=== PATIENT | female | born 1940 | race Caucasian/White ===

== ENCOUNTER 2021-05-23 09:23 | Emergency (ER) | payer MEDICARE, OTHER, SELFPAY ==
[2021-05-23 09:39] VITALS: BP 147/56; PULSE 90; RESP 14; TEMP 37.1; O2SAT 97
--- NOTE | 2021-05-23 10:14 | ED.SKABFB ---
HPI - Skin/Abscess/Foreign Bdy General Chief complaint: Skin/Abscess/Foreign Body Stated complaint: Rash and Swollen Face, Rash on Arms Time Seen by Provider: 05/23/21 10:07 Source: patient and RN notes reviewed Mode of arrival: ambulatory Limitations: no limitations History of Present Illness HPI narrative: Patient presents today complaining of a rash to her bilateral hands, right elbow, and face x2 days after pulling weeds in her yard. States the swelling in her face is worse this morning. She has been using calamine lotion, Benadryl, and Claritin with mild relief. complaint: rash Related Data Home Medications Medication Instructions Recorded Confirmed aspirin [Aspirin Childrens] 81 mg PO DAILY 05/23/21 05/23/21 atorvastatin 80 mg PO DAILY 05/23/21 05/23/21 carvedilol 6.25 mg PO DAILY 05/23/21 05/23/21 losartan 50 mg PO DAILY 05/23/21 05/23/21 pantoprazole 40 mg PO DAILY 05/23/21 05/23/21 Allergies Allergy/AdvReac Type Severity Reaction Status Date / Time No Known Allergies Allergy Verified 05/23/21 09:59 Review of Systems Review of Systems: Narrative: CONSTITUTIONAL: Denies body aches, fever, chills, or sweats. EYES: Denies visual changes, redness, or discharge. ENT: Denies rhinorrhea, congestion, sore throat, or otalgia. CARDIOVASCULAR: Denies chest pain, palpitations, or edema. RESPIRATORY: Denies cough or dyspnea. GASTROINTESTINAL: Denies abdominal pain, nausea, vomiting, or diarrhea. GENITOURINARY: Denies dysuria or hematuria. SKIN:+ Rash. MUSCULOSKELETAL: Denies back pain, joint pain, or myalgia. NEUROLOGIC: Denies headache, numbness, tingling, or weakness. PSYCH: Denies depression or anxiety. [facility] Past Medical History Medical History (Updated 05/23/21 @ 10:20 by Annie Dasilva, [facility], ) GERD (gastroesophageal reflux disease) High cholesterol Hypertension Comments At time of signature, I have reviewed and agree with nursing past medical, surgical, social and family history unless otherwise noted. Please see nursing chart for further information. There is no relevant family history pertinent to the presenting complaint Exam Narrative: Exam Narrative: GENERAL: Well-appearing, well-nourished, and in no acute distress. HEAD: Normocephalic, atraumatic. EYES: EOMI. No redness or drainage. Conjunctivae normal. ENT: Mucous membranes pink and moist. NECK: Normal AROM. CHEST: No respiratory distress. EXTREMITIES: Normal range of motion. No edema. SKIN: Warm, dry. Capillary refill normal. Normal skin turgor. Erythematous maculopapular rash to the dorsums of the bilateral hands, extending to the right elbow. Similar rash to the forehead, bilateral cheeks and temples with mild edema to the right cheek and right lower eyelid. NEURO: No focal deficits. Alert and oriented x3. Gait steady. PSYCH: Normal affect. No signs of depression or anxiety. Course Vital Signs Vital signs: Vital Signs Temperature 98.7 F 05/23/21 09:39 Pulse Rate 90 05/23/21 09:39 Respiratory Rate 14 05/23/21 09:39 Blood Pressure 147/56 H 05/23/21 09:39 Pulse Oximetry 97 05/23/21 09:39 Temperature 98.7 F 05/23/21 09:39 Pulse Rate 90 05/23/21 09:39 Respiratory Rate 14 05/23/21 09:39 Blood Pressure 147/56 H 05/23/21 09:39 Pulse Oximetry 97 05/23/21 09:39 Reviewed. Pt has been instructed to follow up with her PCP regarding her elevated blood pressure today. MDM - Skin/Abscess/Foreign Bdy Differential Diagnosis Differential diagnosis: Likely urticaria, cellulitis, eczema, insect bites, impetigo and contact dermatitis Critical Care Time Critical Care Time Critical Care Time: No Discharge Plan Discharge Clinical Impression: Contact dermatitis Qualifiers: Contact dermatitis type: unspecified Contact dermatitis trigger: unspecified trigger Qualified Code(s): L25.9 - Unspecified contact dermatitis, unspecified cause Patient Disposition: Home, Self-Care Condition: Stable
== END 2021-05-23 10:21 | disposition home or self-care (01) ==
PROVIDERS: Emergency Provider Nurse Practitioner; PCP Internal Medicine
DX: L25.9 Unspecified contact dermatitis, unspecified cause (principal); K21.9 Gastro-esophageal reflux disease without esophagitis; E78.00 Pure hypercholesterolemia, unspecified; I10 Essential (primary) hypertension
CPT/HCPCS: 99203; G0463

== ENCOUNTER 2022-12-23 13:47 | Outpatient (CLI) | payer MEDICARE, SELFPAY ==
--- NOTE | 2022-12-23 14:45 | ECG_ITS ---
Measurements Intervals [place] Rate: 69 P: 31 CO: 170 QRS: -4 QRSD: 89 T: 21 QT: 388 QTc: 417 Interpretive Statements SINUS RHYTHM MODERATE VOLTAGE CRITERIA FOR LVH, CONSIDER NORMAL VARIANT [MEETS CRITERIA IN ONE OF: R(aVL), S(V1), R(V5), R(V5/V6)+S(V1)] NO PREVIOUS ECG AVAILABLE FOR COMPARISON Electronically Signed On 12-24-2022 8:17:51 REVENUE ANALYST by Rhonda Cuevas M.D.
[2022-12-23 15:11] LABS: Basophils Absolute Auto 0.1 K/mm3 (0.0-0.1); Basophils Percent Auto 0.9 % (0.2-1.2); Eosinophils Absolute Auto 0.3 K/mm3 (0-0.3); Eosinophils Percent Auto 3.7 % (0-4.4); Hematocrit 39.8 % (37.0-47.0); Immature Granulocyte Absolute 0.02 K/mm3 (0.00-0.031); Immature Granulocyte Percent A 0.2 % (0-0.5); Lymphocytes Absolute Auto 3.12 K/mm3 (0.9-3.2); Mean Corpuscular HGB Conc 32.7 g/dl (32-36); Mean Corpuscular Hemoglobin 33.4 pg (26-34); Mean Corpuscular Volume 102.3 fl (80-100); Mean Platelet Volume 9.5 fl (7.4-10.4); Monocytes Absolute Auto 0.8 K/mm3 (0.1-0.6); Monocytes Percent Auto 8.8 % (2.6-8.5); Neutrophils Absolute Auto 4.8 K/mm3 (1.3-6.7); Neutrophils Percent Auto 52.4 % (45.5-73.1); Platelet Count Result 236 k/mm3 (150-375); Red Blood Count 3.89 M/mm3 (4.2-5.4); Red Cell Distribution Width 13.1 % (11.5-14.5); White Blood Count 9.2 K/mm3 (4.5-10.0)
[2022-12-23 15:23] LABS: Prothrombin Time 13.1 Seconds (11.1-14.7)
[2022-12-23 15:24] LABS: Partial Thromboplastin Time 23.9 SECONDS (22.3-36.8)
[2022-12-23 15:36] LABS: Alanine Aminotransferase 22 U/L (6-35); Albumin Level 4.2 g/dL (3.5-5.1); Alkaline Phosphatase 109 U/L (38-126); Anion Gap 4 mmol/L (8-16); Aspartate Amino Transferase 28 U/L (14-36); Bilirubin,Total 0.6 mg/dL (0.2-1.3); Blood Urea Nitrogen 18 mg/dL (7-17); Calcium 8.8 mg/dL (8.4-10.2); Carbon Dioxide 29 mmol/L (22-30); Chloride 105 mmol/L (98-107); Estimated Glomerular Filt Rate > 60; Glucose 120 mg/dL (65-110); Sodium 138 mmol/L (137-145)
== END 2022-12-23 13:48 | disposition home or self-care (01) ==
PROVIDERS: PCP Internal Medicine; Visit Provider Urology
DX: N81.4 Uterovaginal prolapse, unspecified (principal); I10 Essential (primary) hypertension; Z01.818 Encounter for other preprocedural examination
CPT/HCPCS: 36415; 80053; 85025; 85610; 85730; 87086; 93005

== ENCOUNTER 2023-01-06 02:49 | Day surgery (SDC) | payer MEDICARE, SELFPAY ==
--- NOTE | 2022-12-23 13:21 | PC.NURSE ---
PRE-OP INSTRUCTIONS, PLEASE READ CAREFULLY Report to the Outpatient Waiting Room, entrance under the green pavilion located off [facility], at time _0700_ on date _01/06/23_. Planned Procedure Time: _0900_. PACK A SMALL OVERNIGHT BAG AND LEAVE IN THE CAR Time changes happen often and if your time is changed the preop area will call you the afternoon before. - You and your visitor will be asked to self-screen and do not enter if you have any COVID symptoms. - Only one visitor is requested with a max of two and NO children visitors are allowed at this time. - The patient visitor may be requested to leave or wait in car when not with patient due to distancing restrictions. - A mask is optional within the hospital at this time. -VISITING HOURS 8AM-8PM Patients may have clear liquids (water, carbonated beverages, clear teas, apple juice) until 3 hours prior to surgery (0600 AM) with a maximum of 20 ounces. - No food from midnight until time of surgery Take the following medications with a SIP of water the morning of surgery: _CARVEDILOL__ DO NOT STOP ANY OF YOUR OTHER PRESCRIPTION MEDICATIONS PRIOR TO SURGERY ?EXCEPT THE FOLLOWING Medications to discontinue _ASPIRIN PER DR. WILSON INSTRUCTIONS. ALL VITAMINS & SUPPLEMENTS 7 DAYS PRIOR TO SURGERY, Date to take last dose 12/29/22_ Please no make-up, nail kyrgyz, hairspray, perfume, deodorant, or body powder the day of surgery. No jewelry (including any body piercings) or valuables the day of surgery, leave them at home. Please take a shower or bath the night before, or the morning of, surgery with an antibacterial soap. Wear comfortable, loose fitting clothing. - Jewelry must be removed prior to entering the operating room. Rings and piercings that are not removed may be cut off. - The hospital will not accept responsibility for valuables. - Please leave all valuables, including medications, at home the day of surgery. If you are going home after surgery, a licensed team otr truck driver must drive you home. - NO public transportation without another adult if you receive anesthesia. - We recommend that an adult stay with you for 24 hours following discharge. - We also recommend that you do not drive, make important decision, drink alcoholic beverages, or take any drugs that were not prescribed by your health care provider for at least 24 hours after your discharge time. Follow any additional instructions given to you from your surgeon. If you or anyone in your household have experienced Covid symptoms in the past week, please notify your surgeon or the nurse liaison at the phone number below for possible testing. Instructions given to _PATIENT_and asked if any additional questions and then verbalized understanding. Patient advised to call surgeon office or pre surgery nurse liaison [phone] if any additional questions.
[2022-12-23 14:23] VITALS: BP 186/70; PULSE 68; RESP 20; TEMP 36.9; O2SAT 97; BMI 25.3
--- NOTE | 2023-01-05 08:19 | PM.IMHP ---
H&P: HPI History of Present Illness Date/Time: 01/05/23 08:19 Chief Complaint: pelvic organ prolapse Narrative: she has history of prolapse. She has history of stress incontinence as well. This resolved as her prolapse worsened. She presents for a surgical procedure for her prolapse Review of Systems Review of Systems: All systems reviewed & are unremarkable except as noted in HPI and below PMFSH Past Medical History Medical History GERD (gastroesophageal reflux disease) High cholesterol Hypertension Social History Social History Smoking status: Never smoker Second hand tobacco smoke exposure: No Alcohol intake: never Substance use: never Substance use type: does not use Living arrangements: alone Spiritual care concerns: No Meds Home Medications and Allergies Home Medications Medication Instructions Recorded Confirmed Type aspirin 81 mg chewable tablet 81 mg PO DAILY 05/23/21 12/23/22 History (Aspirin Childrens) carvedilol 6.25 mg tablet 6.25 mg PO BID 05/23/21 12/23/22 History pantoprazole 40 mg tablet,delayed 40 mg PO DAILY 05/23/21 12/23/22 History release Ca 600 mg-D3 20 mcg-mag oxide 50 tablet PO DAILY 12/23/22 History vc-Rp-xmirkj-manganese-boron tablet (Calcium 600-D3 Plus (mag-zinc)) [place] 3 500 mg 2XW 12/23/22 12/23/22 History atorvastatin 40 mg tablet 40 mg HS 12/23/22 12/23/22 History coenzyme Q10 100 mg capsule 100 mg PO DAILY 12/23/22 12/23/22 History (CoQ-10) garlic 1,000 mg capsule 1,000 mg PO DAILY 12/23/22 12/23/22 History ginkgo biloba extract-Panax 1 cap PO DAILY 12/23/22 12/23/22 History ginseng root extract 60 mg-100 mg capsule losartan 100 mg tablet 100 mg QAM 12/23/22 12/23/22 History turmeric root extract 500 mg 500 mg PO DAILY 12/23/22 12/23/22 History capsule vit C 250 mg-vit E 90 mg-zinc 40 1 tablet PO BID 12/23/22 12/23/22 History mg-copper 1 vi-lhqlik-afociq capsule (PreserVision AREDS-2) vitamin E 670 mg (1,000 unit) 670 mg PO DAILY 12/23/22 12/23/22 History capsule Allergies Allergy/AdvReac Type Severity Reaction Status Date / Time No Known Allergies Allergy Verified 12/23/22 14:08 Exam Narrative: cystocele +4. [place] at +1 minimal urethral mobility alert orient x3 normal breathing Assessment and Plan Assessment and plan (1) Uterine prolapse: Code(s): N81.4 - Uterovaginal prolapse, unspecified Status: Acute (2) BALTA (stress urinary incontinence, female): Code(s): N39.3 - Stress incontinence (female) (male) Status: Acute (3) Intrinsic sphincter deficiency (ISD): Code(s): N36.42 - Intrinsic sphincter deficiency (ISD) Status: Acute Plan plan for prolapse repair as well as stress incontinence procedure. Colpocleisis, possible sling, possible bulking agent, possible cystocele repair with perineorrhaphy. She understands risks of bleeding, infection, damage surrounding organs, damage to the urinary tract, damage to the bowel, recurrence of prolapse, inability to have penetrative intercourse, some leg pain, postoperative voiding dysfunction including incontinence and retention, mesh related complications. She agrees to proceed
[2023-01-06] VITALS (10 sets, daily range): BP systolic 127–157; BP diastolic 58–99; PULSE 84–100; RESP 10–18; TEMP 36.4–36.5; O2SAT 95–100
--- NOTE | 2023-01-06 07:07 | WPDHPUPDATE1 ---
History and Physical Update Update Date/Time: 01/06/23 07:07 History and Physical has been reviewed, including an updated exam of the patient. There are NO changes in the patient's condition. Risks, benefits, and alternatives have been discussed and questions answered. Patient agrees to proceed with procedure.
--- NOTE | 2023-01-06 07:49 | WPDANESEPPF ---
Anes - Initial Pre Proc Eval Procedure: Operation Date: 01/06/23 09:30 Proposed Procedures p Colpocleisis - Oc Roldan MD Date/Time: 01/06/23 07:49 Surgeon: Oc Roldan MD Pre Op Diagnosis: Cystocele with Prolapse, Stress Incont Patient Data Age: 82 Gender: F Height: 1.63 m Weight: 66.9 kg Last Vital Signs Temp 36.9 C 12/23/22 14:23 Pulse 68 12/23/22 14:23 Resp 20 12/23/22 14:23 BP 186/70 H 12/23/22 14:23 Pulse Ox 97 12/23/22 14:23 O2 Del Method Room Air 12/23/22 14:23 Allergies Allergy/AdvReac Type Severity Reaction Status Date / Time No Known Allergies Allergy Verified 01/06/23 08:37 Home Medications Medication Instructions Recorded Confirmed Type aspirin 81 mg chewable tablet 81 mg PO DAILY 05/23/21 12/23/22 History (Aspirin Childrens) carvedilol 6.25 mg tablet 6.25 mg PO BID 05/23/21 12/23/22 History pantoprazole 40 mg tablet,delayed 40 mg PO DAILY 05/23/21 12/23/22 History release Ca 600 mg-D3 20 mcg-mag oxide 50 tablet PO DAILY 12/23/22 History vz-Sh-zvvtpa-manganese-boron tablet (Calcium 600-D3 Plus (mag-zinc)) [place] 3 500 mg 2XW 12/23/22 12/23/22 History atorvastatin 40 mg tablet 40 mg HS 12/23/22 12/23/22 History coenzyme Q10 100 mg capsule 100 mg PO DAILY 12/23/22 12/23/22 History (CoQ-10) garlic 1,000 mg capsule 1,000 mg PO DAILY 12/23/22 12/23/22 History ginkgo biloba extract-Panax 1 cap PO DAILY 12/23/22 12/23/22 History ginseng root extract 60 mg-100 mg capsule losartan 100 mg tablet 100 mg QAM 12/23/22 12/23/22 History turmeric root extract 500 mg 500 mg PO DAILY 12/23/22 12/23/22 History capsule vit C 250 mg-vit E 90 mg-zinc 40 1 tablet PO BID 12/23/22 12/23/22 History mg-copper 1 mh-quyuca-zktlvz capsule (PreserVision AREDS-2) vitamin E 670 mg (1,000 unit) 670 mg PO DAILY 12/23/22 12/23/22 History capsule Patient hx anesthesia problems: none Family hx anesthesia problems: none Results Review: All pre-operative results and documents have been reviewed as part of the pre-operative evaluation. [facility] Past Medical History Medical History (Updated 01/06/23 @ 07:50 by Alan Jauregui MD) CAD (coronary artery disease) GERD (gastroesophageal reflux disease) High cholesterol Hypertension Surgical History Surgical History (Updated 01/06/23 @ 07:50 by Alan Jauregui MD) History of coronary artery stent placement Social History Social History Smoking status: Never smoker Second hand tobacco smoke exposure: No Alcohol intake: never Substance use: never Substance use type: does not use Living arrangements: alone Spiritual care concerns: No Anes - Eval Final PreProcedure Day of Procedure 01/06/23 07:49 Patient weight: normal Heart: regular rate and rhythm Lungs: clear to auscultation Airway: Mallampati scale class II Neurological: alert and oriented Last oral intake: >/= 8 hours ASA classification: III Emergent: no Anesthetic plan: proceed Anesthesia type and monitoring: general LMA and standard monitoring Results Review: All pre-operative results and documents have been reviewed as part of the pre-operative evaluation. Informed Consent: The patient's anesthetic plan and its attendant risks and benefits were discussed with the patient/family/POA. Questions were solicited and answers provided to the satisfaction of the patient/family/POA.
[2023-01-06] MEDS: LACTATED RINGERS 1,000 ML 30 ML IV CONT (08:36)
[2023-01-06] MEDS: ceFAZolin 2 GM/D5W 50 ML 2 GM/50 ML BAG IVPB (09:08)
[2023-01-06] MEDS: BUPIVACAINE/EPINEPHRINE 0.5% 10 ML VIAL 40 ML INFILTRATE (09:42)
[2023-01-06] MEDS: KETOROLAC 15 MG/ML VIAL (*BKC) IV PUSH (10:17)
--- NOTE | 2023-01-06 10:28 | P.OP_ITS ---
Procedure Note - Detailed Date of Procedure 01/06/23 Pre-op Diagnosis Cystocele, uterine Prolapse, female perineal laxity, Stress Incontinence Post-op Diagnosis Same Procedure Performed cystocele repair perineorrhaphy mid urethral sling Surgeon Oc Roldan MD Supervisor [employer] [place] Anesthesia General Indications this is a woman pelvic organ prolapse as well as stress incontinence. She is not sexually active. She presents for the above operation. She understands risks of bleeding, infection, damage to the urinary tract, damage to the bowel, bowel injury, recurrence of prolapse, inability to have penetrative intercourse, mesh related complications including exposure and extrusion, postoperative voiding dysfunction including incontinence and retention, hip and leg pain. She agrees to proceed Findings large cystocele. Moderate loss of apical support. Hyper mobile urethra. Female perineal laxity. Description of Procedure She has correctly identified. Informed consent obtained. She from the operating room. She was given general anesthesia. She was placed in dorsal thigh position. She was prepped and draped sterile fashion. Time-out performed. I placed a [place] retractor. I placed a Chou catheter. I grasped the cystocele. It came beyond the vaginal introitus. She had moderate loss of apical support to the level of the hymenal ring. I decided to perform a cystocele repair with significant perineorrhaphy thus simulating a colpocleisis. I grasped the cystocele with Allis clamps. I anesthetized the anterior vaginal wall with local mixed with saline and epinephrine. I made a midline vaginal incision. I dissected the vaginal mucosa off the underlying fascial structures laterally and the well past the apex. I then performed a significant cystocele repair using interrupted 0 Vicryl sutures. This completely reduced the bladder prolapse. I then trimmed significant excess vaginal mucosa. I closed the vaginal mucosa with a running 2-0 Vicryl suture. I then turned my attention towards the mid urethral sling. I marked out the thigh incisions. I anesthetized the skin and made those incisions. I then anesthetized the anterior vaginal wall the mid urethra. I made 1 cm incision. I dissected out laterally taking great care not to injure the refill vaginal wall. Passed the helical trocars. I did this 1st on the left and then on the right. From the thigh incision towards the vaginal incision. Sling was connected to the trocars above the thigh incision. I tensioned appropriately. I cut and removed the plastic sheaths. I then closed incision with 2-0 Vicryl. On cystoscopy she had moderate trabeculations there is no bladder abnormalities. Both ureters were seen to excrete clear yellow urine and guidewires were placed up both ureters documenting patency. There was no surgical artifact the bladder or urethra I then anesthetized a jorge-shaped area of skin on the perineum. I removed this area of skin. I then performed a high perineorrhaphy. I did this with -0 Vicryl sutures. I used a 2-0 Vicryl to close the mucosa. There was excellent perineal support. Rectal exam was normal. Her bladder was left empty. She was awakened transferred to PACU in stable condition Estimated Blood Loss 50 Packing No Pathology None sent Complications No immediate complications Condition Stable Disposition PACU
== END 2023-01-06 13:00 | disposition home or self-care (01) ==
PROVIDERS: PCP Internal Medicine; Visit Provider Urology
PROC: (CPT 57120; principal; 2023-01-06 09:30)
DX: N81.4 Uterovaginal prolapse, unspecified (principal); N39.3 Stress incontinence (female) (male); I25.10 Atherosclerotic heart disease of native coronary artery without angina pectoris; I10 Essential (primary) hypertension; E78.00 Pure hypercholesterolemia, unspecified; K21.9 Gastro-esophageal reflux disease without esophagitis; Z79.82 Long term (current) use of aspirin; Z95.5 Presence of coronary angioplasty implant and graft
CPT/HCPCS: 57288; 57240; 36415; 86850; 86900; 86901; C1758; C1769; C1771; J0690; J1885; J2405; J2704; J3010; J7030; J7120

== ENCOUNTER 2023-07-20 09:32 | Emergency (ER) | payer MEDICARE, SELFPAY ==
[2023-07-20 09:45] VITALS: BP 133/74; PULSE 94; RESP 16; TEMP 36.8; O2SAT 97
--- NOTE | 2023-07-20 10:10 | ED.GENADULT ---
HPI - General Adult General Chief complaint: Upper Respiratory Infection Stated complaint: Cough/Congestion Source: patient and RN notes reviewed History of Present Illness HPI narrative: 82 yo F presents to urgent care with complaints of congestion, cough, and for approximately 1 week. Pt states she feels like the congestion is moving down into her chest. Pt has reported some diarrhea at home. Pt is taking mucinex at home with minimal relief. Denies any vomiting, chest pain, SOB, fevers, or chills. Related Data Home Medications Medication Instructions Recorded Confirmed aspirin 81 mg chewable tablet 81 mg PO DAILY 05/23/21 12/23/22 (Aspirin Childrens) carvedilol 6.25 mg tablet 6.25 mg PO BID 05/23/21 12/23/22 pantoprazole 40 mg tablet,delayed 40 mg PO DAILY 05/23/21 12/23/22 release Ca 600 mg-D3 20 mcg-mag oxide 50 tablet PO DAILY 12/23/22 tg-St-ikfmsu-manganese-boron tablet (Calcium 600-D3 Plus (mag-zinc)) [place] 3 500 mg 2XW 12/23/22 12/23/22 atorvastatin 40 mg tablet 40 mg HS 12/23/22 12/23/22 coenzyme Q10 100 mg capsule 100 mg PO DAILY 12/23/22 12/23/22 (CoQ-10) garlic 1,000 mg capsule 1,000 mg PO DAILY 12/23/22 12/23/22 ginkgo biloba extract-Panax 1 cap PO DAILY 12/23/22 12/23/22 ginseng root extract 60 mg-100 mg capsule losartan 100 mg tablet 100 mg QAM 12/23/22 12/23/22 turmeric root extract 500 mg 500 mg PO DAILY 12/23/22 12/23/22 capsule vit C 250 mg-vit E 90 mg-zinc 40 1 tablet PO BID 12/23/22 12/23/22 mg-copper 1 qn-uypyaf-comasm capsule (PreserVision AREDS-2) vitamin E 670 mg (1,000 unit) 670 mg PO DAILY 12/23/22 12/23/22 capsule Allergies Allergy/AdvReac Type Severity Reaction Status Date / Time No Known Allergies Allergy Verified 01/06/23 08:37 Review of Systems Review of Systems: Pertinent positives and pertinent negatives per HPI. [facility] Past Medical History Medical History (Updated 07/20/23 @ 10:19 by Shruthi Blank APRN) CAD (coronary artery disease) GERD (gastroesophageal reflux disease) High cholesterol Hypertension Surgical History Surgical History (Updated 01/06/23 @ 07:50 by Alan Jauregui MD) History of coronary artery stent placement Social History Social History Smoking status: Never smoker Second hand tobacco smoke exposure: No Alcohol intake: never Substance use: never Substance use type: does not use Living arrangements: alone Gender identity (if verbalized by the patient): Female Spiritual care concerns: No Comments At the time of my signature, I reviewed and agree with the nursing past medical, surgical, social, and family history. There is no relevant family history pertinent to the patient complaint. Exam Narrative: GENERAL: This is a well-nourished, well-developed patient, in no apparent distress. HEAD: normocephalic, atraumatic. EYES: Sclera clear/white. Vision is grossly intact. EARS: External ears normal, auditory canals clear and without drainage, TMs normal without perforation. Hearing grossly intact. NOSE: congested THROAT: Mucous membranes moist, posterior pharynx erythremic NECK: Neck supple, non-tender without lymphadenopathy, masses or thyromegaly. CARDIOVASCULAR: Regular rate and rhythm without murmurs, gallops, or rubs. RESPIRATORY: Clear to auscultation. Breath sounds equal bilaterally. No wheezes, rales, or rhonchi. SKIN: warm, intact with no suspicious lesions or rash, good texture and turgor. NEURO: awake, alert, and oriented to person, place and time. There were no obvious focal neurologic abnormalities. Course Course Level of Care: Express Care Visit Vital Signs Vital signs: Vital Signs Temperature 98.3 F 07/20/23 09:45 Pulse Rate 94 07/20/23 09:45 Respiratory Rate 16 07/20/23 09:45 Blood Pressure 133/74 07/20/23 09:45 Pulse Oximetry 97 07/20/23 09:45 Oxygen Delivery Room Air 07/20/23 09:45
== END 2023-07-20 10:44 | disposition home or self-care (01) ==
PROVIDERS: Emergency Provider Nurse Practitioner Family; PCP Internal Medicine
DX: J02.0 Streptococcal pharyngitis (principal); Z20.822 Contact with and (suspected) exposure to COVID-19; I25.10 Atherosclerotic heart disease of native coronary artery without angina pectoris; K21.9 Gastro-esophageal reflux disease without esophagitis; E78.00 Pure hypercholesterolemia, unspecified; I10 Essential (primary) hypertension; Z79.82 Long term (current) use of aspirin
CPT/HCPCS: 87426; 87880; 99213; C9803; G0463

== ENCOUNTER 2025-07-03 11:18 | Emergency (ER) | payer MEDICARE, SELFPAY ==
[2025-07-03 11:25] VITALS: BP 178/93; PULSE 99; RESP 20; TEMP 36.4; O2SAT 97
[2025-07-03 11:49] LABS: EDUAAPPEAR Cloudy; EDUABILI Negative (Negative); EDUABLOOD 1+ (Negative); EDUACOLOR1 Yellow; EDUAGLUCOSE Negative (Negative); EDUAKETONE Negative (Negative); EDUALEUKO 3+ (Negative); EDUANITRATE Positive (Negative); EDUAPH 6.5; EDUAPROTEIN 1+ (Negative); EDUASPGRAVITY 1.020; EDUAUROBILI 1.0
--- NOTE | 2025-07-03 11:54 | ED.FEMALEGU ---
HPI - Female Genitourinary General Chief complaint: Urogenital-Female Stated complaint: Urinary Problem Time Seen by Provider: 07/03/25 11:40 Source: patient Mode of arrival: ambulatory Limitations: no limitations History of Present Illness HPI Narrative: 84-year-old female presents with complaint of urinary frequency, urgency, mild nausea, chills and fatigue. Symptoms for approximately 2 weeks. Afebrile. Denies vomiting. no abdominal or back pain. All systems reviewed and negative except as noted above. Related Data Home Medications ?Medication ?Instructions ?Recorded ?Confirmed ?Last Taken ?Type aspirin 81 mg chewable tablet 81 mg PO DAILY 05/23/21 12/23/22 Unknown History (Aspirin Childrens) Held on 01/06/23. Instructions: Resume on 01/08/23. carvedilol 6.25 mg tablet 6.25 mg PO BID 05/23/21 12/23/22 Unknown History pantoprazole 40 mg tablet,delayed 40 mg PO DAILY 05/23/21 12/23/22 Unknown History release Attica 3 500 mg 2XW 12/23/22 12/23/22 Unknown History calcium 600 mg-D3 20 mcg-magnesium tablet PO DAILY 12/23/22 Unknown History 50 qa-Xj-modazy-melanie-boron tablet (Calcium 600-D3 Plus (mag-zinc)) coenzyme Q10 100 mg capsule 100 mg PO DAILY 12/23/22 12/23/22 Unknown History (CoQ-10) garlic 1,000 mg capsule 1,000 mg PO DAILY 12/23/22 12/23/22 Unknown History ginkgo biloba extract-Panax 1 cap PO DAILY 12/23/22 12/23/22 Unknown History ginseng root extract 60 mg-100 mg capsule losartan 100 mg tablet 100 mg QAM 12/23/22 12/23/22 Unknown History turmeric root extract 500 mg 500 mg PO DAILY 12/23/22 12/23/22 Unknown History capsule vit C 250 mg-vit E 90 mg-zinc 40 1 tablet PO BID 12/23/22 12/23/22 Unknown History mg-copper 1 tn-gwxyfk-ylhzpy capsule (PreserVision AREDS-2) vitamin E 670 mg (1,000 unit) 670 mg PO DAILY 12/23/22 12/23/22 Unknown History capsule rzprqejy-clqlcgudf-milibuob 3.5 drp 07/03/25 Unknown History mg/mL-10,000 unit/mL-0.1% eye drops Allergies Allergy/AdvReac Type Severity Reaction Status Date / Time No Known Allergies Allergy Verified 07/03/25 11:21 [facility] Past Medical History Medical History (Updated 07/03/25 @ 11:51 by Melanie Meeks NP) CAD (coronary artery disease) GERD (gastroesophageal reflux disease) Hypertension High cholesterol Surgical History Surgical History (Updated 01/06/23 @ 07:50 by Alan Jauregui MD) History of coronary artery stent placement Social History Social History Smoking status: Never smoker Second hand tobacco smoke exposure: No Alcohol intake: never Substance use: never Substance use type: does not use Living arrangements: alone Gender identity (if verbalized by the patient): Female Spiritual care concerns: No Comments At time of signature, agree with nursing past medical, surgical, social and family history. There is no relevant family history pertinent to the presenting complaint. Exam Narrative: GENERAL: This is a well-nourished, well-developed patient, in no apparent distress. HEAD: normocephalic, atraumatic. EYES: PERRL. Sclera clear/white. Vision is grossly intact. EARS: External ears normal NOSE: External nose normal NECK: Neck supple, non-tender without lymphadenopathy, masses or thyromegaly. CARDIOVASCULAR: Regular rate and rhythm without murmurs, gallops, or rubs. RESPIRATORY: Clear to auscultation. Breath sounds equal bilaterally. No wheezes, rales, or rhonchi. SKIN: warm, Dry, intact with no suspicious lesions or rash, good texture and turgor. NEURO: awake, alert, and oriented to person, place and time. There were no obvious focal neurologic abnormalities. EXTREMITIES: No joint tenderness, effusion, or edema noted. Course Course Level of Care: Express Care Visit Vital Signs Vital signs: Vital Signs Temperature 36.4 C L 07/03/25 11:25 Pulse Rate 99 07/03/25 11:25 Respiratory Rate 20 07/03/25 11:25 Blood Pressure 178/93 H 07/03/25 11:25 Pulse Oximetry 97 07/03/25 11:25 Oxygen Delivery Room Air 07/03/25 11:25 Temperature 36.4 C L 07/03/25 11:25 Pulse Rate 99 07/03/25 11:25 Respiratory Rate 20 07/03/25 11:25 Blood Pressure 178/93 H 07/03/25 11:25 Pulse Oximetry 97 07/03/25 11:25 Oxygen Delivery Room Air 07/03/25 11:25 Reviewed MDM - Female Genitourinary MDM Narrative Medical decision making narrative: urinalysis 3+ leukocytes, positive nitrates, 1+ blood. Will treat with Augmentin. Patient is well-appearing, nontoxic. Afebrile. Differential Diagnosis Differential diagnosis: Likely urinary tract infection Lab Data Labs: Lab Results 07/03/25 Range/Units 11:35 POC Urine Color Yellow POC Urine Clarity Cloudy POC Urine pH 6.5 POC Ur Specif Viola 1.020 POC Urine Protein 1+ (Negative) POC Ur Glucose (UA) Negative (Negative) POC Urine Ketones Negative (Negative) POC Urine Blood 1+ (Negative) POC Urine Nitrite Positive (Negative) POC Urine Bilirubin Negative (Negative) POC Urine Urobilinogen 1.0 POC U Leukocyte Esteras 3+ (Negative) Discharge Plan Discharge Clinical Impression: Urinary tract infection Patient Disposition: Home Condition: Stable Instructions: Antibiotic Form, Urinary Tract Infection in Women (ED) Additional Instructions: Take antibiotic as prescribed until gone. Drink at least 64 oz of water a day. See your doctor if symptoms are not improving. Patient Language: Austrian Prescriptions: New amoxicillin-pot clavulanate [Augmentin] 500-125 mg tablet 1 tablet PO BID 7 Days Qty: 14 0RF No Action carvedilol 6.25 mg tablet 6.25 mg PO BID pantoprazole 40 mg tablet,delayed release (DR/EC) 40 mg PO DAILY aspirin [Aspirin Childrens] 81 mg Tablet,Chewable 81 mg PO DAILY neomycin-polymyxin B-dexameth 3.5mg/mL-10,000 unit/mL-0.1 % drops,suspension vitamin E 670 mg (1,000 unit) Capsule 670 mg PO DAILY garlic 1,000 mg Capsule 1,000 mg PO DAILY losartan 100 mg tablet 100 mg QAM coenzyme Q10 [CoQ-10] 100 mg Capsule 100 mg PO DAILY ginkgo biloba-Panax ginseng rt 60-100 mg Capsule 1 cap PO DAILY turmeric root extract 500 mg Capsule 500 mg PO DAILY PreserVision AREDS-2 250-90-40-1 mg Capsule 1 tablet PO BID Ca-D3-mag rx-ojem-udl-nell-bor [Calcium 600-D3 Plus (mag-zinc)] 600 mg calcium- 20 mcg-50 mg Tablet PO DAILY Attica 3 500 mg 2XW docusate sodium [Colace] 100 mg capsule 100 mg PO BID Qty: 60 0RF tramadol 50 mg tablet 50 mg PO Q6H PRN (Reason: pain) Qty: 20 0RF Follow-up/Referrals: Wolf,Mehran Adames MD [Primary Care Provider, Unknown] Time of Disposition: 11:52
--- OUTSIDE RECORDS SUMMARY | 2025-07-03 12:01 | XMS_ITS | Encounter Summary ---
Author Organization [facility] Address [address] [place] [address] Phone Care Team Providers Care Bookkeeping Machine Operator Name Role Phone Mehran Bloom MD Primary Care Provider [phone] Salvador Harmon MD Unavailable Reji Donald MD Unavailable [phone] Reason for Visit * Reason Comments Medication Refill Encounter Details Date Type Department Care Team (Late st Contact Info) Description 04/16/2024 Refill [facility] - Internal Medicine - [place] [address] [place] [id number] Mehran Bloom MD [address] [place] [address] Medication Refill Social History Tobacco Use Types Packs/Day Years Used Date Smoking Tobacco: Never Passive Smoke Exposure: Never Smokeless Tobacco: Never Alcohol Use Standard Drinks/Week Comments Not Currently 0 (1 standard drink = 0.6 oz pur e alcohol) glass of wine rarely [facility] Utilities Answer Date Recorded In the past 12 months has [employer] electric, gas, oil, or water company threatened to shut off services in your home? No 02/08/2024 Social Connection and Isolation Panel Answer Date Recorded In a typical week, how many times do you talk on the phone with family, friends, or neighbors? More than three times a week 02/08/2024 How often do you get togethe r with friends or relatives? More than three times a week 02/08/2024 How often do you attend chur ch or jainism services? More than 4 times per year 02/08/2024 Do you belong to any clubs o r organizations such as catholic groups, unions, fraternal or athletic groups, or school groups? Yes 02/08/2024 How often do you attend meet ings of the clubs or organizations you belong to? More than 4 times per year 02/08/2024 Are you , , di vorced, , never , or living with a partner? 02/08/2024 AUDIT-C Answer Date Recorded Q1: How often do you have a drink containing alc ohol? Never 02/08/2024 Average Number of Drinks Not on file 024 Q3: How often do you have si x or more drinks on one occasion? Never 02/08/2024 Overall Financial Resource Strain (CARDIA) Answe r Date Recorded How hard is it for you to pa y for the very basics like food, housing, medical care, and heating? Not hard at all 02/08/2024 PHQ-2 Answer Date Recorded Total Score - Questions 1-9 1 01/12 [facility] - Occupational Stress Questionnaire Answer Date Recorded Do you feel stress - tense, restless, nervous, or anxious, or unable to sleep at night because your mind is troubled all the time - these days? Not at all 02/08/2024 Exercise Vital Sign Answer Date Recorde d On average, how many days pe r week do you engage in moderate to strenuous exercise (like a brisk walk)? 0 days 02/08/2024 On average, how many minutes do you engage in exercise at this level? 0 min 02/08/2024 Hunger Vital Sign Answer Date Recorded Within the past 12 months, y ou worried that your food would run out before you got the money to buy more. Never true 02/08/20 24 Within the past 12 months, t he food you bought just didn't last and you didn't have money to get more. Never true 02/08/2024 PRAPARE - Transportation Answer Date Re corded In the past 12 months, has l ack of transportation kept you from medical appointments or from getting medications? No 01/12 In the past 12 months, has l ack of transportation kept you from meetings, work, or from getting things needed for daily living? No 02/08/2024 Housing Stability Vital Sign Answer Gerry e Recorded In the last 12 months, was t here a time when you were not able to pay the mortgage or rent on time? No 02/08/2024 In the last 12 months, how many places have you lived? 1 02/08/2024 In the last 12 months, was t here a time when you did not have a steady place to sleep or slept in a group home (including now)? 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 Requested Prescriptions Pending Prescriptions Disp Refills pantoprazole (PROTONIX) 40 MG Tablet Delayed Response [Pharmacy Med Name: PANTOPRAZOLE SODIUM 40MG TABLET DR] 90 Tablet 0 Sig: TAKE ONE TABLET BY MOUTH EVERY DAY Proton Pump Inhibitors Protocol Passed - 04/16/2024 3:37 PM Passed - Visit with relevant provider in past 12 months or upcoming 90 days Recent Visits Date Type Provider Dept 03/12/24 Office Visit Mehran Bloom MD [facility] [place] 02/27/24 Office Visit Mehran Bloom MD [facility] [place] 02/08/24 Office Visit Mehran Bloom MD [facility] [place] 08/14/23 Telemedicine Mehran Bloom MD [facility] [place] 08/07/23 Office Visit Mehran Bloom MD [facility] [place] 05/04/23 Office Visit Mehran Bloom MD [facility] [place] Showing recent visits within past 365 days and meeting all other requirements Future Appointments Date Type Provider Dept 05/14/24 Appointment Mehran Bloom MD [facility] Showing future appointments within next 90 days and meeting all other requirements documented in this encounter Plan of Treatment Upcoming Encounters Date Type Department Care Team (Late st Contact Info) Description 08/25/2025 10:00 AM CDT Office Visit [facility] - Primary Care - [place] [address] [place] [address] Mehran Bloom MD [address] [place] [address] 10/30/2025 10:00 AM VACCINE MANAGER Office Visit [facility] - Pulmonology & Sleep Medicine [facility] [address] [place] [address] Salvador Harmon MD [address] [place] [address] documented as of this encounter Visit Diagnoses Not on filedocumented in this encounter Additional Health Concerns Assessment Noted Time PHQ-9 Depression Total Score: 1 02/08/20 24 8:58 AM CDT documented as of this encounter Care Teams Bookkeeping Machine Operator Relationship Specialty Start Date End Date Mehran Bloom MD PCP - General Internal Medicine 09/24/15 Salvador Harmon MD [address] [place] [address] Consulting Physician Pulmonary Disease 01/14/25 Reji Donald MD [address] [place] [address] Consulting Physician Neurology 04/24/25 documented as of this encounter
--- OUTSIDE RECORDS SUMMARY | 2025-07-03 12:01 | XMS_ITS | Clinical Summary ---
Author Organization [facility] Address [address] [place] [address] Phone Care Team Providers Care Athletic Monitor Name Role Phone Mehran Bloom MD Primary Care Provider [phone] Salvador Harmon MD Unavailable Reji Donald MD Unavailable [phone] Medications Acetaminophen (EQ ARTHRITIS PAIN PO) Take 2 Tabs by mouth daily. Active Ascorbic Acid (VITAMIN C PO) Take 1 Tab by mouth daily. Active atorvastatin (LIPITOR) 40 MG Tablet Take 1 Tablet by mouth nightly. 90 Tablet 1 5 Active losartan (COZAAR) 100 MG Tablet TAKE 1 TABLET BY MOUTH DAILY. 90 Tablet 1 5 Active pantoprazole (PROTONIX) 40 MG Tablet Delayed Response TAKE ONE TABLET BY MOUTH EVERY DAY 90 Tablet 5 Active carvedilol (COREG) 6.25 MG Tablet Take 1 Tablet by mouth 2 times daily. 180 Tablet 1 5 Active Additional Information Patient not taking.Reported on 07/03/2025 Active Problems Problem Noted Date Diagnosed Date ILD (interstitial lung disease) 01/14/2025 Primary pulmonary hypertension 01/14/2025 Cerebrovascular accident (CVA) of left basal elisha glia 05/14/2024 Stress incontinence of urine 12/29/2022 Coronary artery disease invo lving [place] coronary artery of [place] heart with angina pectoris 11/24/2020 Essential hypertension, benign 05/31/2016 Other hyperlipidemia 05/31/2016 Gastroesophageal reflux disease without esophagi tis 05/31/2016 Resolved Problems Problem Noted Date Diagnosed Date Resolved Date Other chest pain 11/24/2020 08/07/2023 Community acquired bacterial pneumonia 05/31/2016 11/24/2020 Acute cystitis 05/31/2016 11/24/2020 Hypokalemia 05/31/2016 11/24/2020 Encounters Date Type Department Care Team Description 07/03/2025 Nurse Triage [facility] [address] [place] [address] Mehran Bloom MD Appointment 05/26/2025 Results Follow-Up [facility] Internal Medicine [facility] [address] [place] [address] Mehran Bloom MD MRI L-SPINE W/O CONTRAST 05/24/2025 10:30 AM CDT - 05/24/2025 11:59 PM CDT Hospital Encounter [facility] MRI [address] [place] [phone] Mehran Bloom MD Discharge Disposition: Discharged to home or Selfcare 05/22/2025 10:40 AM CDT Office Visit [facility] Internal Medicine [facility] [address] [place] [address] Mehran Bloom MD Essential hypertension, benign (Primary Dx); Chronic bilateral low back pain with bilateral sciatica; Other hyperlipidemia; Coronary artery disease involving [place] coronary artery of [place] heart with angina pectoris (HCC); Gastroesophageal reflux disease without esophagitis Discharge Disposition: Discharged to home or Selfcare 05/22/2025 Travel 04/25/2025 Travel 04/22/2025 Refill [facility] Internal Medicine [facility] [address] [place] [phone] Mehran Bloom MD Medication Refill 04/17/2025 10:30 AM CDT Office Visit [facility] Pulmonology & Sleep Medicine [facility] [address] [place] [phone] Salvador Harmon MD ILD (interstitial lung disease) (HCC) (Primary Dx); Essential hypertension, benign; Gastroesophageal reflux disease without esophagitis Discharge Disposition: Discharged to home or Selfcare 04/17/2025 Travel from Last 3 Months Immunizations Immunization Administration Dates Next Due Covid-19, Mrna, Lnp-s, PF, 1 00 mcg/0.5 mL Dose (Moderna) 07/07/2021,06/09/2021 Influenza Vaccine greater than 3 yrs 10/03/2018 Influenza Vaccine, Quadrivalent, PF 08/03/2022,1 11/24/2020,08/12/2020 Influenza, Quadrivalent, Adjuvanted 08/07/2023 Influenza, Trivalent, Adjuvanted, PF 08/15/2024 Pneumococcal Vaccine - 13 Valent 06/01/2016,11/2013 Pneumococcal Vaccine Adult - 23 Valent 6 Family History Medical History Relation Name Comments Congestive Heart Failure Father Heart Attack Father Parkinsonism Mother Relation Name Status Comments Brother Father Mother Social History Tobacco Use Types Packs/Day Years Used Date Smoking Tobacco: Never Passive Smoke Exposure: Never Smokeless Tobacco: Never Tobacco Cessation:Counseling Given: Not Answered Alcohol Use Standard Drinks/Week Comments Not Currently 0 (1 standard drink = 0.6 oz pur e alcohol) glass of wine rarely [facility] Utilities Answer Date Recorded In the past 12 months has flexReceipts, gas, oil, or water [employer] threatened to shut off services in your [...] often do you attend chur ch or judaism services? More than 4 times per year 02/08/2024 Do you belong to any clubs o r organizations such as moravian groups, unions, fraternal or athletic groups, or [...] Date Recorded Total Score - Questions 1-9 0 07/2025 [facility] - Occupational Stress Questionnaire Answer Date Recorded [...] place to sleep or slept in a long-term (including now)? 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 Not on file Not on file Not on file Last Filed Vital Signs Vital Sign Reading Time Taken Comments Blood Pressure 124/66 05/22/2025 10:48 AM CDT Pulse 76 05/22/2025 10:48 AM CDT Temperature 36.3 C (97.3 F) 05/22/2025 10:48 AM CDT Respiratory Rate 14 04/17/2025 10:40 AM CDT Oxygen Saturation 92% 05/22/2025 10:48 AM CDT Inhaled Oxygen Concentration - - Weight 72.1 kg (159 lb) 05/22/2025 10:48 AM CDT Height 162.6 cm (5' 4) 05/22/2025 10:48 AM CDT Body Mass Index 27.29 05/22/2025 10:48 AM CDT Plan of Treatment Upcoming Encounters Date Type Department Care Team (Late st Contact Info) Description 08/25/2025 10:00 AM CDT Office Visit [facility] - [facility] - [place] [address] [place] [phone] Mehran Bloom MD [address] [place] [address] 10/30/2025 10:00 AM 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[facility] - Pulmonology & Sleep Medicine - [place] [address] [place] [address] Salvador Harmon MD [address] [place] [address] Health Maintenance Due Date Last Done Comments Hepatitis C Virus (HCV) Screening 1940 TdaP Immunization 1940 Respiratory Syncytial Virus (RSV) Immunization (Adult) (1 - 1-dose 75+ series) 2016 SARS-COV-2 Immunization ( season) 2024 07/07/2021, 06/09/2021 Influenza Immunization (#1) 2025 10/0 01/2024, 08/07/2023, 08/03/2022, Additional history exists DEXA Bone Density 05/01/2026 05/01/2024, , 08/10/2017 Pneumococcal Immunization (50+ years) Discontinued 06/01/2016, 06/01/2016, 06/13/2014 Pneumococcal Immunization Combined Discontinued 06/01/2016, 06/01/2016, 06/13/2014 Zoster Immunization Completed 07/23/2021, Hepatitis B Immunization Aged Out No longer eligible based on patient's age to complete this topic Human Papillomavirus (HPV) Immunization Aged Out No longer eligible based on patient's age to complete this topic Meningococcal Immunization (ACWY) Aged Out No longer eligible based on patient's age to complete this topic Rotavirus Immunization Aged Out No lo nger eligible based on patient's age to complete this topic Procedures Procedure Name Priority Date/Time Associated Diagnosis Comments MRI L-SPINE W/O CONTRAST Routine 05/24/2025 11:31 AM CDT Chronic bilateral low back pain with bilateral sciatica NEUROLOGY CONSULT 04/25/2025 12: 00 AM CDT OPHTHALMOLOGY CONSULT 04/09/2025 12:00 AM CDT ELISSA BONE DENSITOMETRY AXIAL SKELETON Routine 05/01/2024 1:49 PM CDT Asymptomatic menopausal state from Last 3 Months or Most Recently Relevant to Health Maintenance Results * MRI L-SPINE W/O CONTRAST (05/24/2025 11:31 AM CDT) Anatomical Region Laterality Modality Spine, L-spine N/A Magnetic Resonan ce 05/26/2025 11:1 0 AM CDT Impressions 05/26/2025 11:13 AM CDT IMPRESSION: Constellation of spondylolisthesis, spondylosis, and degenerative disc disease of the lumbar spine as detailed level by level above. Narrative 05/26/2025 11:13 AM CDT EXAM DESCRIPTION: MRI LUMBAR SPINE WITHOUT CONTRAST REASON FOR STUDY: Chronic low back pain. No provided history of radiculopathy. No provided history of trauma or inciting and/or aggravating events. No cancer history. No intracranial, vascular, or spinal surgeries. TECHNIQUE: Sagittal and axial imaging of the lumbar spine includes T1, T2, STIR sequences. Images saved to PACS. COMPARISON: Relevant portions of CT chest 12/12/2024; DEXA scan 05/01/2024: Reported as osteoporosis; relevant portions of abdominal with chest radiographic series 01/28/2022. FINDINGS: SEGMENTATION: The lowest fully formed intervertebral disc level is labeled L5-S1. ALIGNMENT: Variable minimal to mild stair step retrolisthesis spanning T12 on L1 through L3 on L4 in advance of variable grade 1 stair step anterolisthesis L4 on L5 and L5 on S1 (greater L4 on L5). VERTEBRAE: No MR evidence of acute-subacute fracture. Multilevel variable minimal to mild anterior degenerative wedging of the lower thoracic through upper lumbar spine. Spondylosis. Scattered tiny hemangiomas and/or patchy fatty marrow replacement about the osseous architecture. DISC HEIGHT: Multilevel variable vacuum disc phenomenon, intervertebral disc desiccation, and loss of intervertebral disc height of the lower thoracic through lumbar spine. HARDWARE: None in the lumbar spine. CORD/CAUDA: Normal in size and signal intensity with conus medullaris termination at L2. LOWER THORACIC: Incompletely imaged. No stenosis demonstrated. INDIVIDUAL DISC LEVELS: T11-12: Mild annular disc bulge with left subarticular-foraminal disc protrusion. Bilateral facet arthropathy. Ligamentum flavum thickening. No spinal canal stenosis. No neural foraminal stenosis. T12-L1: Slightly overhanging posterior cortical margin with annular disc bulge. Bilateral hypertrophic facet arthropathy. Mild ligamentum flavum thickening. No spinal canal stenosis. No neural foraminal stenosis L1-2: Slightly overhanging posterior cortical margin with right eccentric posterior osteophytosis and annular disc bulge. Bilateral hypertrophic facet arthropathy. No spinal canal stenosis. Mild bilateral neural foraminal stenosis. L2-3: Slightly overhanging posterior cortical margin with annular disc bulge. Bilateral hypertrophic facet arthropathy. Slight compromise of the left lateral recess. No spinal canal stenosis. Mild bilateral neural foraminal stenosis. L3-4: Slightly overhanging posterior cortical margin with annular disc bulge. Bilateral hypertrophic facet arthropathy. Ligamentum flavum thickening. Mild spinal canal stenosis. Mild bilateral neural foraminal stenosis. L4-5: Uncovering of the intervertebral disc with annular disc bulge and right subarticular-foraminal disc protrusion. Marked bilateral hypertrophic facet arthropathy. Ligamentum flavum thickening. Compromise of the bilateral lateral recesses, noting combination of disc and arthropathic facet variable contact with descending bilateral L5 nerve roots. Severe spinal canal stenosis. Moderate proximal right and mild left neural foraminal stenosis. L5-S1: Slight uncovering of the intervertebral disc with annular disc bulge. Bilateral hypertrophic facet arthropathy. Compromise of the left lateral recess. No spinal canal stenosis. Marked anterior bilateral neural foraminal stenosis, noting combination of inferior pedicular surface and posterior cortical margin/disc variable contact with exiting bilateral L5 nerve roots. SACRUM: Visualized upper sacrum intact. Right S2 sacral Tarlov cysts. Multilevel variable thoracic perineural sleeve cysts. VISUALIZED UPPER ABDOMEN: Within the limitations of motion artifact, no overt evidence of acute abnormality. OTHER: Sarcopenia manifested as variably robust fatty atrophy of the visualized musculature. THIS IS AN ELECTRONICALLY VERIFIED FINAL REPORT 05/26/2025 11:10 AM - Electronically signed by Jude Acosta M.D. JOHNATHAN: JOHNATHAN Report ID: [id number] Reading Location: [place] [id number] Procedure Note Jude Acosta MD - 05/26/2025 EXAM DESCRIPTION: MRI LUMBAR SPINE WITHOUT CONTRAST REASON FOR STUDY: Chronic low back pain. No provided history of radiculopathy. No provided history of trauma or inciting and/or aggravating events. No cancer history. No intracranial, vascular, or spinal surgeries. TECHNIQUE: Sagittal and axial imaging of the lumbar spine includes T1, T2, STIR sequences. Images saved to PACS. COMPARISON: Relevant portions of CT chest 12/12/2024; DEXA scan 05/01/2024: Reported as osteoporosis; relevant portions of abdominal with chest radiographic series 01/28/2022. FINDINGS: SEGMENTATION: The lowest fully formed intervertebral disc level is labeled L5-S1. ALIGNMENT: Variable minimal to mild stair step retrolisthesis spanning T12 on L1 through L3 on L4 in advance of variable grade 1 stair step anterolisthesis L4 on L5 and L5 on S1 (greater L4 on L5). VERTEBRAE: No MR evidence of acute-subacute fracture. Multilevel variable minimal to mild anterior degenerative wedging of the lower thoracic through upper lumbar spine. Spondylosis. Scattered tiny hemangiomas and/or patchy fatty marrow replacement about the osseous architecture. DISC HEIGHT: Multilevel variable vacuum disc phenomenon, intervertebral disc desiccation, and loss of intervertebral disc height of the lower thoracic through lumbar spine. HARDWARE: None in the lumbar spine. CORD/CAUDA: Normal in size and signal intensity with conus medullaris termination at L2. LOWER THORACIC: Incompletely imaged. No stenosis demonstrated. INDIVIDUAL DISC LEVELS: T11-12: Mild annular disc bulge with left subarticular-foraminal disc protrusion. Bilateral facet arthropathy. Ligamentum flavum thickening. No spinal canal stenosis. No neural foraminal stenosis. T12-L1: Slightly overhanging posterior cortical margin with annular disc bulge. Bilateral hypertrophic facet arthropathy. Mild ligamentum flavum thickening. No spinal canal stenosis. No neural foraminal stenosis L1-2: Slightly overhanging posterior cortical margin with right eccentric posterior osteophytosis and annular disc bulge. Bilateral hypertrophic facet arthropathy. No spinal canal stenosis. Mild bilateral neural foraminal stenosis. L2-3: Slightly overhanging posterior cortical margin with annular disc bulge. Bilateral hypertrophic facet arthropathy. Slight compromise of the left lateral recess. No spinal canal stenosis. Mild bilateral neural foraminal stenosis. L3-4: Slightly overhanging posterior cortical margin with annular disc bulge. Bilateral hypertrophic facet arthropathy. Ligamentum flavum thickening. Mild spinal canal stenosis. Mild bilateral neural foraminal stenosis. L4-5: Uncovering of the intervertebral disc with annular disc bulge and right subarticular-foraminal disc protrusion. Marked bilateral hypertrophic facet arthropathy. Ligamentum flavum thickening. Compromise of the bilateral lateral recesses, noting combination of disc and arthropathic facet variable contact with descending bilateral L5 nerve roots. Severe spinal canal stenosis. Moderate proximal right and mild left neural foraminal stenosis. L5-S1: Slight uncovering of the intervertebral disc with annular disc bulge. Bilateral hypertrophic facet arthropathy. Compromise of the left lateral recess. No spinal canal stenosis. Marked anterior bilateral neural foraminal stenosis, noting combination of inferior pedicular surface and posterior cortical margin/disc variable contact with exiting bilateral L5 nerve roots. SACRUM: Visualized upper sacrum intact. Right S2 sacral Tarlov cysts. Multilevel variable thoracic perineural sleeve cysts. VISUALIZED UPPER ABDOMEN: Within the limitations of motion artifact, no overt evidence of acute abnormality. OTHER: Sarcopenia manifested as variably robust fatty atrophy of the visualized musculature. THIS IS AN ELECTRONICALLY VERIFIED FINAL REPORT 05/26/2025 11:10 AM - Electronically signed by Jude Acosta M.D. JOHNATHAN: JOHNATHAN Report ID: [id number] Reading Location: [id number] IMPRESSION: Constellation of spondylolisthesis, spondylosis, and degenerative disc disease of the lumbar spine as detailed level by level above. us Mehran Bloom MD IMG MR ORDERABLES Final Res ult * NEUROLOGY CONSULT (04/25/2025 12:00 AM CDT) 04/25/2025 us Provider Scan GENERIC SCAN ORDERS CONSULT Celeste l Result Performing Organization Address [facility] de Phone Number SCAN * OPHTHALMOLOGY CONSULT (04/09/2025 12:00 AM CDT) 04/09/2025 us Provider Scan GENERIC SCAN ORDERS CONSULT Celeste l Result Performing Organization Address [facility] Co de Phone Number SCAN * ELISSA BONE DENSITOMETRY AXIAL SKELETON (05/01/2024 1:49 PM CDT) Anatomical Region Laterality Modality BODY N/A Computed Radiogr aphy 05/01/2024 8:30 PM CDT Impressions 05/01/2024 8:32 PM CDT IMPRESSION: Osteoporosis. REFERENCE: Bone mineral density: T-Score: Normal (T-score above or = -1.0) Low bone mass (T-score between -1.0 and -2.5) replaces the previously used term osteopenia Osteoporosis (T-score = or below -2.5) Z-Score: Within the expected range for age (Z-score above -2.0) Below the expected range for age (Z-score is -2.0 or below) Please see below follow up recommendations. Medical evaluation for secondary causes of low bone mineral density may be appropriate. FRAX is a World Health Organization validated fracture risk assessment tool that calculates a person's 10 year probability of a major osteoporosis related fracture and hip fracture. According to the National Osteoporosis Foundation guidelines, postmenopausal women and men age 50 or older with low bone mass and a 10 year probability of a major osteoporosis related fracture = or greater than 20% or a 10 year probability of a hip fracture = or greater than 3% should be considered for pharmacological treatment for the prevention of osteoporosis. For further information, including treatment recommendations, please refer to the 2019 ISCD Official Positions (http://www.iscd.org) and the NOF's Clinician's Guide to Prevention and Treatment of Osteoporosis (http://www.nof.org/professionals/clinical-guidelines) Narrative 05/01/2024 8:32 PM CDT EXAM DESCRIPTION: ELISSA BONE DENSITOMETRY AXIAL SKELETON REASON FOR STUDY: 83 y/o year old F with given history of: Asymptomatic menopausal state Geometrician/Model: [employer] (S/N [id number]) CLINICAL INFORMATION: Current height: 64 inches Maximum height: 64 inches Weight: 153 pounds Risk factors: Adult fracture COMPARISON: 07/29/2021 FINDINGS: AP LUMBAR SPINE L1-L4: Total BMD is 1.130 g/cm2 T-score is -0.5 This is increased in comparison to prior exam which is statistically significant. LEFT HIP: Total BMD is 0.701 g/cm2 T-score is -2.4 This is decrease in comparison to prior exam which is not statistically significant. Femoral neck BMD is 0.684 g/cm2 T-score is -2.5 FRAX: FRAX not reported due to T-scores of hip, femoral neck and/or spine being at or below -2.5 (Osteoporosis). THIS IS AN ELECTRONICALLY VERIFIED FINAL REPORT 05/01/2024 8:30 PM - Electronically signed by Samy Buitrago M.D. MF: [email or web address] Report ID: [id number] Reading Location: [id number] Procedure Note Samy Buitrago MD - 05/01/2024 EXAM DESCRIPTION: ELISSA BONE DENSITOMETRY AXIAL SKELETON REASON FOR STUDY: 83 y/o year old F with given history of: Asymptomatic menopausal state Geometrician/Model: [employer] (S/N [id number]) CLINICAL INFORMATION: Current height: 64 inches Maximum height: 64 inches Weight: 153 pounds Risk factors: Adult fracture COMPARISON: 07/29/2021 FINDINGS: AP LUMBAR SPINE L1-L4: Total BMD is 1.130 g/cm2 T-score is -0.5 This is increased in comparison to prior exam which is statistically significant. LEFT HIP: Total BMD is 0.701 g/cm2 T-score is -2.4 This is decrease in comparison to prior exam which is not statistically significant. Femoral neck BMD is 0.684 g/cm2 T-score is -2.5 FRAX: FRAX not reported due to T-scores of hip, femoral neck and/or spine being at or below -2.5 (Osteoporosis). THIS IS AN ELECTRONICALLY VERIFIED FINAL REPORT 05/01/2024 8:30 PM - Electronically signed by Samy Buitrago M.D. MF: [email or web address] Report ID: [id number] Reading Location: [place] [address] IMPRESSION: Osteoporosis. REFERENCE: Bone mineral density: T-Score: Normal (T-score above or = -1.0) Low bone mass (T-score between -1.0 and -2.5) replaces the previously used term osteopenia Osteoporosis (T-score = or below -2.5) Z-Score: Within the expected range for age (Z-score above -2.0) Below the expected range for age (Z-score is -2.0 or below) Please see below follow up recommendations. Medical evaluation for secondary causes of low bone mineral density may be appropriate. FRAX is a World Health Organization validated fracture risk assessment tool that calculates a person's 10 year probability of a major osteoporosis related fracture and hip fracture. According to the National Osteoporosis Foundation guidelines, postmenopausal women and men age 50 or older with low bone mass and a 10 year probability of a major osteoporosis related fracture = or greater than 20% or a 10 year probability of a hip fracture = or greater than 3% should be considered for pharmacological treatment for the prevention of osteoporosis. For further information, including treatment recommendations, please refer to the 2019 ISCD Official Positions (http://www.iscd.org) and the NOF's Clinician's Guide to Prevention and Treatment of Osteoporosis (http://www.nof.org/professionals/clinical-guidelines) Mehran Bloom MD IMG DEXA ORDERABLES Final R esult from Last 3 Months or Most Recently Relevant to Health Maintenance Insurance MEDICARE [facility] Advance Directives * Full Code (Latest Code Status on File) Date Activated Date Inactivated Comments 05/31/2016 8:59 AM 06/02/2016 3:06 PM CPR-Full Ariel atment: FULL ARREST: Attempt Resuscitation/CPR wit intubation and mechanical ventilation. PRE-ARREST: Use entire range of life support measures to stabilize the patient. Care Teams Athletic Monitor Relationship Specialty Start Date End Date Mehran Bloom MD PCP - General Internal Medicine 09/24/15 Salvador Harmon MD [address] [place] [address] Consulting Physician Pulmonary Disease 01/14/25 Reji Donald MD [address] [place] [address] Consulting Physician Neurology 04/24/25
--- OUTSIDE RECORDS SUMMARY | 2025-07-03 12:01 | XMS_ITS | Encounter Summary ---
Author Organization [facility] Address [address] [place] [address] Phone Care Team Providers Care Securities Underwriter Name Role Phone Mehran Bloom MD Primary Care Provider [phone] Salvador Harmon MD Unavailable Reji Donald MD Unavailable [phone] Reason for Visit * Reason Comments Medication Refill Encounter Details Date Type Department Care Team (Late st Contact Info) Description 02/24/[address] [facility] Medical Group - Internal Medicine - [place] [address] [place] [address] Jane Holliday, [facility] [address] [place] [address] Medication Refill Social History Tobacco Use Types Packs/Day Years Used Date Smoking Tobacco: Never Smokeless Tobacco: Never Alcohol Use Standard Drinks/Week Comments Yes 0 (1 standard drink = 0.6 oz pur e alcohol) glass of wine rarely PHQ-2 Answer Date Recorded Total Score - Questions 1-9 0 11/13 Comments No Sex and Gender Information Value Date Recorded Sex Assigned at Not on file Legal Sex Female 12:25 AM CDT Gender Identity Not on file Sexual Orientation Not on file Occupation Industry Job Start Date Job End Date cook Not on file Not on file Not on file documented as of this encounter Miscellaneous Notes * Telephone Encounter - Elisabeth Novak RN - 02/25/2021 12:45 PM CDT Please review and sign. documented in this encounter Plan of Treatment Upcoming Encounters Date Type Department Care Team (Late st Contact Info) Description 08/25/2025 10:00 AM CDT Office Visit [facility] - Primary Care - [place] [address] [place] [address] Mehran Bloom MD [address] [place] [address] 10/30/2025 10:00 AM CRM SPECIALIST Office Visit [facility] - Pulmonology & Sleep Medicine [facility] [address] [place] [address] Salvador Harmon MD [address] [place] [address] documented as of this encounter Visit Diagnoses Not on filedocumented in this encounter Additional Health Concerns Assessment Noted Time PHQ-9 Depression Total Score: 0 11/24/19 21 3:00 PM CRM SPECIALIST documented as of this encounter Care Teams Securities Underwriter Relationship Specialty Start Date End Date Mehran Bloom MD PCP - General Internal Medicine 09/24/15 Salvador Harmon MD [address] [place] [address] Consulting Physician Pulmonary Disease 01/14/25 Reji Donald MD [address] [place] [address] Consulting Physician Neurology 04/24/25 documented as of this encounter
--- OUTSIDE RECORDS SUMMARY | 2025-07-03 12:01 | XMS_ITS | Clinical Summary ---
Author Organization [facility] Building [facility] Address [address] [place] [address] Care Team Providers Care Branch Store Manager Name Role Phone Mehran Bloom MD Primary Care Provider [phone] Allergies No known active allergies Medications aspirin 81 mg tablet take 1 tablet by oral route every day 0 0 5 Active ascorbic acid,vitamin C,,bulk, 100 % powder Take 1 tablet by mouth daily Active docusate sodium (COLACE) 100 mg capsuleIndicat ions:constipat ion Take 1 capsule (100 mg total) by mouth every 12 (twelve) hours 60 capsule 1 Active Additional Information Patient not taking.Reported on 11/26/2021 losartan potassium (LOSARTAN ORAL) Take by mouth Active atorvastatin (LIPITOR) 80 mg tablet TAKE ONE-HALF TABLET BY MOUTH EVERY EVENING 1 Active HYDROcodone-ac etaminophen (NORCO) 5-325 mg per tablet Take 1 tablet by mouth every 4 (four) hours as needed 1 Active carvediloL (COREG) 25 mg tablet Take 25 mg by mouth 2 (two) times a day with meals Active predniSONE (DELTASONE) 10 mg tablet [address] (PROTONIX) 40 mg EC tablet Take 40 mg by mouth daily 1 Active metroNIDAZOLE (Nuvessa) 1.3 % (65 mg/5 gram) gelIndications :Bacterial Vaginosis Insert 1 applicatorful into vagina one time. 5 g 2 Active Active Problems Problem Noted Date Diagnosed Date Vaginal bleeding 12/17/2014 Overview (02/17/2017): Vaginal bleeding Gastroesophageal reflux disease 04/01/2014 Overview (02/17/2017): GERD Hypertension 03/29/2014 Overview (02/16/2017): Hypertension Hypercholesterolemia 03/29/2014 Overview (02/17/2017): Hypercholesteremia Surgical History Surgery Date Site/Laterality Comments OTHER SURGICAL HISTORY Cholecystitis: Cholecystectomy OTHER SURGICAL HISTORY heart attack: stent placement OTHER SURGICAL HISTORY 11/13/1969 - 11/12/1970 : vaginal forceps OTHER SURGICAL HISTORY 11/13/1970 - 11/12/1971 : vaginal forceps OTHER SURGICAL HISTORY Size 4 cube pessary CHOLECYSTECTOMY APPENDECTOMY CARDIAC STENT PLACEMENT Medical History Medical History Date Comments Hx Other Medical Cholecystitis Hx Other Medical heart attack Hx Other Medical 1969 ; Outc ome: 40 week 7 lb(s) 14 oz Male Hx Other Medical 1970 ; Outc ome: 40 week 6 lb(s) 12 oz Female Abnormal Pap smear of cervix STI (sexually transmitted infection) Hypertension Osteoporosis Myocardial infarction (HCC) Hypercholesteremia Depression Family History Medical History Relation Name Comments Heart attack Father Myocardial infa rction; Cause of : Myocardial infarction Arthritis Other Bleeding Disorder Other Heart disease Other Hypertension Other Relation Name Status Comments Father Other Social History Tobacco Use Types Packs/Day Years Used Date Smoking Tobacco: Never Smokeless Tobacco: Never Alcohol Use Standard Drinks/Week Comments No 0 (1 standard drink = 0.6 oz pur e alcohol) Comments No Sex and Gender Information Value Date Recorded Sex Assigned at Not on file Legal Sex Female 8:44 AM SENIOR CATERING SALES MANAGER Gender Identity Not on file Sexual Orientation Not on file Obstetrics History Para Term AB IAB SAB Ectopic Multiple Livin g Live Births 2 2 2 2 2 Date Outcome GA Total Labor Labor/2nd/3rd Weight Sex Type Anes PTL Omaira A1 A5 Name Clin 1970 Term Vag-S pont Living 1970 Term Vag-S pont Living Last Filed Vital Signs Vital Sign Reading Time Taken Comments Blood Pressure 138/86 07/25/2022 2:00 PM CDT Pulse 107 11/26/2021 9:38 AM SENIOR CATERING SALES MANAGER Temperature 36.8 C (98.3 F) 11/26/2021 9:38 AM SENIOR CATERING SALES MANAGER Respiratory Rate 20 11/26/2021 9:38 AM SENIOR CATERING SALES MANAGER Oxygen Saturation 98% 11/26/2021 9:38 AM SENIOR CATERING SALES MANAGER Inhaled Oxygen Concentration - - Weight 67.1 kg (148 lb) 07/25/2022 2:00 PM CDT Height 162.6 cm (5' 4) 07/25/2022 2:00 PM CDT Body Mass Index 25.4 07/25/2022 2:00 PM CDT Plan of Treatment Health Maintenance Due Date Last Done Comments Depression Screening 1941 Fall Risk Assessment 1941 DTaP/Tdap/Td Vaccine (1 - Tdap) 1952 Hepatitis B Screening 1959 Zoster Vaccine (1 of 2) 1991 Well Visit 65+ 2006 Osteoporosis Screening-Bone Density Scan 08/11/2019 08/11/2017, 08/10/2017 Covid-19 Vaccine (2023-2 5 season) 2024 07/07/2021, 06/09/2021 Influenza Vaccine (#1) 2025 2, 09/24/2021, 08/12/2020, Additional history exists Pneumococcal vaccine 65+ Completed 016, 06/01/2016, 06/13/2014 Procedures Procedure Name Priority Date/Time Associated Diagnosis Comments DEXA AXIAL SKELETON BONE DENSITY 1 OR MORE SITES Schedule Routine, Read Routine (OP Routine) 08/11/2017 from Last 3 Months or Most Recently Relevant to Health Maintenance Results * Dexa Axial Skeleton Bone Density 1 or 2 Site (08/11/2017) Anatomical Region Laterality Modality Body N/A Radiographic Miriam ging Jenn Kamara NP IMG DXA PROCEDURES Final Result from Last 3 Months or Most Recently Relevant to Health Maintenance Insurance MEDICARE [facility] SUPPLEMENT RADHA BERNAL [id number] MEDICARE [facility] SUPPLEMENT RADHA BERNAL [id number] Care Teams Branch Store Manager Relationship Specialty Start Date End Date Mehran Bloom MD [facility] [address] [facility] - General 08/17/11
--- OUTSIDE RECORDS SUMMARY | 2025-07-03 12:01 | XMS_ITS ---
Author Organization [facility] Address [address] [place] [address] Phone Care Team Providers Care Radiology Technologist Name Role Phone Mehran Bloom MD Primary Care Provider [phone] Salvador Harmon MD Unavailable Reji Donald MD Unavailable [phone] [facility] Chronic Care Management Status:Identified (Enrolling) Start date:06/25/2025 Enrollment reason:Identified using claims or encounter data Related social drivers of health:Intimate Partner Violence, Social Connections, Alcohol Use, Tobacco Use, Financial Resource Strain,Depression, Stress, Physical Activity, Food Insecurity, Transportation Needs, Housing Stability, Utilities Continued Care and Services Coordination
--- OUTSIDE RECORDS SUMMARY | 2025-07-03 12:01 | XMS_ITS | Encounter Summary ---
Author Organization [facility] Address [address] [place] [address] Phone Care Team Providers Care Home Health Nurse Licensed Practical Name Role Phone Mehran Bloom MD Primary Care Provider [phone]- [phone] Salvador Harmon MD Unavailable Reji Donald MD Unavailable [phone] Reason for Visit * Reason Comments Medication Refill Encounter Details Date Type Department Care Team (Late st Contact Info) Description 02/27/2021 Refill [facility] Medical Group - Internal Medicine [facility] [address] [place] [address] Mehran Bloom MD [address] [place] [address] Medication Refill Social History Tobacco Use Types [...] Telephone Encounter - Elisabeth Novak RN - 03/01/2021 7:56 AM CDT Please review and sign. documented in this encounter Plan of Treatment Upcoming Encounters Date Type Department Care Team (Late st Contact Info) Description 08/25/2025 10:00 AM CDT [facility] [place] [address] [place] [address] Mehran Bloom MD [address] [place] [address] 10/30/2025 10:00 AM DECK SPECIALIST [facility] - Pulmonology & Sleep Medicine [facility] [address] [place] [address] Salvador Harmon MD [address] [place] [address] documented as of this encounter Visit Diagnoses Not on filedocumented in this encounter Additional Health Concerns Assessment Noted Time PHQ-9 Depression Total Score: 0 11/24/19 21 3:00 PM DECK SPECIALIST documented as of this encounter Care Teams Home Health Nurse Licensed Practical Relationship Specialty Start Date End Date Mehran Bloom MD PCP - General Internal Medicine 09/24/15 Salvador Harmon MD [address] [place] [address] Consulting Physician Pulmonary Disease 01/14/25 Reji Donald MD [address] [place] [address] Consulting Physician Neurology 04/24/25 documented as of this encounter
--- OUTSIDE RECORDS SUMMARY | 2025-07-03 12:01 | XMS_ITS | Encounter Summary ---
Author Organization [facility] Address [address] [place] [address] Phone Care Team Providers Care Activity Director Name Role Phone Mehran Bloom MD Primary Care Provider [phone] Salvador Harmon MD Unavailable Reji Donald MD Unavailable [phone] Reason for Visit * Reason Onset Date Comments Appointment 07/03/2025 Encounter Details Date Type Department Care Team (Late st Contact Info) Description 07/03/2025 Nurse Triage [facility] [address] [place] [address] Mehran Bloom MD [address] [place] [address] Appointment Social History Tobacco Use Types Packs/Day Years Used Date Smoking Tobacco: Never Passive Smoke Exposure: Never Smokeless Tobacco: Never Alcohol Use Standard Drinks/Week Comments Not Currently 0 (1 standard drink = 0.6 oz pur e alcohol) glass of wine rarely [facility] Utilities Answer Date Recorded In the past 12 months has [employer] electric, gas, oil, or water company threatened [...] week 02/08/2024 How often do you attend [facility] or buddhism services? More than 4 times per year 02/08/2024 Do you belong to any clubs o r organizations such as oriental orthodox groups, unions, fraternal or athletic groups, or [...] Total Score - Questions 1-9 0 07/2025 [facility] - Occupational Stress [...] place to sleep or slept in a snf (including now)? No 02/08/2024 Sexually Active Control [...] encounter Miscellaneous Notes * Telephone Encounter - Irina Thakur RN - 07/03/2025 10:12 AM CDT SITUATION: 84 y.o. with urinary frequency BACKGROUND: Patient contacting PCP office. History of bladder tie up ASSESSMENT: Symptom Description / Location: Patient reporting urinary frequency and discomfort when sitting Patient states symptoms have been going on for a couple of weeks, but has recently gotten worse Patient reports feeling hot flashes every now and then Patient reports no flank pain and no odor Caller denies pain. Denies fever. RECOMMENDATION: Caller agreeable to highest disposition listed: See in Office or Video Visit Today. Care advice provided per triage guideline. Caller verbalized understanding. Due to office unavailability within disposition, advised for patient to be seen at prompt care or urgent care. Caller agreeable to prompt care/urgent care. - Reason for Disposition: Urinating more frequently than usual (i.e., frequency) OR new-onset of the feeling of an urgent need to urinate (i.e., urgency) . Protocols Used: Urinary Latkayrt-S-TD See care advice and disposition for Guideline. First positive answer recorded, all responses to prior questions were negative. If symptoms increase, change or if new symptoms develop, call your health care provider or call back. Recommendations were based on caller information and is not a diagnosis. Verified and reviewed all triage information with caller. * Telephone Encounter - Oumou Ornelas - 07/03/2025 10:10 AM CDT Symptoms: Urine Symptoms, Urination Pain Outcome: Transfer to professional engineer queue Reason: This is the only possible outcome for these symptoms The caller accepted this outcome. documented in this encounter Plan of Treatment Upcoming Encounters Date Type Department Care Team (Late st Contact Info) Description 08/25/2025 10:00 AM CDT Office Visit [facility] - Primary Care - [place] [address] [place] [address] Mehran Bloom MD [address] [place] [address] 10/30/2025 10:00 AM HEEL BRUSHER Office Visit [facility] - Pulmonology & Sleep Medicine - [place] [address] [place] [address] Salvador Harmon MD [address] [place] [address] documented as of this encounter Visit Diagnoses Not on filedocumented in this encounter Additional Health Concerns Assessment Noted Time PHQ-9 Depression Total Score: 0 11/21/19 25 10:00 AM HEEL BRUSHER documented as of this encounter Care Teams Activity Director Relationship Specialty Start Date End Date Mehran Bloom MD PCP - General Internal Medicine 09/24/15 Salvador Harmon MD [address] [place] [address] Consulting Physician Pulmonary Disease 01/14/25 Reji Donald MD [address] [place] [address] Consulting Physician Neurology 04/24/25 documented as of this encounter
--- OUTSIDE RECORDS SUMMARY | 2025-07-03 12:01 | XMS_ITS | Encounter Summary ---
Author Organization [facility] Address [address] [place] [address] Phone Care Team Providers Care Landmen Name Role Phone Mehran Bloom MD Primary Care Provider [phone]- [phone] Salvador Harmon MD Unavailable Reji Donald MD Unavailable [phone] Reason for Visit * Reason Comments Medication Refill Encounter Details Date Type Department Care Team (Late st Contact Info) Description 02/11/2021 Refill [facility] Medical Group - Internal Medicine [facility] [address] [place] [address] Mehran Bloom MD [address] [place] [address] Medication Refill Social History Tobacco Use Types [...] Telephone Encounter - Elisabeth Novak RN - 02/11/2021 10:43 AM CDT Please review and sign. documented in this encounter Plan of Treatment Upcoming Encounters Date Type Department Care Team (Late st Contact Info) Description 08/25/2025 10:00 AM CDT [facility] [place] [address] [place] [address] Mehran Bloom MD [address] [place] [address] 10/30/2025 10:00 AM CARE ADVOCATE [facility] - Pulmonology & Sleep Medicine [facility] [address] [place] [address] Salvador Harmon MD [address] [place] [address] documented as of this encounter Visit Diagnoses Not on filedocumented in this encounter Additional Health Concerns Assessment Noted Time PHQ-9 Depression Total Score: 0 11/24/19 21 3:00 PM CARE ADVOCATE documented as of this encounter Care Teams Landmen Relationship Specialty Start Date End Date Mehran Bloom MD PCP - General Internal Medicine 09/24/15 Salvador Harmon MD [address] [place] [address] Consulting Physician Pulmonary Disease 01/14/25 Reji Donald MD [address] [place] [address] Consulting Physician Neurology 04/24/25 documented as of this encounter
--- OUTSIDE RECORDS SUMMARY | 2025-07-03 12:01 | XMS_ITS | Encounter Summary ---
Author Organization [facility] Address [address] [place] [address] Phone Care Team Providers Care University Administrative Assistant Name Role Phone Mehran Bloom MD Primary Care Provider [phone]- [phone] Salvador Harmon MD Unavailable Reji Donald MD Unavailable [phone] Reason for Visit * Reason Comments Medication Refill Encounter Details Date Type Department Care Team (Late st Contact Info) Description 01/11/2024 Refill [facility] Medical Group - Internal Medicine - [place] [address] [place] [address] Mehran Bloom MD [address] [place] [address] Medication Refill Social History Tobacco Use Types Packs/Day Years Used Date Smoking Tobacco: Never Passive Smoke Exposure: Never Smokeless Tobacco: Never Alcohol Use Standard Drinks/Week Comments Not Currently 0 (1 standard drink = 0.6 oz pur e alcohol) glass of wine rarely PHQ-2 Answer Date Recorded Total Score - Questions 1-9 1 06/14 Sexually Active Control Partners Comments Not Currently [...] Telephone Encounter - Jammie Cedeño RN - 01/11/2024 11:30 AM CST Medication(s) refilled and signed per [facility] Medication Refill Standing Order for Pediatricand Adult Patients. Requested Prescriptions Pending Prescriptions Disp Refills pantoprazole (PROTONIX) 40 MG Tablet Delayed Response [Pharmacy Med Name: PANTOPRAZOLE SODIUM 40MG TABLET DR] 90 Tablet 0 Sig: TAKE ONE TABLET BY MOUTH EVERY DAY Proton Pump Inhibitors Protocol Passed - 01/11/2024 11:16 AM Passed - Visit with relevant provider in past 12 months or upcoming 90 days Recent Visits Date Type Provider Dept 08/14/23 Telemedicine Mehran Bloom MD [facility] [place] 08/07/23 Office Visit Mehran Bloom MD [facility] [place] 05/04/23 Office Visit Mehran Bloom MD [facility] [place] 03/30/23 Office Visit Mehran Bloom MD [facility] [place] 03/17/23 Office Visit Jane Holliday PAC [facility] [place] Showing recent visits within past 365 days and meeting all other requirements Future Appointments Date Type Provider Dept 02/08/24 Appointment Mehran Bloom MD [facility] [place] Showing future appointments within next 90 days and meeting all other requirements ECTIONAL CASE MANAGER documented in this encounter Plan of Treatment Upcoming Encounters Date Type Department Care Team (Late st Contact Info) Description 08/25/2025 10:00 AM CDT Office Visit [facility] - Primary Care - [place] [address] [place] [address] Mehran Bloom MD [address] [place] [address] 10/30/2025 10:00 AM CORRECTIONAL CASE MANAGER Office Visit [facility] - Pulmonology & Sleep Medicine [facility] [address] [place] [address] Salvador Harmon MD [address] [facility] [place] [address] documented as of this encounter Visit Diagnoses Not on filedocumented in this encounter Additional Health Concerns Assessment Noted Time PHQ-9 Depression Total Score: 1 07/02/20 21 9:00 AM CDT documented as of this encounter Care Teams University Administrative Assistant Relationship Specialty Start Date End Date Mehran Bloom MD PCP - General Internal Medicine 09/24/15 Salvador Harmon MD [address] [place] [address] Consulting Physician Pulmonary Disease 01/14/25 Reji Donald MD [address] [place] [address] Consulting Physician Neurology 04/24/25 documented as of this encounter
--- OUTSIDE RECORDS SUMMARY | 2025-07-03 12:01 | XMS_ITS | Encounter Summary ---
Author Organization [facility] Address [address] [place] [address] Phone Care Team Providers Care Scrubber Machine Tender Name Role Phone Mehran Bloom MD Primary Care Provider [phone] Salvador Harmon MD Unavailable Reji Donald MD Unavailable [phone] Reason for Visit * Reason Comments Medication Refill Encounter Details Date Type Department Care Team (Late st Contact Info) Description 09/21/2021 Refill [facility] Medical Group - Internal Medicine - [place] [address] [place] [address] Mehran Bloom MD [address] [place] [address] Medication Refill Social History Tobacco Use Types Packs/Day Years Used Date Smoking Tobacco: Never Smokeless Tobacco: Never Alcohol Use Standard Drinks/Week Comments Not Currently 0 (1 standard drink = 0.6 oz pur e alcohol) glass of wine rarely PHQ-2 Answer Date Recorded Total Score - Questions 1-9 1 06/14 Comments No Sex and Gender Information Value Date Recorded Sex Assigned at Not on file Legal Sex Female 12:25 AM CDT Gender Identity Not on file Sexual Orientation Not on file Occupation Industry Job Start Date Job End Date cook Not on file Not on file Not on file COVID-19 Exposure Response Date Recorded In the last month, have you been in contact with someone who was confirmed or suspected to have Coronavirus / COVID-19? No / Unsure 09/24/2021 3:21 PM DISTRIBUTING CLERK documented as of this encounter Plan of Treatment Upcoming Encounters Date Type Department Care Team (Late st Contact Info) Description 08/25/2025 10:00 AM CDT [facility] - Primary Care - [place] [address] [place] [address] Mehran Bloom MD [address] [place] [address] 10/30/2025 10:00 AM DISTRIBUTING CLERK [facility] - Pulmonology & Sleep Medicine [facility] [address] [place] [address] Salvador Harmon MD [address] [place] [address] documented as of this encounter Visit Diagnoses Not on filedocumented in this encounter Additional Health Concerns Assessment Noted Time PHQ-9 Depression Total Score: 1 07/02/20 21 9:00 AM CDT documented as of this encounter Care Teams Scrubber Machine Tender Relationship Specialty Start Date End Date Mehran Bloom MD PCP - General Internal Medicine 09/24/15 Salvador Harmon MD [address] [place] [address] Consulting Physician Pulmonary Disease 01/14/25 Reji Donald MD [address] [place] [address] Consulting Physician Neurology 04/24/25 documented as of this encounter
--- OUTSIDE RECORDS SUMMARY | 2025-07-03 12:01 | XMS_ITS | Encounter Summary ---
Author Organization [facility] Address [address] [place] [address] Phone Care Team Providers Care Upholstery Auto Trimmer Name Role Phone Mehran Bloom MD Primary Care Provider [phone]- [phone] Salvador Harmon MD Unavailable Reji Donald MD Unavailable [phone] Reason for Visit * Reason Comments Medication Refill Encounter Details Date Type Department Care Team (Late st Contact Info) Description 03/30/2021 Refill [facility] - Internal Medicine [facility] [address] [place] [address] Mehran Bloom MD [address] [place] [address] Medication Refill Social History Tobacco Use Types [...] Telephone Encounter - Elisabeth Novak RN - 03/30/2021 1:45 PM CDT Please review and sign. documented in this encounter Plan of Treatment Upcoming Encounters Date Type Department Care Team (Late st Contact Info) Description 08/25/2025 10:00 AM CDT Office Visit [facility] - Primary Care - [place] [address] [place] [address] Mehran Bloom MD [address] [place] [address] 10/30/2025 10:00 AM SPEECH LANGUAGE ASSISTANT Office Visit [facility] - Pulmonology & Sleep Medicine [facility] [address] [place] [address] Salvador Harmon MD [address] [place] [address] documented as of this encounter Visit Diagnoses Not on filedocumented in this encounter Additional Health Concerns Assessment Noted Time PHQ-9 Depression Total Score: 0 11/24/19 21 3:00 PM SPEECH LANGUAGE ASSISTANT documented as of this encounter Care Teams Upholstery Auto Trimmer Relationship Specialty Start Date End Date Mehran Bloom MD PCP - General Internal Medicine 09/24/15 Salvador Harmon MD [address] [place] [address] Consulting Physician Pulmonary Disease 01/14/25 Reji Donald MD [address] [place] [address] Consulting Physician Neurology 04/24/25 documented as of this encounter
--- OUTSIDE RECORDS SUMMARY | 2025-07-03 12:01 | XMS_ITS | Encounter Summary ---
Author Organization [facility] Address [address] [place] [address] Phone Care Team Providers Care Ammonia Solution Preparer Name Role Phone Mehran Bloom MD Primary Care Provider [phone]- [phone] Salvador Harmon MD Unavailable Reji Donald MD Unavailable [phone] Reason for Visit * Reason Comments Medication Refill Encounter Details Date Type Department Care Team (Late st Contact Info) Description 04/12/2022 [facility]ill [facility] - Internal Medicine - [place] [address] [place] [address] Mehran Bloom MD [address] [place] [address] Medication Refill Social History Tobacco Use Types Packs/Day Years Used Date Smoking Tobacco: Never Smokeless Tobacco: Never Alcohol Use Standard Drinks/Week Comments Not Currently 0 (1 standard drink = 0.6 oz pur e alcohol) glass of wine rarely PHQ-2 Answer Date Recorded Total Score - Questions 1-9 0 01/11 Sexually Active Control Partners Comments Not Currently Comments No Sex and Gender Information Value Date Recorded Sex Assigned at Not on file Legal Sex Female 12:25 AM CDT Gender Identity Not on file Sexual Orientation Not on file Occupation Industry Job Start Date Job End Date cook Not on file Not on file Not on file documented as of this encounter Plan of Treatment Upcoming Encounters Date Type Department Care Team (Late st Contact Info) Description 08/25/2025 10:00 AM CDT Office Visit [facility] - Primary Care - [place] [address] [place] [address] Mehran Bloom MD [address] [place] [address] 10/30/2025 10:00 AM REHABILITATION COUNSELLOR Office Visit [facility] - Pulmonology & Sleep Medicine [facility] [address] [place] [address] Salvador Harmon MD [address] [place] [address] documented as of this encounter Visit Diagnoses Not on filedocumented in this encounter Additional Health Concerns Assessment Noted Time PHQ-9 Depression Total Score: 1 07/02/20 21 9:00 AM CDT documented as of this encounter Care Teams Ammonia Solution Preparer Relationship Specialty Start Date End Date Mehran Bloom MD PCP - General Internal Medicine 09/24/15 Salvador Harmon MD [address] [place] [address] Consulting Physician Pulmonary Disease 01/14/25 Reji Donald MD [address] [place] [address] Consulting Physician Neurology 04/24/25 documented as of this encounter
== END 2025-07-03 11:55 | disposition home or self-care (01) ==
PROVIDERS: Emergency Provider Nurse Practitioner Family; PCP Internal Medicine
DX: N39.0 Urinary tract infection, site not specified (principal); I10 Essential (primary) hypertension; I25.10 Atherosclerotic heart disease of native coronary artery without angina pectoris
CPT/HCPCS: 81003; 87086; 99213; G0463

== ENCOUNTER 2025-07-15 12:18 | Emergency (ER) | payer MEDICARE, SELFPAY ==
--- OUTSIDE RECORDS SUMMARY | 2025-07-15 12:20 | XMS_ITS | Encounter Summary ---
Author Organization [facility] Address [address] [place] [address] Phone Care Team Providers Care Supervisor Claims Name Role Phone Mehran Bloom MD Primary Care Provider [phone]- [phone] Salvador Harmon MD Unavailable Reji Donald MD Unavailable [phone] Reason for Visit * Reason Comments Medication Refill Encounter Details Date Type Department Care Team (Late st Contact Info) Description 02/27/2021 Refill [facility] - Internal Medicine [facility] [address] [place] [address] Mehran Bloom MD [address] [place] [address] Medication Refill Social History Tobacco Use Types [...] 10:00 AM CDT Office Visit [facility] - Primary Care - [place] [address] [place] [address] Mehran Bloom MD [address] [place] [address] 10/30/2025 10:00 AM PHARMACY RETAIL SUPPORT SPECIALIST Office Visit [facility] - Pulmonology & Sleep Medicine [facility] [address] [place] [address] Salvador Harmon MD [address] [place] [address] documented as of this encounter Visit Diagnoses Not on filedocumented in this encounter Additional Health Concerns Assessment Noted Time PHQ-9 Depression Total Score: 0 11/24/19 21 3:00 PM PHARMACY RETAIL SUPPORT SPECIALIST documented as of this encounter Care Teams Supervisor Claims Relationship Specialty Start Date End Date Mehran Bloom MD PCP - General Internal Medicine 09/24/15 Salvador Harmon MD [address] [place] [address] Consulting Physician Pulmonary Disease 01/14/25 Reji Donald MD [address] [place] [address] Consulting Physician Neurology 04/24/25 documented as of this encounter
--- OUTSIDE RECORDS SUMMARY | 2025-07-15 12:20 | XMS_ITS | Encounter Summary ---
Author Organization [facility] Address [address] [place] [address] Phone Care Team Providers Care Director Of Physical Therapy Name Role Phone Mehran Bloom MD Primary Care Provider [phone]- [phone] Salvador Harmon MD Unavailable Reji Donald MD Unavailable [phone] Reason for Visit * Reason Comments Medication Refill Encounter Details Date Type Department Care Team (Late st Contact Info) Description 09/21/2021 Refill [facility] - Internal Medicine - [place] [address] [place] [address] Mehran Bloom MD [address] [place] [address] Medication Refill Social History Tobacco Use Types [...] COVID-19? No / Unsure 09/24/2021 3:21 PM MANAGER MULTICULTURAL documented as of this encounter Plan of Treatment Upcoming Encounters Date Type Department Care Team (Late st Contact Info) Description 08/25/2025 10:00 AM CDT Office Visit [facility] - Primary Care - [place] [address] [place] [address] Mehran Bloom MD [address] [place] [address] 10/30/2025 10:00 AM MANAGER MULTICULTURAL Office Visit [facility] - Pulmonology & Sleep Medicine [facility] [address] [place] [address] Salvador Harmon MD [address] [place] [address] documented as of this encounter Visit Diagnoses Not on filedocumented in this encounter Additional Health Concerns Assessment Noted Time PHQ-9 Depression Total Score: 1 07/02/20 21 9:00 AM CDT documented as of this encounter Care Teams Director Of Physical Therapy Relationship Specialty Start Date End Date Mehran Bloom MD PCP - General Internal Medicine 09/24/15 Salvador Harmon MD [address] [place] [address] Consulting Physician Pulmonary Disease 01/14/25 Reji Donald MD [address] [place] [address] Consulting Physician Neurology 04/24/25 documented as of this encounter
--- OUTSIDE RECORDS SUMMARY | 2025-07-15 12:20 | XMS_ITS | Clinical Summary ---
Author Organization [facility] Address [address] [place] [address] Phone Care Team Providers Care Meeting/Event Planner Name Role Phone Mehran Bloom MD Primary Care Provider [phone]- [phone] Salvador Harmon MD Unavailable Reji Donald MD Unavailable [phone] Medications Acetaminophen (EQ ARTHRITIS PAIN PO) Take 2 Tabs by mouth daily. Active Ascorbic Acid (VITAMIN C PO) Take 1 Tab by mouth daily. Active atorvastatin (LIPITOR) 40 MG Tablet Take 1 Tablet by mouth nightly. 90 Tablet 1 11/21/2024 Active losartan (COZAAR) 100 MG Tablet TAKE 1 TABLET BY MOUTH DAILY. 90 Tablet 1 03/20/2025 Active pantoprazole (PROTONIX) 40 MG Tablet Delayed Response TAKE ONE TABLET BY MOUTH EVERY DAY 90 Tablet 04/22/2025 Active carvedilol (COREG) 6.25 MG Tablet Take 1 Tablet by mouth 2 times daily. 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 05/14/2024 Stress incontinence of urine 12/29/2022 Coronary artery disease invo lving [place] coronary artery of [place] heart with angina pectoris 11/24/2020 Essential hypertension, benign 05/31/2016 Other hyperlipidemia 05/31/2016 Gastroesophageal reflux disease without esophagi tis 05/31/2016 Resolved Problems Problem Noted Date Diagnosed Date Resolved Date Other chest pain 11/24/2020 08/07/2023 Community acquired bacterial pneumonia 05/31/2016 11/24/2020 Acute cystitis 05/31/2016 11/24/2020 Hypokalemia 05/31/2016 11/24/2020 Encounters Date Type Department Care Team Description 07/15/2025 Nurse Triage [facility] [address] [place] [address] Mehran Bloom MD Urinary Pain 07/03/2025 Nurse Triage [facility] [address] [place] [address] Mehran Bloom MD Appointment 05/26/2025 Results Follow-Up [facility] Internal Medicine [facility] [address] [place] [address] Mehran Bloom MD MRI L-SPINE W/O CONTRAST 05/24/2025 10:30 AM CDT - 05/24/2025 11:59 PM CDT Hospital Encounter [facility] MRI [address] [place] [address] Mehran Bloom MD Discharge Disposition: Discharged to home or Selfcare 05/22/2025 10:40 AM CDT Office Visit [facility] Internal Medicine [facility] [address] [place] [address] Mehran Bloom MD Essential hypertension, benign (Primary Dx); Chronic bilateral low back pain with bilateral sciatica; Other hyperlipidemia; Coronary artery disease involving [place] coronary artery of [place] heart with angina pectoris (HCC); Gastroesophageal reflux disease without esophagitis Discharge Disposition: Discharged to home or Selfcare 05/22/2025 Travel 04/25/2025 Travel 04/22/2025 Refill [facility] Internal Medicine [facility] [address] [facility] [place] [address] Mehran Bloom MD Medication Refill 04/17/2025 10:30 AM CDT Office Visit [facility] - Pulmonology & Sleep Medicine - [place] [address] [place] [address] Salvador Harmon MD ILD (interstitial lung disease) [...] PF 08/15/2024 Pneumococcal Vaccine - 13 Valent 06/01/2016,0811/2013 Pneumococcal Vaccine Adult - 23 Valent 6 [...] pur e alcohol) glass of wine rarely [facility] LiveSafe[employer] Answer Date Recorded In the past 12 months has [employer], gas, oil, or water [employer] threatened to shut off services in your [...] often do you attend chur ch or buddhism services? More than 4 times per year 02/08/2024 Do you belong to any clubs o r organizations such as hindu groups, unions, fraternal or athletic groups, or [...] Total Score - Questions 1-9 0 07/2025 [facility] of Occupat ional Health - Occupational Stress [...] place to sleep or slept in a mcfp (including now)? No 02/08/2024 Sexually Active Control [...] Description 08/25/2025 10:00 AM CDT Office Visit [facility] - Primary Care - [place] [address] [place] [address] Mehran Bloom MD [address] [place] [address] 10/30/2025 10:00 AM DEVELOPMENT ENG Office Visit [facility] - Pulmonology & Sleep Medicine [facility] [address] [place] [address] Salvador Harmon MD [address] [place] [address] Health Maintenance Due Date Last Done Comments Hepatitis C Virus (HCV) Screening 1940 TdaP Immunization 1940 Respiratory Syncytial Virus (RSV) Immunization (Adult) (1 - 1-dose 75+ series) 2016 Influenza Immunization (#1) 2025 10/0 01/2024, 08/07/2023, 08/03/2022, Additional history exists SARS-COV-2 Immunization ( season) 2025 07/07/2021, 06/09/2021 DEXA Bone Density 05/01/2026 05/01/2024, , 08/10/2017 [...] NEUROLOGY CONSULT 04/25/2025 12: 00 AM CDT [facility] BONE DENSITOMETRY AXIAL SKELETON [...] Jude Acosta M.D. JOHNATHAN: JOHNATHAN Report ID: [id number] Reading Location: [place] [address] Procedure Note Jude Acosta MD - 05/26/2025 [...] Jude Acosta M.D. JOHNATHAN: JOHNATHAN Report ID: [id number] Reading Location: [id number] IMPRESSION: Constellation of spondylolisthesis, spondylosis, and degenerative disc disease of the lumbar spine as detailed level by level above. Mehran Bloom MD IMG MR ORDERABLES Final Res ult * NEUROLOGY CONSULT (04/25/2025 12:00 AM CDT) 04/25/2025 us Provider Scan GENERIC SCAN ORDERS CONSULT Celeste young Result SCAN * [facility] BONE DENSITOMETRY AXIAL SKELETON (05/01/2024 1:49 PM [...] Narrative 05/01/2024 8:32 PM CDT EXAM DESCRIPTION: [facility] BONE DENSITOMETRY AXIAL SKELETON REASON FOR STUDY: 83 y/o year old F with given history of: Asymptomatic menopausal state Enterprise Account Executive/Model: webtide (S/N [id number]) CLINICAL INFORMATION: Current height: 64 inches Maximum [...] Samy Buitrago M.D. MF: OSIEL Report ID: [id number] Reading Location: [address] Note Samy Buitrago MD - 05/01/2024 EXAM DESCRIPTION: [facility] BONE DENSITOMETRY AXIAL SKELETON REASON FOR STUDY: 83 y/o year old F with given history of: Asymptomatic menopausal state Enterprise Account Executive/Model: webtide (S/N [id number]) CLINICAL INFORMATION: Current height: 64 inches Maximum [...] Samy Buitrago M.D. MF: OSIEL Report ID: [id number] Reading Location: [place] [address] IMPRESSION: Osteoporosis. REFERENCE: Bone mineral density: T-Score: [...] Recently Relevant to Health Maintenance Insurance MEDICARE [facility] [address] Advance Directives * Full Code (Latest Code Status on File) Date Activated Date Inactivated Comments 05/31/2016 8:59 AM 06/02/2016 3:06 PM CPR-Full Ariel atment: FULL ARREST: Attempt Resuscitation/CPR wit intubation and mechanical ventilation. PRE-ARREST: Use entire range of life support measures to stabilize the patient. Care Teams Meeting/Event Planner Relationship Specialty Start Date End Date Mehran Bloom MD PCP - General Internal Medicine 09/24/15 Salvador Harmon MD [address] [place] [address] Consulting Physician Pulmonary Disease 01/14/25 Reji Donald MD [address] [place] [address] Consulting Physician Neurology 04/24/25
--- OUTSIDE RECORDS SUMMARY | 2025-07-15 12:20 | XMS_ITS | Encounter Summary ---
Author Organization [facility] Address [address] [place] [address] Phone Care Team Providers Care Slate Roofer Helper Name Role Phone Mehran Bloom MD Primary Care Provider [phone]- [phone] Salvador Harmon MD Unavailable Reji Donald MD Unavailable [phone] Reason for Visit * Reason Onset Date Comments Urinary Pain 07/15/2025 Encounter Details Date Type Department Care Team (Late st Contact Info) Description 07/15/2025 [facility] [address] [place] [address] Mehran Bloom MD [address] [place] [address] Urinary Pain Social History Tobacco Use Types Packs/Day Years Used Date Smoking Tobacco: Never Passive Smoke Exposure: Never Smokeless Tobacco: Never Alcohol Use Standard Drinks/Week Comments Not Currently 0 (1 standard drink = 0.6 oz pur e alcohol) glass of wine rarely [facility] Utilities Answer Date Recorded In the past 12 months has [place] electric, gas, oil, or water company threatened [...] often do you attend chur ch or faith services? More than 4 times per year 02/08/2024 Do you belong to any clubs o r organizations such as anabaptist groups, unions, fraternal or athletic groups, or [...] Total Score - Questions 1-9 0 07/2025 [facility] Occupat ional Health - Occupational [...] place to sleep or slept in a halfway (including now)? No 02/08/2024 Sexually Active Control [...] encounter Miscellaneous Notes * Telephone Encounter - Macey Hernandez RN - 07/15/2025 10:06 AM CDT SITUATION: 84 y.o. with uti symptoms BACKGROUND: Patient contacting PCP office. Was seen at urgent care on 07/03 and dx with uti and was given antibiotic ASSESSMENT: Symptom Description / Location: Finished antibiotic about 6 days ago and she felt better and then symptoms returned on 07/12 Frequency Urgency Mild discomfort with urination Having some constipation as well Has taken stool softener at times Small BM today No rectal garces No abdominal pain Treatment / Response: tylenol No reported treatment. Pain ratin/10 Denies fever. RECOMMENDATION: Advised she should be seen due to uti symptoms and constipaton. No openings in office will go to urgent care Caller agreeable to highest disposition listed: See in Office or Video Visit Today. - Reason for Disposition: Age > 50 years . Protocols Used: Urination Pain - Vlghuw-Q-ED--Standing order available See care advice and disposition for Guideline. First positive answer recorded, all responses to prior questions were negative. If symptoms increase, change or if new symptoms develop, call your health care provider or call back. Recommendations were based on caller information and is not a diagnosis. Verified and reviewed all triage information with caller. documented in this encounter Plan of Treatment Upcoming Encounters Date Type Department Care Team (Late st Contact Info) Description 08/25/2025 10:00 AM CDT Office Visit [facility] - Primary Care - [place] [address] [place] [address] Mehran Bloom MD [address] [place] [address] 10/30/2025 10:00 AM GROUP FITNESS INSTRUCTOR Office Visit [facility] - Pulmonology & Sleep Medicine [facility] [address] [place] [address] Salvador Harmon MD [address] [place] [address] documented as of this encounter Visit Diagnoses Not on filedocumented in this encounter Additional Health Concerns Assessment Noted Time PHQ-9 Depression Total Score: 0 11/21/19 10:00 AM GROUP FITNESS INSTRUCTOR documented as of this encounter Care Teams Slate Roofer Helper Relationship Specialty Start Date End Date Mehran Bloom MD PCP - General Internal Medicine 09/24/15 Salvador Harmon MD [address] [place] [address] Consulting Physician Pulmonary Disease 01/14/25 Reji Donald MD [address] [place] [address] Consulting Physician Neurology 04/24/25 documented as of this encounter
--- OUTSIDE RECORDS SUMMARY | 2025-07-15 12:20 | XMS_ITS | Encounter Summary ---
Author Organization [facility] Address [address] [place] [address] Phone Care Team Providers Care Curator Of Education Name Role Phone Mehran Bloom MD Primary Care Provider [phone]- [phone] Salvador Harmon MD Unavailable Reji Donald MD Unavailable [phone] Reason for Visit * Reason Comments Medication Refill Encounter Details Date Type Department Care Team (Late st Contact Info) Description 02/24/[address] [facility] Group - Internal Medicine - [place] [address] [place] [address] Jane Holliday, [facility] [address] [place] [address] Medication Refill Social History Tobacco Use Types [...] Description 08/25/2025 10:00 AM CDT [facility] [place] [address] [place] [address] Mehran Bloom MD [address] [place] [address] 10/30/2025 10:00 AM GARMENT WORKER [facility] [address] [place] [address] Salvador Harmon MD [address] [place] [address] documented as of this encounter Visit Diagnoses Not on filedocumented in this encounter Additional Health Concerns Assessment Noted Time PHQ-9 Depression Total Score: 0 11/24/19 21 3:00 PM GARMENT WORKER documented as of this encounter Care Teams Curator Of Education Relationship Specialty Start Date End Date Mehran Bloom MD PCP - General Internal Medicine 09/24/15 Salvador Harmon MD [address] [place] [address] Consulting Physician Pulmonary Disease 01/14/25 Reji Donald MD [address] [place] [address] Consulting Physician Neurology 04/24/25 documented as of this encounter
--- OUTSIDE RECORDS SUMMARY | 2025-07-15 12:20 | XMS_ITS ---
Author Organization [facility] Address [address] [place] [address] Phone Care Team Providers Care Flight Service Specialist Name Role Phone Mehran Bloom MD Primary Care Provider +[phone] Salvador Harmon MD Unavailable Reji Donald MD Unavailable [phone] OnCall Chronic Care Management Status:Identified (Enrolling) Start date:06/25/2025 Enrollment reason:Identified using claims or encounter data Related social drivers of health:Intimate Partner Violence, Social Connections, Alcohol Use, Tobacco Use, Financial Resource Strain,Depression, Stress, Physical Activity, Food Insecurity, Transportation Needs, Housing Stability, Utilities Continued Care and Services Coordination
--- OUTSIDE RECORDS SUMMARY | 2025-07-15 12:20 | XMS_ITS | Encounter Summary ---
Author Organization [facility] Address [address] [place] [address] Phone Care Team Providers Care Auto Body Repair Estimator Name Role Phone Mehran Bloom MD Primary Care Provider [phone]- [phone] Salvador Harmon MD Unavailable Reji Donald MD Unavailable [phone] Reason for Visit * Reason Comments Medication Refill Encounter Details Date Type Department Care Team (Late st Contact Info) Description 04/12/2022 [facility]ill [facility] - Internal Medicine - [place] [address] [place] [address] Mehran Bloom MD [address] [place] [address] Medication Refill Social History Tobacco Use Types [...] - Primary Care - [place] [address] [place] [address] Mehran Bloom MD [address] [place] [address] 10/30/2025 10:00 AM RED MUD THICKENER OPERATOR Office Visit [facility] - Pulmonology & Sleep Medicine [facility] [address] [place] [address] Salvador Harmon MD [address] [place] [address] documented as of this encounter Visit Diagnoses Not on filedocumented in this encounter Additional Health Concerns Assessment Noted Time PHQ-9 Depression Total Score: 1 07/02/20 21 9:00 AM CDT documented as of this encounter Care Teams Auto Body Repair Estimator Relationship Specialty Start Date End Date Mehran Bloom MD PCP - General Internal Medicine 09/24/15 Salvador Harmon MD [address] [place] [address] Consulting Physician Pulmonary Disease 01/14/25 Reji Donald MD [address] [place] [address] Consulting Physician Neurology 04/24/25 documented as of this encounter
--- OUTSIDE RECORDS SUMMARY | 2025-07-15 12:20 | XMS_ITS | Clinical Summary ---
Author Organization [facility] Medical Office Building [address] Address [address] [place] [address] Care Team Providers Care Paving Foreman Name Role Phone Mehran Bloom MD Primary Care Provider +1- [phone] Allergies No known active allergies Medications aspirin [...] on file Legal Sex Female 8:44 AM TRUCK TERMINAL MANAGER Gender Identity Not on file Sexual [...] PM CDT Pulse 107 11/26/2021 9:38 AM TRUCK TERMINAL MANAGER Temperature 36.8 C (98.3 F) 11/26/2021 9:38 AM TRUCK TERMINAL MANAGER Respiratory Rate 20 11/26/2021 9:38 AM TRUCK TERMINAL MANAGER Oxygen Saturation 98% 11/26/2021 9:38 AM TRUCK TERMINAL MANAGER Inhaled Oxygen Concentration - - Weight [...] Density Scan 08/11/2019 08/11/2017, 08/10/2017 Covid-19 Vaccine (3 - 2024-2 6 season) 2025 07/07/2021, 06/09/2021 Influenza Vaccine (#1) 2025 2, [...] Recently Relevant to Health Maintenance Insurance MEDICARE [facility] SUPPLEMENT RADHA BERNAL [id number] MEDICARE [facility] SUPPLEMENT RADHA BERNAL [id number] Care Teams Paving Foreman Relationship Specialty Start Date End Date Mehran Bloom MD [facility] [place] [address] [facility] - General 08/17/11
--- OUTSIDE RECORDS SUMMARY | 2025-07-15 12:20 | XMS_ITS | Encounter Summary ---
Author Organization [facility] Address [address] [place] [address] Phone Care Team Providers Care Diving Instructor Name Role Phone Mehran Bloom MD Primary Care Provider +1- [phone] Salvador Harmon MD Unavailable Reji Donald MD Unavailable [phone] Reason for Visit * Reason Comments Medication Refill Encounter Details Date Type Department Care Team (Late st Contact Info) Description 02/11/2021 Refill [facility] Medical Group - Internal Medicine [facility] [address] [place] [address] Mehran Bloom MD [address] [place] [address] Medication Refill Social History Tobacco Use Types [...] Description 08/25/2025 10:00 AM CDT [facility] [place] [address] [place] [address] Mehran Bloom MD [address] [place] [address] 10/30/2025 10:00 AM CTE TEACHER [facility] [address] [place] [address] Salvador Harmon MD [address] [place] [address] documented as of this encounter Visit Diagnoses Not on filedocumented in this encounter Additional Health Concerns Assessment Noted Time PHQ-9 Depression Total Score: 0 11/24/19 21 3:00 PM CTE TEACHER documented as of this encounter Care Teams Diving Instructor Relationship Specialty Start Date End Date Mehran Bloom MD PCP - General Internal Medicine 09/24/15 Salvador Harmon MD [address] [place] [address] Consulting Physician Pulmonary Disease 01/14/25 Reji Donald MD [address] [place] [address] Consulting Physician Neurology 04/24/25 documented as of this encounter
--- OUTSIDE RECORDS SUMMARY | 2025-07-15 12:20 | XMS_ITS | Encounter Summary ---
Author Organization [facility] Address [address] [place] [address] Phone Care Team Providers Care Windows Admin Name Role Phone Mehran Bloom MD Primary Care Provider [phone]- [phone] Salvador Harmon MD Unavailable Reji Donald MD Unavailable [phone] Reason for Visit * Reason Comments Medication Refill Encounter Details Date Type Department Care Team (Late st Contact Info) Description 01/11/2024 Refill [facility] Medical Group - Internal Medicine - [place] [address] [place] [address] Mehran Bloom MD [address] [place] [address] Medication Refill Social History Tobacco Use Types [...] 08/14/23 Telemedicine Mehran Bloom MD [facility] [place] 08/07/23 Office Visit Mehran Bloom MD [facility] [place] 05/04/23 Office Visit Mehran Bloom MD [facility] [place] 03/30/23 Office Visit Mehran Bloom MD [facility] [place] 03/17/23 Office Visit Jane Holliday PAC [facility] [place] Showing recent visits within past 365 days and meeting all other requirements Future Appointments Date Type Provider Dept 02/08/24 Appointment Mheran Bloom MD [facility] [place] Showing future appointments within next 90 days and meeting all other requirements TECH documented in this encounter Plan of Treatment Upcoming Encounters Date Type Department Care Team (Late st Contact Info) Description 08/25/2025 10:00 AM CDT Office Visit [facility] - Primary Care - [place] [address] [place] [address] Mehran Bloom MD [address] [place] [address] 10/30/2025 10:00 AM EVS TECH Office Visit [facility] - Pulmonology & Sleep Medicine [facility] [address] [place] [address] Salvador Harmon MD [address] [facility] [place] [address] documented as of this encounter Visit Diagnoses Not on filedocumented in this encounter Additional Health Concerns Assessment Noted Time PHQ-9 Depression Total Score: 1 07/02/20 21 9:00 AM CDT documented as of this encounter Care Teams Windows Admin Relationship Specialty Start Date End Date Mehran Bloom MD PCP - General Internal Medicine 09/24/15 Salvador Harmon MD [address] [place] [address] Consulting Physician Pulmonary Disease 01/14/25 Reji Donald MD [address] [place] [address] Consulting Physician Neurology 04/24/25 documented as of this encounter
--- OUTSIDE RECORDS SUMMARY | 2025-07-15 12:20 | XMS_ITS | Encounter Summary ---
Author Organization [facility] Address [address] [place] [address] Phone Care Team Providers Care Color Tester Name Role Phone Mehran Bloom MD Primary Care Provider [phone]- [phone] Salvador Harmon MD Unavailable Reji Donald MD Unavailable [phone] Reason for Visit * Reason Comments Medication Refill Encounter Details Date Type Department Care Team (Late st Contact Info) Description 03/30/2021 Refill [facility] Medical Group - Internal Medicine [facility] [address] [place] [address] Mehran Bloom MD [address] [place] [address] Medication Refill Social History Tobacco Use Types [...] Description 08/25/2025 10:00 AM CDT [facility] [place] [address] [place] [address] Mehran Bloom MD [address] [place] [address] 10/30/2025 10:00 AM CIVIL MANAGER [facility] [address] [place] [address] Salvador Harmon MD [address] [place] [address] documented as of this encounter Visit Diagnoses Not on filedocumented in this encounter Additional Health Concerns Assessment Noted Time PHQ-9 Depression Total Score: 0 11/24/19 21 3:00 PM CIVIL MANAGER documented as of this encounter Care Teams Color Tester Relationship Specialty Start Date End Date Mehran Bloom MD PCP - General Internal Medicine 09/24/15 Salvador Harmon MD [address] [place] [address] Consulting Physician Pulmonary Disease 01/14/25 Reji Donald MD [address] [place] [address] Consulting Physician Neurology 04/24/25 documented as of this encounter
--- OUTSIDE RECORDS SUMMARY | 2025-07-15 12:20 | XMS_ITS | Encounter Summary ---
Author Organization [facility] Address [address] [place] [address] Phone Care Team Providers Care Aluminum Siding Mechanic Name Role Phone Mehran Bloom MD Primary Care Provider [phone]- [phone] Salvador Harmon MD Unavailable Reji Donald MD Unavailable [phone] Reason for Visit * Reason Comments Medication Refill Encounter Details Date Type Department Care Team (Late st Contact Info) Description 04/16/2024 Refill [facility] Medical Group - Internal Medicine - [place] [address] [place] [address] Mehran Bloom MD [address] [place] [address] Medication Refill Social History Tobacco Use Types Packs/Day Years Used Date Smoking Tobacco: Never Passive Smoke Exposure: Never Smokeless Tobacco: Never Alcohol Use Standard Drinks/Week Comments Not Currently 0 (1 standard drink = 0.6 oz pur e alcohol) glass of wine rarely [facility] Utilities Answer Date Recorded In the past 12 months has [employer] electric, gas, oil, or water company threatened [...] often do you attend chur ch or alevism services? More than 4 times per year 02/08/2024 Do you belong to any clubs o r organizations such as mormon groups, unions, fraternal or athletic groups, or [...] Total Score - Questions 1-9 1 01/12 [facility] - [...] place to sleep or slept in a residential (including now)? No 02/08/2024 Sexually Active Control [...] PM CDT Medication(s) refilled and signed per [facility] Chronic Medication Refill Standing Order for [...] 03/12/24 Office Visit Mehran Bloom MD [facility] [place] 02/27/24 Office Visit Mehran Bloom MD [facility] [place] 02/08/24 Office Visit Mehran Bloom MD [facility] [place] 08/14/23 Telemedicine Mehran Bloom MD [facility] [place] 08/07/23 Office Visit Mehran Bloom MD [facility] [place] 05/04/23 Office Visit Mehran Bloom MD [facility] [place] Showing recent visits within past 365 days and meeting all other requirements Future Appointments Date Type Provider Dept 05/14/24 Appointment [facility] Show[facility] future appointments within next 90 days and meeting all other requirements documented in this encounter Plan of Treatment Upcoming Encounters Date Type Department Care Team (Late st Contact Info) Description 08/25/2025 10:00 AM CDT Office Visit [facility] - Primary Care - [place] [address] [place] [address] Mehran Bloom MD [address] [place] [address] 10/30/2025 10:00 AM JIG GRINDER Office Visit [facility] - Pulmonology & Sleep Medicine [facility] [address] [place] [address] Salvador Harmon MD [address] [place] [address] documented as of this encounter Visit Diagnoses Not on filedocumented in this encounter Additional Health Concerns Assessment Noted Time PHQ-9 Depression Total Score: 1 02/08/20 24 8:58 AM CDT documented as of this encounter Care Teams Aluminum Siding Mechanic Relationship Specialty Start Date End Date Mehran Bloom MD PCP - General Internal Medicine 09/24/15 Salvador Harmon MD [address] [place] [address] Consulting Physician Pulmonary Disease 01/14/25 Reji Donald MD [address] [place] [address] Consulting Physician Neurology 04/24/25 documented as of this encounter
--- NOTE | 2025-07-15 12:21 | ED.FEMALEGU ---
HPI - Female Genitourinary General Chief complaint: Urogenital-Female Stated complaint: UTI Time Seen by Provider: 07/15/25 12:25 Source: patient Mode of arrival: ambulatory Limitations: no limitations History of Present Illness HPI Narrative: Bette is an 84-year-old female patient presenting to the clinic today with complaints of possible UTI times 2-3 days. She reports she was seen in the clinic on July 03 and treated for a urinary tract infection. She states she took all the Augmentin that she was prescribed. Over the weekend she developed urinary frequency and bladder discomfort. Denies any fevers, chills, body aches, back pain, or abdominal pain. History of bladder lift surgery. Last culture positive for E coli and was susceptible to Augmentin. Related Data Home Medications ?Medication ?Instructions ?Recorded ?Confirmed ?Last Taken ?Type aspirin 81 mg chewable tablet 81 mg PO DAILY 05/23/21 12/23/22 Unknown History (Aspirin Childrens) Held on 01/06/23. Instructions: Resume on 01/08/23. carvedilol 6.25 mg tablet 6.25 mg PO BID 05/23/21 12/23/22 Unknown History pantoprazole 40 mg tablet,delayed 40 mg PO DAILY 05/23/21 12/23/22 Unknown History release [place] 3 500 mg 2XW 12/23/22 12/23/22 Unknown History calcium 600 mg-D3 20 mcg-magnesium tablet PO DAILY 12/23/22 Unknown History 50 ax-Nw-seibzh-melanie-boron tablet (Calcium 600-D3 Plus (mag-zinc)) coenzyme Q10 100 mg capsule 100 mg PO DAILY 12/23/22 12/23/22 Unknown History (CoQ-10) garlic 1,000 mg capsule 1,000 mg PO DAILY 12/23/22 12/23/22 Unknown History ginkgo biloba extract-Panax 1 cap PO DAILY 12/23/22 12/23/22 Unknown History ginseng root extract 60 mg-100 mg capsule losartan 100 mg tablet 100 mg QAM 12/23/22 12/23/22 Unknown History turmeric root extract 500 mg 500 mg PO DAILY 12/23/22 12/23/22 Unknown History capsule vit C 250 mg-vit E 90 mg-zinc 40 1 tablet PO BID 12/23/22 12/23/22 Unknown History mg-copper 1 wp-oicqkd-xvxrfq capsule (PreserVision AREDS-2) vitamin E 670 mg (1,000 unit) 670 mg PO DAILY 12/23/22 12/23/22 Unknown History capsule sqnshlyp-hfiebqtcx-kdekpjxf 3.5 drp 07/03/25 Unknown History mg/mL-10,000 unit/mL-0.1% eye drops Allergies Allergy/AdvReac Type Severity Reaction Status Date / Time No Known Allergies Allergy Verified 07/15/25 12:27 Review of Systems Review of Systems: Pertinent positives per HPI. Patient denies any fever, chills, rash, headache, visual changes, dizziness, cough, runny nose, sore throat, shortness of breath, chest pain, palpitations, nausea, vomiting, diarrhea, constipation, abdominal pain. [facility] Past Medical History Medical History CAD (coronary artery disease) GERD (gastroesophageal reflux disease) Hypertension High cholesterol Surgical History Surgical History History of coronary artery stent placement Social History Social History Smoking status: Never smoker Second hand tobacco smoke exposure: No Alcohol intake: never Substance use: never Substance use type: does not use Living arrangements: alone Gender identity (if verbalized by the patient): Female Spiritual care concerns: No Comments At the time of my signature, I reviewed and agree with the nursing past medical, surgical, social, and family history. There is no relevant family history pertinent to the patient complaint. Exam Narrative: General: Well-developed, well nourished, in no apparent distress. Head: Normocephalic, atraumatic. Cardio: Regular rate and rhythm, s1 and s2 normal, no murmur appreciated. Resp: Clear to auscultation bilaterally, no rhonchi, rales, wheezing or rubs. Abdomen: Soft, pliable, bowel sounds present in all quadrants, suprapubic tender to palpation, no organomegly, no CVAT tenderness. Course Course Emergency Course: Portions of this record may have been created with voice recognition software. Level of Care: Express Care Visit Vital Signs Vital signs: Vital Signs Temperature 36.6 C 07/15/25 12:22 Pulse Rate 78 07/15/25 12:22 Respiratory Rate 20 07/15/25 12:22 Blood Pressure 190/84 H 07/15/25 12:22 Pulse Oximetry 98 07/15/25 12:22 Oxygen Delivery Room Air 07/15/25 12:22 Temperature 36.6 C 07/15/25 12:22 Pulse Rate 78 07/15/25 12:22 Respiratory Rate 20 07/15/25 12:22 Blood Pressure 190/84 H 07/15/25 12:22 Pulse Oximetry 98 07/15/25 12:22 Oxygen Delivery Room Air 07/15/25 12:22 Vital signs reviewed MDM - Female Genitourinary MDM Narrative Medical decision making narrative: At the time of visit patient is resting comfortably on the exam table. Patient appears to be nontoxic. Complaints of possible UTI times 2-3 days. She reports she was seen in the clinic on July 03 and treated for a urinary tract infection. She states she took all the Augmentin that she was prescribed. Over the weekend she developed urinary frequency and bladder discomfort. Denies any fevers, chills, body aches, back pain, or abdominal pain. History of bladder lift surgery. Last culture positive for E coli and was susceptible to Augmentin. Labs: Urinalysis shows 3+ leukocytes, nitrate positive, 2+ protein, 1+ blood. We will send urine for culture Plan: I suspect patient has urinary tract infection. Prescription for cephalexin was sent to the pharmacy. Supportive measures were discussed with the patient and they voiced understanding discharge instructions and agrees to treatment plan. Return precautions reviewed Differential Diagnosis Differential diagnosis: Likely urinary tract infection and cystitis Lab Data Labs: Lab Results 07/15/25 Range/Units 12:34 POC Urine Color Pending POC Urine Clarity Pending POC Urine pH Pending POC Ur Specif [place] Pending POC Urine Protein Pending POC Ur Glucose (UA) Pending POC Urine Ketones Pending POC Urine Blood Pending POC Urine Nitrite Pending POC Urine Bilirubin Pending POC Urine Urobilinogen Pending POC U Leukocyte Esteras Pending Discharge Plan Discharge Clinical Impression: Urinary tract infection Qualifiers: Urinary tract infection type: acute cystitis Hematuria presence: with hematuria Qualified Code(s): N30.01 - Acute cystitis with hematuria Patient Disposition: Home Condition: Stable Instructions: Antibiotic Form, Urinary Tract Infection in Older Adults (ED) Additional Instructions: Urine positive for leukocytes, nitrates, protein, and blood. We will send urine for culture. Take cephalexin as prescribed Increase fluids and stay well hydrated Wipe front to back. May use wet wipes. Avoid tub baths If sexually active- pee before and after intercourse. Wear cotton panties Avoid tight clothing up against the genitals Follow up with your PCP in 1 week if symptoms persist. Patient Language: Austrian Prescriptions: New cephalexin 500 mg capsule 500 mg PO Q12H 7 Days Qty: 14 0RF No Action carvedilol 6.25 mg tablet 6.25 mg PO BID pantoprazole 40 mg tablet,delayed release (DR/EC) 40 mg PO DAILY aspirin [Aspirin Childrens] 81 mg Tablet,Chewable 81 mg PO DAILY neomycin-polymyxin B-dexameth 3.5mg/mL-10,000 unit/mL-0.1 % drops,suspension vitamin E 670 mg (1,000 unit) Capsule 670 mg PO DAILY garlic 1,000 mg Capsule 1,000 mg PO DAILY losartan 100 mg tablet 100 mg QAM coenzyme Q10 [CoQ-10] 100 mg Capsule 100 mg PO DAILY ginkgo biloba-Panax ginseng rt 60-100 mg Capsule 1 cap PO DAILY turmeric root extract 500 mg Capsule 500 mg PO DAILY PreserVision AREDS-2 250-90-40-1 mg Capsule 1 tablet PO BID Ca-D3-mag yz-kmnf-mwo-nell-bor [Calcium 600-D3 Plus (mag-zinc)] 600 mg calcium- 20 mcg-50 mg Tablet PO DAILY [place] 3 500 mg 2XW docusate sodium [Colace] 100 mg capsule 100 mg PO BID Qty: 60 0RF tramadol 50 mg tablet 50 mg PO Q6H PRN (Reason: pain) Qty: 20 0RF Follow-up/Referrals: Wolf,Mehran Adames MD [Primary Care Provider, Unknown] Time of Disposition: 12:42 Quality NIHSS Nursing Documentation ED NIHSS nursing documentation: reviewed/agree
[2025-07-15 12:22] VITALS: BP 190/84; PULSE 78; RESP 20; TEMP 36.6; O2SAT 98
[2025-07-15 12:43] LABS: EDUAAPPEAR Cloudy; EDUABILI Negative (Negative); EDUABLOOD 1+ (Negative); EDUACOLOR1 Yellow; EDUAGLUCOSE Negative (Negative); EDUAKETONE Negative (Negative); EDUALEUKO 3+ (Negative); EDUANITRATE Positive (Negative); EDUAPH 6.0; EDUAPROTEIN 2+ (Negative); EDUASPGRAVITY 1.015; EDUAUROBILI 0.2
== END 2025-07-15 12:47 | disposition home or self-care (01) ==
PROVIDERS: Emergency Provider Nurse Practitioner Family; PCP Internal Medicine
DX: N30.01 Acute cystitis with hematuria (principal); I25.10 Atherosclerotic heart disease of native coronary artery without angina pectoris; I10 Essential (primary) hypertension
CPT/HCPCS: 81003; 87077; 87086; 87186; 99213; G0463

== ENCOUNTER 2025-07-26 09:11 | Emergency (ER) | payer MEDICARE, SELFPAY ==
--- OUTSIDE RECORDS SUMMARY | 2025-07-26 09:13 | XMS_ITS | Encounter Summary ---
Author Organization [facility] Address [address] [place] [address] Phone Care Team Providers Care Deck Officer Name Role Phone Mehran Bloom MD Primary Care Provider [phone]- [phone] Salvador Harmon MD Unavailable Reji Donald MD Unavailable [phone] Reason for Visit * Reason Comments Medication Refill Encounter Details Date Type Department Care Team (Late st Contact Info) Description 03/30/2021 Refill [facility] Medical Group - Internal Medicine [facility] [address] [place] [address] Mehran Bloom MD [address] [place] [address] Medication Refill Social History Tobacco Use Types [...] Description 08/25/2025 10:00 AM CDT [facility] [place] [address] [place] [address] Mehran Bloom MD [address] [place] [address] 10/30/2025 10:00 AM HEALTH COMMISSIONER [facility] - [facility] & [facility] [address] [place] [address] Salvador Harmon MD [address] [place] [address] documented as of this encounter Visit Diagnoses Not on filedocumented in this encounter Additional Health Concerns Assessment Noted Time PHQ-9 Depression Total Score: 0 11/24/19 21 3:00 PM HEALTH COMMISSIONER documented as of this encounter Care Teams Deck Officer Relationship Specialty Start Date End Date Mehran Bloom MD PCP - General Internal Medicine 09/24/15 Salvador Harmon MD [address] [place] [address] Consulting Physician Pulmonary Disease 01/14/25 Reji Donald MD [address] [place] [address] Consulting Physician Neurology 04/24/25 documented as of this encounter
--- OUTSIDE RECORDS SUMMARY | 2025-07-26 09:13 | XMS_ITS | Encounter Summary ---
Author Organization [facility] Address [address] [place] [address] Phone Care Team Providers Care Regional Account Executive Name Role Phone Mehran Bloom MD Primary Care Provider [phone]- [phone] Salvador Harmon MD Unavailable Reji Donald MD Unavailable [phone] Reason for Visit * Reason Comments Medication Refill Encounter Details Date Type Department Care Team (Late st Contact Info) Description 02/11/2021 Refill [facility] Medical Group - Internal Medicine [facility] [address] [place] [address] Mehran Bloom MD [address] [place] [address] Medication Refill Social History Tobacco Use Types [...] Miscellaneous Notes * Telephone Encounter - Elisabeth oNvak RN - 02/11/2021 10:43 AM CDT Please review and sign. documented in this encounter Plan of Treatment Upcoming Encounters Date Type Department Care Team (Late st Contact Info) Description 08/25/2025 10:00 AM CDT [facility] [place] [address] [place] [address] Mehran Bloom MD [address] [place] [address] 10/30/2025 10:00 AM CLINICAL ACCOUNT SPECIALIST [facility] [place] [address] [place] [address] Salvador Harmon MD [address] [place] [address] documented as of this encounter Visit Diagnoses Not on filedocumented in this encounter Additional Health Concerns Assessment Noted Time PHQ-9 Depression Total Score: 0 11/24/19 21 3:00 PM CLINICAL ACCOUNT SPECIALIST documented as of this encounter Care Teams Regional Account Executive Relationship Specialty Start Date End Date Mehran Bloom MD PCP - General Internal Medicine 09/24/15 Salvador Harmon MD [address] [place] [address] Consulting Physician Pulmonary Disease 01/14/25 Reji Donald MD [address] [place] [address] Consulting Physician Neurology 04/24/25 documented as of this encounter
--- OUTSIDE RECORDS SUMMARY | 2025-07-26 09:13 | XMS_ITS | Encounter Summary ---
Author Organization [facility] Address [address] [place] [address] Phone Care Team Providers Care Gravel Screener Name Role Phone Mehran Bloom MD Primary Care Provider [phone]- [phone] Salvador Harmon MD Unavailable Reji Donald MD Unavailable [phone] Reason for Visit * Reason Comments Medication Refill Encounter Details Date Type Department Care Team (Late st Contact Info) Description 04/12/2022 [facility]ill [facility] - [place] [address] [place] [address] Mehran Bloom MD [address] [place] [address] Medication Refill Social History Tobacco Use Types [...] Care - [place] [address] [place] [address] Mehran Bloom MD [address] [place] [address] 10/30/2025 10:00 AM DATA MANAGEMENT Office Visit [facility] - Pulmonology & Sleep Medicine [facility] [address] [place] [address] Salvador Harmon MD [address] [place] [address] documented as of this encounter Visit Diagnoses Not on filedocumented in this encounter Additional Health Concerns Assessment Noted Time PHQ-9 Depression Total Score: 1 07/02/20 21 9:00 AM CDT documented as of this encounter Care Teams Gravel Screener Relationship Specialty Start Date End Date Mehran Bloom MD PCP - General Internal Medicine 09/24/15 Salvador Harmon MD [address] [place] [address] Consulting Physician Pulmonary Disease 01/14/25 Reji Donald MD [address] [place] [address] Consulting Physician Neurology 04/24/25 documented as of this encounter
--- OUTSIDE RECORDS SUMMARY | 2025-07-26 09:13 | XMS_ITS | Encounter Summary ---
Author Organization [facility] Address [address] [place] [address] Phone Care Team Providers Care Linoleum Floor Installer Name Role Phone Mehran Bloom MD Primary Care Provider [phone]- [phone] Salvador Harmon MD Unavailable Reji Donald MD Unavailable [phone] Reason for Visit * Reason Comments Medication Refill Encounter Details Date Type Department Care Team (Late st Contact Info) Description 02/24/2021 Refill [facility] Medical Group - Internal Medicine [facility] [address] [place] [address] Jane Holliday, [facility] [address] [place] [address] Medication Refill Social History Tobacco Use Types [...] 08/25/2025 10:00 AM CDT [facility] [place] [address] [place] [address] Mehran Bloom MD [address] [place] [address] 10/30/2025 10:00 AM STEAM OVEN OPERATOR [facility] [address] [place] [address] Salvador Harmon MD [address] [place] [address] documented as of this encounter Visit Diagnoses Not on filedocumented in this encounter Additional Health Concerns Assessment Noted Time PHQ-9 Depression Total Score: 0 11/24/19 21 3:00 PM STEAM OVEN OPERATOR documented as of this encounter Care Teams Linoleum Floor Installer Relationship Specialty Start Date End Date Mehran Bloom MD PCP - General Internal Medicine 09/24/15 Salvador Harmon MD [address] [place] [address] Consulting Physician Pulmonary Disease 01/14/25 Reji Donald MD [address] [place] [address] Consulting Physician Neurology 04/24/25 documented as of this encounter
--- OUTSIDE RECORDS SUMMARY | 2025-07-26 09:13 | XMS_ITS | Encounter Summary ---
Author Organization [facility] Address [address] [place] [address] Phone Care Team Providers Care Roll Panner Name Role Phone Mehran Bloom MD Primary Care Provider [phone] Salvador Harmon MD Unavailable Reji Donald MD Unavailable [phone] Reason for Visit * Reason Comments Medication Refill Encounter Details Date Type Department Care Team (Late st Contact Info) Description 02/27/2021 Refill [facility] Medical Group - Internal Medicine [facility] [address] [place] [address] Mehran Bloom MD [address] [place] [address] Medication Refill Social History Tobacco Use Types [...] [facility] [place] [address] [place] [address] Mehran Bloom MD [address] [place] [address] 10/30/2025 10:00 AM STATIONARY FIREMAN [facility] [address] [place] [address] Salvador Harmon MD [address] [place] [address] documented as of this encounter Visit Diagnoses Not on filedocumented in this encounter Additional Health Concerns Assessment Noted Time PHQ-9 Depression Total Score: 0 11/24/19 21 3:00 PM STATIONARY FIREMAN documented as of this encounter Care Teams Roll Panner Relationship Specialty Start Date End Date Mehran Bloom MD PCP - General Internal Medicine 09/24/15 Salvador Harmon MD [address] [place] [address] Consulting Physician Pulmonary Disease 01/14/25 Reji Donald MD [address] [place] [address] Consulting Physician Neurology 04/24/25 documented as of this encounter
--- OUTSIDE RECORDS SUMMARY | 2025-07-26 09:13 | XMS_ITS | Clinical Summary ---
[facility] Organization [facility] Building [address] Address [address] [place] [address] Care Team Providers Care Cane Weigher Name Role Phone Mehran Bloom MD Primary Care Provider [phone]- [phone] Allergies No known active allergies Medications aspirin [...] on file Legal Sex Female 8:44 AM THERAPEUTIC RECREATION SPECIALIST Gender Identity Not on file Sexual Orientation [...] PM CDT Pulse 107 11/26/2021 9:38 AM THERAPEUTIC RECREATION SPECIALIST Temperature 36.8 C (98.3 F) 11/26/2021 9:38 AM THERAPEUTIC RECREATION SPECIALIST Respiratory Rate 20 11/26/2021 9:38 AM THERAPEUTIC RECREATION SPECIALIST Oxygen Saturation 98% 11/26/2021 9:38 AM THERAPEUTIC RECREATION SPECIALIST Inhaled Oxygen Concentration - - Weight 67.1 [...] Recently Relevant to Health Maintenance Insurance MEDICARE [facility] SUPPLEMENT RADHA BERNAL [id number] MEDICARE [facility] SUPPLEMENT RADHA BERNAL [id number] Care Teams Cane Weigher Relationship Specialty Start Date End Date Mehran Bloom MD [place] [address] [facility] - General 08/17/11
--- OUTSIDE RECORDS SUMMARY | 2025-07-26 09:13 | XMS_ITS | Encounter Summary ---
Author Organization [facility] Address [address] [place] [address] Phone Care Team Providers Care Poured Wall Foreman Name Role Phone Mehran Bloom MD Primary Care Provider [phone]- [phone] Salvador Harmon MD Unavailable Reji Donald MD Unavailable [phone] Reason for Visit * Reason Comments Medication Refill Encounter Details Date Type Department Care Team (Late st Contact Info) Description 09/21/[address] [facility] Medical Group - Internal Medicine - [place] [address] [place] [address] Mehran Bloom MD [address] [place] [address] Medication Refill Social History Tobacco Use Types [...] COVID-19? No / Unsure 09/24/2021 3:21 PM TUBE TURNER documented as of this encounter Plan of Treatment Upcoming Encounters Date Type Department Care Team (Late st Contact Info) Description 08/25/2025 10:00 AM CDT Office Visit [facility] - Primary Care - [place] [address] [place] [address] Mehran Bloom MD [address] [place] [address] 10/30/2025 10:00 AM TUBE TURNER Office Visit [facility] - Pulmonology & Sleep Medicine [facility] [address] [place] [address] Salvador Harmon MD [address] [place] [address] documented as of this encounter Visit Diagnoses Not on filedocumented in this encounter Additional Health Concerns Assessment Noted Time PHQ-9 Depression Total Score: 1 07/02/20 21 9:00 AM CDT documented as of this encounter Care Teams Poured Wall Foreman Relationship Specialty Start Date End Date Mehran Bloom MD PCP - General Internal Medicine 09/24/15 Salvador Harmon MD [address] [place] [address] Consulting Physician Pulmonary Disease 01/14/25 Reji Donald MD [address] [place] [address] Consulting Physician Neurology 04/24/25 documented as of this encounter
--- OUTSIDE RECORDS SUMMARY | 2025-07-26 09:13 | XMS_ITS | Encounter Summary ---
Author Organization [facility] Address [address] [place] [address] Phone Care Team Providers Care Site Administrator Name Role Phone Mehran Bloom MD Primary Care Provider [phone]- [phone] Salvador Harmon MD Unavailable Reji Donald MD Unavailable [phone] Reason for Visit * Reason Comments Medication Refill Encounter Details Date Type Department Care Team (Late st Contact Info) Description 04/16/2024 Refill [facility] Medical Group - Internal Medicine - [place] [address] [place] [address] Mehran Bloom MD [address] [place] [address] Medication Refill Social History Tobacco Use Types Packs/Day Years Used Date Smoking Tobacco: Never Passive Smoke Exposure: Never Smokeless Tobacco: Never Alcohol Use Standard Drinks/Week Comments Not Currently 0 (1 standard drink = 0.6 oz pur e alcohol) glass of wine rarely [facility] Utilities Answer Date Recorded In the past 12 months has [employer], gas, oil, or water company threatened [...] often do you attend chur ch or episcopalian services? More than 4 times per year 02/08/2024 Do you belong to any clubs o r organizations such as taoism groups, unions, fraternal or athletic groups, or [...] Total Score - Questions 1-9 1 01/12 [facility] - Occupational [...] place to sleep or slept in a skilled nursing (including now)? No 02/08/2024 Sexually Active Control [...] PM CDT Medication(s) ref[facility] and [facility] Chronic Medication Refill Standing Order for Pediatricand [...] 03/12/24 Office Visit Mehran Bloom MD [facility] [place] 02/27/24 Office Visit Mehran Bloom MD [facility] [place] 02/08/24 Office Visit Mehran Bloom MD [facility] [place] 08/14/23 Telemedicine Mehran Bloom MD [facility] [place] 08/07/23 Office Visit Mehran Bloom MD [facility] [place] 05/04/23 Office Visit Mehran Bloom MD [facility] [place] Showing recent visits within past 365 days and meeting all other requirements Future Appointments Date Type Provider Dept 05/14/24 Appointment [facility] future appointments within next 90 days and meeting all other requirements documented in this encounter Plan of Treatment Upcoming Encounters Date Type Department Care Team (Late st Contact Info) Description 08/25/2025 10:00 AM CDT Office Visit [facility] - Primary Care - [place] [address] [place] [address] Mehran Bloom MD [address] [place] [address] 10/30/2025 10:00 AM FISHER DIP NET Office Visit [facility] - Pulmonology & Sleep Medicine [facility] [address] [place] [address] Salvador Harmon MD [address] [place] [address] documented as of this encounter Visit Diagnoses Not on filedocumented in this encounter Additional Health Concerns Assessment Noted Time PHQ-9 Depression Total Score: 1 02/08/20 24 8:58 AM CDT documented as of this encounter Care Teams Site Administrator Relationship Specialty Start Date End Date Mehran Bloom MD PCP - General Internal Medicine 09/24/15 Salvador Harmon MD [address] [place] [address] Consulting Physician Pulmonary Disease 01/14/25 Reji Donald MD [address] [place] [address] Consulting Physician Neurology 04/24/25 documented as of this encounter
--- OUTSIDE RECORDS SUMMARY | 2025-07-26 09:13 | XMS_ITS | Encounter Summary ---
Author Organization [facility] Address [address] [place] [address] Phone Care Team Providers Care Wood Patternmaker Name Role Phone Mehran Bloom MD Primary Care Provider [phone]- [phone] Salvador Harmon MD Unavailable Reji Donald MD Unavailable [phone] Reason for Visit * Reason Comments Medication Refill Encounter Details Date Type Department Care Team (Late st Contact Info) Description 01/11/2024 Refill [facility] Medical Group - Internal Medicine - [place] [address] [place] [address] Mehran Bloom MD [address] [place] [address] Medication Refill Social History Tobacco Use Types [...] AM CST Medication([facility]) [facility] Medication Refill Standing Order for Pediatricand [...] 08/14/23 Telemedicine Mehran Bloom MD [facility] [place] 08/07/23 Office Visit Mehran Bloom MD [facility] [place] 05/04/23 Office Visit Mehran Bloom MD [facility] [place] 03/30/23 Office Visit Mehran Bloom MD [facility] [place] 03/17/23 Office Visit Jane Holliday PAC [facility] [place] Showing recent visits within past 365 days and meeting all other requirements Future Appointments Date Type Provider Dept 02/08/24 Appointment Mehran Bloom MD [facility] [place] Showing future appointments within next 90 days and meeting all other requirements OPERATIONS SPECIALIST documented in this encounter Plan of Treatment Upcoming Encounters Date Type Department Care Team (Late st Contact Info) Description 08/25/2025 10:00 AM CDT Office Visit [facility] - Primary Care - [place] [address] [place] [address] Mehran Bloom MD [address] [place] [address] 10/30/2025 10:00 AM IT OPERATIONS SPECIALIST Office Visit [facility] - Pulmonology & Sleep Medicine [facility] [address] [place] [address] Salvador Harmon MD [address] [facility] [place] [address] documented as of this encounter Visit Diagnoses Not on filedocumented in this encounter Additional Health Concerns Assessment Noted Time PHQ-9 Depression Total Score: 1 07/02/20 21 9:00 AM CDT documented as of this encounter Care Teams Wood Patternmaker Relationship Specialty Start Date End Date Mehran Bloom MD PCP - General Internal Medicine 09/24/15 Salvador Harmno MD [address] [place] [address] Consulting Physician Pulmonary Disease 01/14/25 Reji Donald MD [address] [place] [address] Consulting Physician Neurology 04/24/25 documented as of this encounter
--- OUTSIDE RECORDS SUMMARY | 2025-07-26 09:13 | XMS_ITS ---
Author Organization [facility] Address [address] [place] [address] Phone Care Team Providers Care Dental Prosthetist Name Role Phone Mehran Bloom MD Primary Care Provider [phone] Salvador Harmon MD Unavailable Reji Donald MD Unavailable [phone] OnCall Chronic Care Management Status:Identified (Enrolling) Start date:06/25/2025 Enrollment reason:Identified using claims or encounter data Related social drivers of health:Intimate Partner Violence, Social Connections, Alcohol Use, Tobacco Use, Financial Resource Strain,Depression, Stress, Physical Activity, Food Insecurity, Transportation Needs, Housing Stability, Utilities Continued Care and Services Coordination
--- OUTSIDE RECORDS SUMMARY | 2025-07-26 09:13 | XMS_ITS | Clinical Summary ---
Author Organization [facility] Address [address] [place] [address] Phone Care Team Providers Care Supervisor Cigar Processing Name Role Phone Mehran Bloom MD Primary Care Provider [phone]- [phone] Salvador Harmon MD Unavailable Reji Donald MD Unavailable [phone] Medications Acetaminophen (EQ ARTHRITIS PAIN PO) Take [...] urine 12/29/2022 Coronary artery disease invo lving [place] coronary artery of [place] heart with angina pectoris 11/24/2020 Essential hypertension, benign 05/31/2016 Other hyperlipidemia 05/31/2016 Gastroesophageal reflux disease without esophagi tis 05/31/2016 Resolved Problems Problem Noted Date Diagnosed Date Resolved Date Other chest pain 11/24/2020 08/07/2023 Community acquired bacterial pneumonia 05/31/2016 11/24/2020 Acute cystitis 05/31/2016 11/24/2020 Hypokalemia 05/31/2016 11/24/2020 Encounters Date Type Department Care Team Description 07/17/2025 [facility]phone [facility] [address] [place] [phone] Mehran Bloom MD Referral 07/15/2025 Nurse Triage [facility] Call [facility] [address] [place] [address] [phone] Mehran Bloom MD Urinary Pain 07/03/2025 Nurse Triage [facility] [address] [place] [address] [phone] Mehran Bloom MD Appointment 05/26/2025 Results Follow-Up [facility] Internal Medicine [facility] [address] [facility] [place] [address] Mehran Bloom MD MRI L-SPINE W/O CONTRAST 05/24/2025 10:30 AM CDT - 05/24/2025 11:59 PM CDT Hospital Encounter [facility] MRI [address] [place] [address] Mehran Bloom MD Discharge Disposition: Discharged to home or Selfcare 05/22/2025 10:40 AM CDT Office Visit [facility] Internal Medicine [facility] [address] [facility] [place] [address] Mehran Bloom MD Essential hypertension, benign (Primary Dx); Chronic bilateral low back pain with bilateral sciatica; Other hyperlipidemia; Coronary artery disease involving [place] coronary artery of [place] heart with angina pectoris (HCC); Gastroesophageal reflux disease without esophagitis Discharge Disposition: Discharged to home or Selfcare 05/22/2025 Travel 04/25/2025 Travel from Last 3 Months Immunizations Immunization Administration Dates Next Due Covid-19, Mrna, Lnp-s, PF, 1 00 mcg/0.5 mL Dose (Moderna) 07/07/2021,06/09/2021 Influenza Vaccine greater than 3 yrs 10/03/2018 Influenza Vaccine, Quadrivalent, PF 08/03/2022,1 11/24/2020,08/12/2020 Influenza, Quadrivalent, Adjuvanted 08/07/2023 Influenza, Trivalent, Adjuvanted, PF 08/15/2024 Pneumococcal Vaccine - 13 Valent 06/01/2016,08/0 11/2013 Pneumococcal Vaccine Adult - 23 Valent 6 [...] pur e alcohol) glass of wine rarely Clodicoities Answer Date Recorded In the past 12 months has [employer], [employer], oil, or water Send the [employer] threatened to shut off services in your [...] week 02/08/2024 How often do you attend [facility] or judaism services? More than 4 times per year 02/08/2024 Do you belong to any clubs o r organizations such as caodaism groups, unions, fraternal or athletic groups, or [...] Total Score - Questions 1-9 0 07/2025 [facility] - [...] 08/25/2025 10:00 AM CDT [facility] [place] [address] [place] [address] Mehran Bloom MD [address] [place] [address] 10/30/2025 10:00 AM LEADITE WORKER [facility] - [facility] & Sleep Medicine [facility] [address] [place] [address] Salvador Harmon MD [address] [place] [address] Health Maintenance Due Date Last Done Comments [...] Jude Acosta M.D. JOHNATHAN: JOHNATHAN Report ID: [id number] Reading Location: [place] [address] Procedure Note Jude Acosta MD - 05/26/2025 [...] Jude Acosta M.D. JOHNATHAN: JOHNATHAN Report ID: [id number] Reading Location: [id number] IMPRESSION: Constellation of spondylolisthesis, spondylosis, and degenerative disc disease of the lumbar spine as detailed level by level above. us Mehran Bloom MD IMG MR ORDERABLES Final Res ult * NEUROLOGY CONSULT (04/25/2025 12:00 AM CDT) 04/25/2025 us Provider Scan GENERIC SCAN ORDERS CONSULT Celeste young Result SCAN * [facility] BONE DENSITOMETRY AXIAL SKELETON [...] Narrative 05/01/2024 8:32 PM CDT EXAM DESCRIPTION: [facility] BONE DENSITOMETRY AXIAL SKELETON REASON FOR STUDY: 83 y/o year old F with given history of: Asymptomatic menopausal state Iron Melter/Model: PubNub (S/N [id number]) CLINICAL INFORMATION: Current height: 64 inches Maximum [...] Samy Buitrago M.D. MF: OSIEL Report ID: [id number] Reading Location: [address] Note Samy Buitrago MD - 05/01/2024 EXAM DESCRIPTION: [facility] BONE DENSITOMETRY AXIAL SKELETON REASON FOR STUDY: 83 y/o year old F with given history of: Asymptomatic menopausal state Iron Melter/Model: PubNub (S/N [id number]) CLINICAL INFORMATION: Current height: 64 inches Maximum [...] Samy Buitrago M.D. MF: OSIEL Report ID: [id number] Reading Location: [place] [address] IMPRESSION: Osteoporosis. REFERENCE: Bone mineral density: T-Score: [...] to Prevention and Treatment of Osteoporosis (http://www.nof.org/professionals/clinical-guidelines) us Mehran Bloom MD IMRaysa DEXA ORDERABLES Final R esult from Last 3 Months or Most Recently Relevant to Health Maintenance Insurance MEDICARE [facility] Advance Directives * Full Code (Latest Code Status on File) Date Activated Date Inactivated Comments 05/31/2016 8:59 AM 06/02/2016 3:06 PM CPR-Full Ariel atment: FULL ARREST: Attempt Resuscitation/CPR wit intubation and mechanical ventilation. PRE-ARREST: Use entire range of life support measures to stabilize the patient. Care Teams Supervisor Cigar Processing Relationship Specialty Start Date End Date Mehran Bloom MD PCP - General Internal Medicine 09/24/15 Salvador Harmon MD [address] [place] [address] Consulting Physician Pulmonary Disease 01/14/25 Reji Donald MD [address] [place] [address] Consulting Physician Neurology 04/24/25
[2025-07-26 09:18] VITALS: BP 178/104; PULSE 95; RESP 18; TEMP 36.2; O2SAT 100
[2025-07-26 09:30] VITALS: BP 189/97
[2025-07-26 09:42] LABS: EDUAAPPEAR Cloudy; EDUABILI Negative (Negative); EDUABLOOD 2+ (Negative); EDUACOLOR1 Yellow; EDUAGLUCOSE Negative (Negative); EDUAKETONE Negative (Negative); EDUALEUKO 3+ (Negative); EDUANITRATE Positive (Negative); EDUAPH 6.0; EDUAPROTEIN 2+ (Negative); EDUASPGRAVITY 1.020; EDUAUROBILI 0.2
--- NOTE | 2025-07-26 10:07 | ED.FEMALEGU ---
HPI - Female Genitourinary General Chief complaint: Urogenital-Female Stated complaint: uti Time Seen by Provider: 07/26/25 09:35 Source: patient, RN notes reviewed and old records reviewed Mode of arrival: ambulatory Limitations: no limitations History of Present Illness HPI Narrative: Patient presents today with a 2 day history of urinary frequency, urgency, dysuria. Denies fever, nausea or vomiting, abdominal pain or back pain. She was seen here at Urgent Care on 07/03 and 07/15 for similar symptoms and diagnosed with UTI and subsequently prescribed Augmentin and Keflex. Her urine cultures both grew back E coli with no resistance. She has not followed up with her PCP with these recurrent symptoms. Related Data Home Medications ?Medication ?Instructions ?Recorded ?Confirmed ?Last Taken ?Type aspirin 81 mg chewable tablet 81 mg PO DAILY 05/23/21 12/23/22 Unknown History (Aspirin Childrens) Held on 01/06/23. Instructions: Resume on 01/08/23. carvedilol 6.25 mg tablet 6.25 mg PO BID 05/23/21 12/23/22 Unknown History pantoprazole 40 mg tablet,delayed 40 mg PO DAILY 05/23/21 12/23/22 Unknown History release [place] 3 500 mg 2XW 12/23/22 12/23/22 Unknown History calcium 600 mg-D3 20 mcg-magnesium tablet PO DAILY 12/23/22 Unknown History 50 tm-Zy-ypzlkq-melanie-boron tablet (Calcium 600-D3 Plus (mag-zinc)) coenzyme Q10 100 mg capsule 100 mg PO DAILY 12/23/22 12/23/22 Unknown History (CoQ-10) garlic 1,000 mg capsule 1,000 mg PO DAILY 12/23/22 12/23/22 Unknown History ginkgo biloba extract-Panax 1 cap PO DAILY 12/23/22 12/23/22 Unknown History ginseng root extract 60 mg-100 mg capsule losartan 100 mg tablet 100 mg QAM 12/23/22 12/23/22 Unknown History turmeric root extract 500 mg 500 mg PO DAILY 12/23/22 12/23/22 Unknown History capsule vit C 250 mg-vit E 90 mg-zinc 40 1 tablet PO BID 12/23/22 12/23/22 Unknown History mg-copper 1 nx-iaoryn-dxiowb capsule (PreserVision AREDS-2) vitamin E 670 mg (1,000 unit) 670 mg PO DAILY 12/23/22 12/23/22 Unknown History capsule Allergies Allergy/AdvReac Type Severity Reaction Status Date / Time No Known Allergies Allergy Verified 07/26/25 09:30 [facility] Past Medical History Medical History CAD (coronary artery disease) GERD (gastroesophageal reflux disease) Hypertension High cholesterol Surgical History Surgical History History of coronary artery stent placement Social History Social History Smoking status: Never smoker Second hand tobacco smoke exposure: No Alcohol intake: never Substance use: never Substance use type: does not use Living arrangements: alone Gender identity (if verbalized by the patient): Female Spiritual care concerns: No Comments At time of signature, I have reviewed and agree with nursing past medical, surgical, social and family history unless otherwise noted. Please see nursing chart for further information. There is no relevant family history pertinent to the presenting complaint Exam Narrative: GENERAL: Well-appearing, well-nourished, and in no acute distress. HEAD: Normocephalic, atraumatic. EYES: EOMI. No redness or drainage. Conjunctivae normal. ENT: Mucous membranes pink and moist. NECK: Normal AROM. CHEST: No respiratory distress. Clear to auscultation. HEART: Regular rate and rhythm. No murmur appreciated. ABDOMEN: Soft, nondistended, normal active bowel sounds.+ mild tenderness in suprapubic area without rebound or guarding. EXTREMITIES: Normal range of motion. No edema. SKIN: Warm, dry, no rash. Capillary refill normal. Normal skin turgor. NEURO: No focal deficits. Alert and oriented x3. Gait steady. PSYCH: Normal affect. No signs of depression or anxiety. Course Course Level of Care: [facility] Care Visit Vital Signs Vital signs: Vital Signs Temperature 97.2 F L 07/26/25 09:18 Pulse Rate 95 07/26/25 09:18 Respiratory Rate 18 07/26/25 09:18 Blood Pressure 178/104 H 07/26/25 09:18 Pulse Oximetry 100 07/26/25 09:18 Oxygen Delivery Room Air 07/26/25 09:18 Temperature 97.2 F L 07/26/25 09:18 Pulse Rate 95 07/26/25 09:18 Respiratory Rate 18 07/26/25 09:18 Blood Pressure 189/97 H 07/26/25 09:30 Pulse Oximetry 100 07/26/25 09:18 Oxygen Delivery Room Air 07/26/25 09:18 Reviewed MDM - Female Genitourinary MDM Narrative Medical decision making narrative: 84-year-old female patient presents today with recurrent UTI symptoms to include frequency, urgency, and dysuria x2 days. She has been treated for UTI with Augmentin and Keflex on 07/03 and 07/15 respectively. Urine cultures have grown back E coli with no resistance. Exam today was positive for mild suprapubic tenderness but is otherwise normal. Urinalysis shows 2+ protein, 2+ blood, 3+ leukocytes, and positive nitrites. Urine culture pending. Will treat today with cefdinir, but highly recommend patient follow-up with her PCP due to recurrence despite treating with antibiotics known to be successful based on culture. States she can get an appointment this week. Blood pressure elevated upon arrival. Patient takes carvedilol and losartan. Patient agrees with plan. Anticipatory guidance given. Differential Diagnosis Differential diagnosis: Likely urinary tract infection, cystitis and other (Pyelonephritis) Lab Data Attestation: I reviewed the patient's lab results. Labs: Lab Results 07/26/25 Range/Units 09:39 POC Urine Color Yellow POC Urine Clarity Cloudy POC Urine pH 6.0 POC Ur Specif [place] 1.020 POC Urine Protein 2+ (Negative) POC Ur Glucose (UA) Negative (Negative) POC Urine Ketones Negative (Negative) POC Urine Blood 2+ (Negative) POC Urine Nitrite Positive (Negative) POC Urine Bilirubin Negative (Negative) POC Urine Urobilinogen 0.2 POC U Leukocyte Esteras 3+ (Negative) Critical Care Time Critical Care Time Critical Care Time: No Discharge Plan Discharge Clinical Impression: Urinary tract infection Qualifiers: Urinary tract infection type: acute cystitis Hematuria presence: with hematuria Qualified Code(s): N30.01 - Acute cystitis with hematuria Patient Disposition: Home Condition: Stable Instructions: Antibiotic Form, Urinary Tract Infection in Older Adults (ED) Additional Instructions: Your urine shows infection today. Take the cefdinir as prescribed until gone. Your urine will be sent of for a culture to identify what type of bacteria is causing your infection. If the culture shows that your medication will not get rid of your infection, you will be notified and a new antibiotic will be called in for you. If your symptoms worsen to include fever, sweats, chills, nausea, vomiting, severe abdominal or back pain, please go to the ER for further evaluation. Please follow-up with your doctor this week due to your frequent UTIs recently. Your blood pressure was elevated above 120/80 today at Urgent Care. This puts you above the threshold for follow up. Please schedule a followup visit with your personal physician as soon as possible, for further evaluation and treatment. Even blood pressure exceeding 120/80 may indicate pre-hypertension. Patient Language: Russian Prescriptions: New cefdinir 300 mg capsule 300 mg PO Q12H 7 Days Qty: 14 0RF No Action carvedilol 6.25 mg tablet 6.25 mg PO BID pantoprazole 40 mg tablet,delayed release (DR/EC) 40 mg PO DAILY aspirin [Aspirin Childrens] 81 mg Tablet,Chewable 81 mg PO DAILY vitamin E 670 mg (1,000 unit) Capsule 670 mg PO DAILY garlic 1,000 mg Capsule 1,000 mg PO DAILY losartan 100 mg tablet 100 mg QAM coenzyme Q10 [CoQ-10] 100 mg Capsule 100 mg PO DAILY ginkgo biloba-Panax ginseng rt 60-100 mg Capsule 1 cap PO DAILY turmeric root extract 500 mg Capsule 500 mg PO DAILY PreserVision AREDS-2 250-90-40-1 mg Capsule 1 tablet PO BID Ca-D3-mag wl-owab-oly-nell-bor [Calcium 600-D3 Plus (mag-zinc)] 600 mg calcium- 20 mcg-50 mg Tablet PO DAILY Mililani 3 500 mg 2XW docusate sodium [Colace] 100 mg capsule 100 mg PO BID Qty: 60 0RF tramadol 50 mg tablet 50 mg PO Q6H PRN (Reason: pain) Qty: 20 0RF Follow-up/Referrals: Wolf,Mehran Adames MD [Primary Care Provider, Unknown] Time of Disposition: 10:04
== END 2025-07-26 10:05 | disposition home or self-care (01) ==
PROVIDERS: Emergency Provider Nurse Practitioner; PCP Internal Medicine
DX: N30.01 Acute cystitis with hematuria (principal); I10 Essential (primary) hypertension; E78.00 Pure hypercholesterolemia, unspecified; I25.10 Atherosclerotic heart disease of native coronary artery without angina pectoris; K21.9 Gastro-esophageal reflux disease without esophagitis; Z79.82 Long term (current) use of aspirin
CPT/HCPCS: 81003; 87077; 87086; 87186; 99213; G0463

== ENCOUNTER 2025-10-01 10:57 | Emergency (ER) | payer MEDICARE, SELFPAY ==
--- NOTE | ~2025-10-01 | XR_ITS ---
EXAMINATION: XR chest 2V DATE: 10/01/2025 11:38 INDICATION: Cough with crackles in the right lower lung TECHNIQUE: PA and lateral views of the chest were obtained. COMPARISON: None FINDINGS: Mild interstitial opacities at the posterior aspect of the bilateral lower lung zones. No focal airspace opacities, pleural effusion or pneumothorax. The cardiomediastinal silhouette is normal. Mild thoracolumbar kyphosis with severe spondylosis. IMPRESSION: 1. Increased interstitial pattern at the dependent lower lung zones which could represent mild pulmonary edema, atelectasis or pneumonia. Reviewed, dictated and finalized at location A. ICE DESK ANALYST
[2025-10-01 11:01] VITALS: BP 151/96; PULSE 90; RESP 16; TEMP 36.5; O2SAT 98
--- NOTE | 2025-10-01 11:31 | ED.URI ---
HPI - URI/Sore Throat General Chief Complaint: Upper Respiratory Infection Stated Complaint: cough Time Seen by Provider: 10/01/25 11:23 Source: patient and RN notes reviewed Mode of arrival: ambulatory Limitations: no limitations History of Present Illness HPI Narrative: 84 year old female patient presents today complaining of a 1 week history of cough, congestion, fatigue, and shortness of breath with exertion. Denies fever. She has tried tylenol, mucinex, and robitussin with mild improvement. No history of asthma or COPD. She is a nonsmoker. Related Data Home Medications ?Medication ?Instructions ?Recorded ?Confirmed ?Last Taken ?Type aspirin 81 mg chewable tablet 81 mg PO DAILY 05/23/21 12/23/22 Unknown History (Aspirin Childrens) Held on 01/06/23. Instructions: Resume on 01/08/23. carvedilol 6.25 mg tablet 6.25 mg PO BID 05/23/21 12/23/22 Unknown History pantoprazole 40 mg tablet,delayed 40 mg PO DAILY 05/23/21 12/23/22 Unknown History release calcium 600 mg-D3 20 mcg-magnesium tablet PO DAILY 12/23/22 Unknown History 50 vm-Hs-ndnzhe-melanie-boron tablet (Calcium 600-D3 Plus (mag-zinc)) coenzyme Q10 100 mg capsule 100 mg PO DAILY 12/23/22 12/23/22 Unknown History (CoQ-10) garlic 1,000 mg capsule 1,000 mg PO DAILY 12/23/22 12/23/22 Unknown History losartan 100 mg tablet 100 mg QAM 12/23/22 12/23/22 Unknown History turmeric root extract 500 mg 500 mg PO DAILY 12/23/22 12/23/22 Unknown History capsule vit C 250 mg-vit E 90 mg-zinc 40 1 tablet PO BID 12/23/22 12/23/22 Unknown History mg-copper 1 tu-ezuemm-kizfah capsule (PreserVision AREDS-2) vitamin E 670 mg (1,000 unit) 670 mg PO DAILY 12/23/22 12/23/22 Unknown History capsule atorvastatin 40 mg tablet mg 10/01/25 Unknown History Allergies Allergy/AdvReac Type Severity Reaction Status Date / Time No Known Allergies Allergy Verified 10/01/25 11:12 [facility] Past Medical History Medical History CAD (coronary artery disease) GERD (gastroesophageal reflux disease) Hypertension High cholesterol Surgical History Surgical History History of coronary artery stent placement Social History Social History Smoking status: Never smoker Second hand tobacco smoke exposure: No Alcohol intake: never Substance use: never Substance use type: does not use Living arrangements: alone Gender identity (if verbalized by the patient): Female Spiritual care concerns: No Comments At time of signature, I have reviewed and agree with nursing past medical, surgical, social and family history unless otherwise noted. Please see nursing chart for further information. There is no relevant family history pertinent to the presenting complaint Exam Narrative: GENERAL: Mild ill-appearing, well-nourished, and in no acute distress. HEAD: Normocephalic, atraumatic. EYES: EOMI. No redness or drainage. Conjunctivae normal. ENT: Mucous membranes pink and moist. Nares congested with rhinorrhea. TMs normal bilaterally. Throat normal. Uvula midline. NECK: Normal AROM. Supple. No lymphadenopathy. CHEST: No respiratory distress. Mild crackling in RLL. Harsh cough noted. HEART: Regular rate and rhythm. No murmur appreciated. EXTREMITIES: Normal range of motion. No edema. SKIN: Warm, dry, no rash. Capillary refill normal. Normal skin turgor. NEURO: No focal deficits. Alert and oriented x3. Gait steady. PSYCH: Normal affect. No signs of depression or anxiety. Course Course Level of Care: Express Care Visit Vital Signs Vital signs: Vital Signs Temperature 97.7 F 10/01/25 11:01 Pulse Rate 90 10/01/25 11:01 Respiratory Rate 16 10/01/25 11:01 Blood Pressure 151/96 H 10/01/25 11:01 Pulse Oximetry 98 10/01/25 11:01 Oxygen Delivery Room Air 10/01/25 11:01 Temperature 97.7 F 10/01/25 11:01 Pulse Rate 90 10/01/25 11:01 Respiratory Rate 16 10/01/25 11:01 Blood Pressure 151/96 H 10/01/25 11:01 Pulse Oximetry 98 10/01/25 11:01 Oxygen Delivery Room Air 10/01/25 11:01 Reviewed MDM - URI/Sore Throat MDM Narrative Medical decision making narrative: 84 year old female patient presents today complaining of a 1 week history of cough, congestion, fatigue, and shortness of breath with exertion. Denies fever. She has tried tylenol, mucinex, and robitussin with mild improvement. No history of asthma or COPD. She is a nonsmoker. Upon exam, patient is mildly ill appearing with nasal congestion and crackling in the right lower lobe. Chest x-ray shows Increased interstitial pattern at the dependent lower lung zones which could represent mild pulmonary edema, atelectasis or pneumonia.Patient will be treated for developing pneumonia with a course of Augmentin. Declines prescription for cough medicine. Vital signs stable. Patient agrees with plan. Anticipatory guidance given. Differential Diagnosis Differential diagnosis: Likely upper respiratory infection, sinusitis, viral infection, bronchitis and other (pneumonia) Imaging Data Radiologist's impression: ITS Impressions Chest X-Ray 10/01/25 11:42 IMPRESSION: 1. Increased interstitial pattern at the dependent lower lung zones which could represent mild pulmonary edema, atelectasis or pneumonia. Critical Care Time Critical Care Time Critical Care Time: No Discharge Plan Discharge Clinical Impression: Pneumonia Qualifiers: Pneumonia type: due to unspecified organism Laterality: bilateral Lung location: lower lobe of lung Qualified Code(s): J18.9 - Pneumonia, unspecified organism Patient Disposition: Home Condition: Stable Instructions: Antibiotic Form, Community Acquired Pneumonia (DC) Additional Instructions: Your x-ray showed pneumonia in the lower part of both lungs. Please start the Augmentin and take as directed. Continue axtq-crz-wjovadk medication for symptoms as needed. Follow-up with your PCP next week if symptoms are not improving. Go to the ER immediately if symptoms worsen. Patient Language: Gabonese Prescriptions: New amoxicillin-pot clavulanate 875-125 mg tablet 1 tablet PO Q12H 7 Days Qty: 14 0RF No Action carvedilol 6.25 mg tablet 6.25 mg PO BID pantoprazole 40 mg tablet,delayed release (DR/EC) 40 mg PO DAILY aspirin [Aspirin Childrens] 81 mg Tablet,Chewable 81 mg PO DAILY atorvastatin 40 mg tablet vitamin E 670 mg (1,000 unit) Capsule 670 mg PO DAILY garlic 1,000 mg Capsule 1,000 mg PO DAILY losartan 100 mg tablet 100 mg QAM coenzyme Q10 [CoQ-10] 100 mg Capsule 100 mg PO DAILY turmeric root extract 500 mg Capsule 500 mg PO DAILY PreserVision AREDS-2 250-90-40-1 mg Capsule 1 tablet PO BID Ca-D3-mag fy-oxfa-hxx-nell-bor [Calcium 600-D3 Plus (mag-zinc)] 600 mg calcium- 20 mcg-50 mg Tablet PO DAILY docusate sodium [Colace] 100 mg capsule 100 mg PO BID Qty: 60 0RF Follow-up/Referrals: Wolf,Mehran Adames MD [Primary Care Provider, Unknown] Time of Disposition: 12:00
--- OUTSIDE RECORDS SUMMARY | 2025-10-01 16:00 | XMS_ITS | Encounter Summary ---
Author Organization [facility] Address [address] [place] [id number] Phone Care Team Providers Care Security Systems Sales Representative Name Role Phone Mehran Bloom MD Primary Care Provider [phone] Salvador Harmon MD Unavailable Reji Donald MD Unavailable [phone] Reason for Visit * Reason Comments Medication Refill Encounter Details Date Type Department Care Team (Late Contact Info) Description 04/12/2022 Refill [facility] - Internal Medicine [facility] [address] [place] [phone] Mehran Bloom MD [address] [place] [address] Medication Refill Social History Tobacco Use Types [...] Encounters Date Type Department Care Team (Late Contact Info) Description 10/30/2025 10:00 AM SOURCER Office Visit [facility] - Pulmonology & Sleep Medicine [facility] [address] [place] [address] Salvador Harmon MD [address] [place] [address] 02/26/2026 9:40 AM CDT Office Visit [facility] - Primary Care - [place] [address] [place] [id number] Mehran Bloom MD [address] [place] [address] documented as of this encounter Visit Diagnoses Not on filedocumented in this encounter Additional Health Concerns Assessment Noted Time PHQ-9 Depression Total Score: 1 07/02/20 21 9:00 AM CDT documented as of this encounter Care Teams Security Systems Sales Representative Relationship Specialty Start Date End Date Mehran Bloom MD PCP - General Internal Medicine 09/24/15 Salvador Harmon MD [address] [place] [address] Consulting Physician Pulmonary Disease 01/14/25 Reji Donald MD [address] [place] [address] Consulting Physician Neurology 04/24/25 documented as of this encounter
--- OUTSIDE RECORDS SUMMARY | 2025-10-01 16:00 | XMS_ITS | Encounter Summary ---
Author Organization [facility] Address [address] [place] [address] Phone Care Team Providers Care Manager Demand Name Role Phone Mehran Bloom MD Primary Care Provider [phone] Salvador Harmon MD Unavailable Reji Donald MD Unavailable [phone] Reason for Visit * Reason Comments Medication Refill Encounter Details Date Type Department Care Team (Late st Contact Info) Description 02/27/2021 Refill [facility] - Internal Medicine [facility] [address] [place] [address] Mehran Bloom MD [address] [place] [address] Medication Refill Social History Tobacco Use Types [...] Care Team (Late st Contact Info) Description 10/30/2025 10:00 AM QUALITY ASSURANCE QA LAB TECHNICIAN [facility] [address] [place] [phone] Salvador Harmon MD [address] [place] [address] 02/26/2026 9:40 AM CDT Office Visit [facility] - Primary Care - [place] [address] [place] [phone] Mehran Bloom MD [address] [place], [place] [id number] documented as of this encounter Visit Diagnoses Not on filedocumented in this encounter Additional Health Concerns Assessment Noted Time PHQ-9 Depression Total Score: 0 11/24/19 21 3:00 PM QUALITY ASSURANCE QA LAB TECHNICIAN documented as of this encounter Care Teams Manager Demand Relationship Specialty Start Date End Date Mehran Bloom MD PCP - General Internal Medicine 09/24/15 Salvador Harmon MD [address] [place] [address] Consulting Physician Pulmonary Disease 01/14/25 Reji Donald MD [address] [place] [phone] Consulting Physician Neurology 04/24/25 documented as of this encounter
--- OUTSIDE RECORDS SUMMARY | 2025-10-01 16:00 | XMS_ITS | Encounter Summary ---
Author Organization [facility] Address [address] [place] [address] Phone Care Team Providers Care Glass Vial Filler Name Role Phone Mehran Bloom MD Primary Care Provider [phone] Salvador Harmon MD Unavailable Reji Donald MD Unavailable [phone] Reason for Visit * Reason Onset Date Comments Advice Only 10/01/2025 Cough 10/01/2025 Nasal Congestion 10/01/2025 Encounter Details Date Type Department Care Team (Late st Contact Info) Description 10/01/2025 Telephone [facility] [address] [place] [address] Mehran Bloom MD [address] [place] [address] Advice Only; Cough; Nasal Congestion Social History Tobacco Use Types Packs/Day Years Used Date Smoking Tobacco: Never Passive Smoke Exposure: Never Smokeless Tobacco: Never Alcohol Use Standard Drinks/Week Comments Not Currently 0 (1 standard drink = 0.6 oz pur e alcohol) glass of wine rarely [facility] Utilities Answer Date Recorded In the past 12 months has [employer], gas, oil, or water company threatened to [...] often do you attend chur ch or restorationism services? More than 4 times per year 02/08/2024 Do you belong to any clubs o r organizations such as judaism groups, unions, fraternal or athletic groups, or [...] Total Score - Questions 1-9 0 07/2025 [facility] - Occupational [...] place to sleep or slept in a fpc (including now)? No 02/08/2024 Sexually Active Control [...] Telephone Encounter - Jammie Cedeño RN - 10/01/2025 9:50 AM CST Patient is aware and verbalizes understanding. WINDER * Telephone Encounter - Mehran Bloom MD - 10/01/2025 9:41 AM COMB WINDER Pt needs to be seen at urgent care or ov. WINDER * Telephone Encounter - Paz Mancilla RN - 10/01/2025 9:27 AM CST Situation: Advice only, cough, sneezing Background: Patient contacting PCP office. Assessment: Patient reporting the the cough and sneezing symptoms have continued, today is day 13. Patient states there has been some improvement to the symptoms, although they still persist. Patient has been drinking plenty of fluids and taking robitussin DM and mucinex with some relief. Please refer to triage notes on 09/23/25, patient confirmed the symptoms are all still present. Patient is asking for providers advice on if there is anything else she should try. Patient states she would prefer to not have an appointment, but will if provider recommends a visit. Recommendation: Please advise and notify patient of recommendations. Encounter routed to provider to notify. WINDER documented in this encounter Plan of Treatment Upcoming Encounters Date Type Department Care Team (Late st Contact Info) Description 10/30/2025 10:00 AM COMB WINDER Office Visit [facility] - Pulmonology & Sleep Medicine [facility] [address] [place] [phone] Salvador Harmon MD [address] [place] [address] 02/26/2026 9:40 AM CDT Office Visit [facility] - Primary Care - [place] [address] [place] [address] Mehran Bloom MD [address] [place] [address] documented as of this encounter Visit Diagnoses Not on filedocumented in this encounter Additional Health Concerns Assessment Noted Time PHQ-9 Depression Total Score: 0 11/21/19 25 10:00 AM COMB WINDER documented as of this encounter Care Teams Glass Vial Filler Relationship Specialty Start Date End Date Mehran Bloom MD PCP - General Internal Medicine 09/24/15 Salvador Harmon MD [address] [place] [address] Consulting Physician Pulmonary Disease 01/14/25 Reji Donald MD [address] [place] [address] Consulting Physician Neurology 04/24/25 documented as of this encounter
--- OUTSIDE RECORDS SUMMARY | 2025-10-01 16:00 | XMS_ITS | Clinical Summary ---
Author Organization [facility] Address [address] [place] [address] Phone Care Team Providers Care Financial Reporting Consultant Name Role Phone Mehran Bloom MD Primary Care Provider Salvador Harmon MD Unavailable Reji Donald MD Unavailable [phone] Allergies No known active allergies Medications Acetaminophen (EQ ARTHRITIS PAIN PO) Take 2 Tabs by mouth daily. Active Ascorbic Acid (VITAMIN C PO) Take 1 Tab by mouth daily. Active atorvastatin (LIPITOR) 40 MG Tablet Take 1 Tablet by mouth nightly. 90 Tablet 1 5 Active pantoprazole (PROTONIX) 40 MG Tablet Delayed Response TAKE ONE TABLET BY MOUTH EVERY DAY 90 Tablet 5 Active carvedilol (COREG) 6.25 MG Tablet Take 1 Tablet by mouth 2 times daily. 180 Tablet 1 5 Active losartan (COZAAR) 100 MG Tablet TAKE 1 TABLET BY MOUTH DAILY. 90 Tablet 1 5 Active losartan (COZAAR) 100 MG Tablet TAKE 1 TABLET BY MOUTH DAILY. 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 05/14/2024 Stress incontinence of urine 12/29/2022 Coronary artery disease invo lving miami coronary artery of miami heart with angina pectoris 11/24/2020 Essential hypertension, benign 05/31/2016 Other hyperlipidemia 05/31/2016 Gastroesophageal reflux disease without esophagi tis 05/31/2016 Resolved Problems Problem Noted Date Diagnosed Date Resolved Date Other chest pain 11/24/2020 08/07/2023 Community acquired bacterial pneumonia 05/31/2016 11/24/2020 Acute cystitis 05/31/2016 11/24/2020 Hypokalemia 05/31/2016 11/24/2020 Encounters Date Type Department Care Team Description 10/01/2025 [facility]phone [facility] [address] [place] [phone] Mehran Bloom MD Advice Only; Cough; Nasal Congestion 09/23/2025 Nurse Triage [facility] [address] [place] [phone] Mehran Bloom MD Cough 09/17/2025 Refill [facility] Internal Medicine [facility] [address] [place] [address] Mehran Bloom MD Medication Refill 08/25/2025 10:00 AM CDT Office Visit [facility] [place] 2[place] - [address] [place] [address] Mehran Bloom MD Essential hypertension, benign (Primary Dx); Encounter for immunization; Other hyperlipidemia; Chronic pain of right ankle; Spinal stenosis of lumbar region without neurogenic claudication Discharge Disposition: Discharged to home or Selfcare 08/25/2025 Travel 07/31/2025 Telephone [facility] [place] 2[place] [address] [place] [address] Mehran Bloom MD 07/29/2025 Refill [facility] Internal [facility] [address] [place] [address] Mehran Bloom MD Medication Refill 07/17/2025 Telephone [facility] [address] [place] [phone] Mehran Bloom MD Referral 07/15/2025 Nurse Triage [facility] [address] [place] [phone] Mehran Bloom MD Urinary Pain 07/03/2025 Nurse Triage [facility] [address] [place] [address] Mehran Bloom MD Appointment from Last 3 Months Immunizations Immunization Administration Dates Next Due Covid-19, Mrna, Lnp-s, PF, 1 00 mcg/0.5 mL Dose (Moderna) 07/07/2021,06/09/2021 Influenza Vaccine greater than 3 yrs 10/03/2018 Influenza Vaccine, Quadrivalent, PF 08/03/2022,1 11/24/2020,08/12/2020 Influenza, Quadrivalent, Adjuvanted 08/07/2023 Influenza, Trivalent, Adjuvanted, PF 08/25/2025, 08/15/2024 Pneumococcal Vaccine - 13 Valent 06/01/2016,08/0 11/2013 Pneumococcal Vaccine Adult - 23 Valent 6 Family History Medical History Relation Name Comments Congestive Heart Failure Father Heart Attack Father Parkinsonism Mother Relation Name Status Comments Brother Father Mother Social History Tobacco Use Types Packs/Day Years Used Date Smoking Tobacco: Never Passive Smoke Exposure: Never Smokeless Tobacco: Never Tobacco Cessation:Counseling Given: No Alcohol Use Standard Drinks/Week Comments Not Currently 0 (1 standard drink = 0.6 oz pur e alcohol) glass of wine rarely [facility] Utilities Answer Date Recorded In the past 12 months has [employer], gas, oil, or water company threatened to [...] week 02/08/2024 How often do you attend [facility] or mormon services? More than 4 times per year 02/08/2024 Do you belong to any clubs o r organizations such as mandaen groups, unions, fraternal or athletic groups, or [...] Total Score - Questions 1-9 0 07/2025 [facility] of Occupat ional Health - Occupational Stress [...] place to sleep or slept in a assisted (including now)? No 02/08/2024 Sexually Active Control [...] Sign Reading Time Taken Comments Blood Pressure 130/74 08/25/2025 10:03 AM CDT Pulse 56 08/25/2025 10:03 AM CDT Temperature 36.5 C (97.7 F) 08/25/2025 10:03 AM CDT Respiratory Rate 14 04/17/2025 10:40 AM CDT Oxygen Saturation 98% 08/25/2025 10:03 AM CDT Inhaled Oxygen Concentration - - Weight 71.7 kg (158 lb) 08/25/2025 10:03 AM CDT Height 162.6 cm (5' 4) 08/25/2025 10:03 AM CDT Body Mass Index 27.12 08/25/2025 10:03 AM CDT Plan of Treatment Upcoming Encounters Date Type Department Care Team (Late st Contact Info) Description 10/30/2025 10:00 AM BLOCKER POLISHING Office Visit [facility] - Pulmonology & Sleep Medicine [facility] [address] [place] [address] Salvador Harmon MD [address] [place] [phone] 02/26/2026 9:40 AM CDT Office Visit [facility] - Primary Care - [place] [address] [place] [address] Mehran Bloom MD [address] [place] [phone] Health Maintenance Due Date Last Done Comments Hepatitis C Virus (HCV) Screening 1940 TdaP Immunization 1940 Varicella Immunization (1 of 2 - 13+ 2-dose series) 1954 Respiratory Syncytial Virus (RSV) Immunization (Adult) (1 - 1-dose 75+ series) 2016 Medicare Subsequent AWV [id number] 07/04/2023 07/04/2022, 07/02/2021 SARS-COV-2 Immunization ( - season) 2025 07/07/2021, 06/09/2021 DEXA Bone Density 05/01/2026 05/01/2024, , 08/10/2017 Pneumococcal Immunization (50+ years) Discontinued 06/01/2016, 06/01/2016, 06/13/2014 Pneumococcal Immunization Combined Discontinued 06/01/2016, 06/01/2016, 06/13/2014 Zoster Immunization Completed 07/23/2021, Influenza Immunization Completed , 08/15/2024, 08/07/2023, Additional history exists Hepatitis B Immunization Aged Out No longer [...] Procedure Name Priority Date/Time Associated Diagnosis Comments URINALYSIS (UA) RANDOM 07/26/2025 12:00 AM CDT CULTURE, URINE 07/26/2025 12:00 AM CDT CULTURE, URINE 07/26/2025 12:00 AM CDT URINALYSIS (UA) RANDOM 07/15/2025 12:00 AM CDT URINALYSIS (UA) RANDOM 07/03/2025 12:00 AM CDT CULTURE, URINE 07/03/2025 12:00 AM CDT ELISSA BONE DENSITOMETRY AXIAL SKELETON Routine 05/01/2024 1:49 PM CDT Asymptomatic menopausal state from Last 3 Months or Most Recently Relevant to Health Maintenance Results * URINALYSIS (UA) RANDOM (07/26/2025 12:00 AM CDT) Only the most recent of3 resultswithin the time period is included. 07/26/2025 us Provider Scan URINE ORDERABLES Final Result Performing Organization Address [facility] de Phone Number SCAN * CULTURE, URINE (07/26/2025 12:00 AM CDT) Only the most recent of3 resultswithin the time period is included. 07/26/2025 us Provider Scan MICROBIOLOGY - GENERAL ORDERABLE S Final Result Performing Organization Address [facility] de Phone Number SCAN * [facility] BONE DENSITOMETRY AXIAL SKELETON (05/01/2024 1:49 PM [...] Narrative 05/01/2024 8:32 PM CDT EXAM DESCRIPTION: [facility] BONE DENSITOMETRY AXIAL SKELETON REASON FOR STUDY: 83 y/o year old F with given history of: Asymptomatic menopausal state Shirt Marker/Model: Snapjoy (S/N [id number]) CLINICAL INFORMATION: Current height: 64 inches Maximum [...] Samy Buitrago M.D. MF: OSIEL Report ID: [id number] Reading Location: [id number] [facility] Note Samy Buitrago MD - 05/01/2024 EXAM DESCRIPTION: [facility] BONE DENSITOMETRY AXIAL SKELETON REASON FOR STUDY: 83 y/o year old F with given history of: Asymptomatic menopausal state Shirt Marker/Model: Snapjoy (S/N [id number]) CLINICAL INFORMATION: Current height: 64 inches Maximum [...] Samy Buitrago M.D. MF: OSIEL Report ID: [id number] Reading Location: [place] [address] IMPRESSION: Osteoporosis. REFERENCE: Bone mineral density: T-Score: [...] and Treatment of Osteoporosis (http://www.nof.org/professionals/clinical-guidelines) us Mehran K Bloom MD IMG DEXA ORDERABLES Final R esult from Last 3 Months or Most Recently Relevant to Health Maintenance Insurance MEDICARE [facility] Advance Directives * Full Code (Latest Code Status on File) Date Activated Date Inactivated Comments 05/31/2016 8:59 AM 06/02/2016 3:06 PM CPR-Full Ariel atment: FULL ARREST: Attempt Resuscitation/CPR wit intubation and mechanical ventilation. PRE-ARREST: Use entire range of life support measures to stabilize the patient. Care Teams Financial Reporting Consultant Relationship Specialty Start Date End Date Mehran Bloom MD PCP - General Internal Medicine 09/24/15 Salvador Harmon MD [address] [place] [address] Consulting Physician Pulmonary Disease 01/14/25 Reji Donald MD [address] [place] [address] Consulting Physician Neurology 04/24/25
--- OUTSIDE RECORDS SUMMARY | 2025-10-01 16:00 | XMS_ITS | Clinical Summary ---
[facility] Organization [facility] Address [address] [place] [address] Care Team Providers Care Incubator Operator Name Role Phone Mehran Bloom MD Primary Care Provider [phone] Allergies No known active allergies Medications aspirin [...] Active Additional Information Patient not taking.Reported on 07/31/2025 losartan potassium (LOSARTAN ORAL) Take by mouth [...] vagina one time. 5 g 2 Active Additional Information Patient not taking.Reported on 07/31/2025 Active Problems Problem Noted Date Diagnosed Date Vaginal bleeding 12/17/2014 Overview (02/17/2017): Vaginal bleeding Gastroesophageal reflux disease 04/01/2014 Overview (02/17/2017): GERD Hypertension 03/29/2014 Overview (02/16/2017): Hypertension Hypercholesterolemia 03/29/2014 Overview (02/17/2017): Hypercholesteremia Encounters Date Type Department Care Team Description 07/31/2025 1:30 PM CDT Office Visit [facility] [address] [place] [address] Elizabeth Chen MD Recurrent UTI (Primary Dx); Inclusion cyst of vulva from Last 3 Months Surgical History Surgery Date Site/Laterality Comments OTHER SURGICAL HISTORY Cholecystitis: Cholecystectomy OTHER SURGICAL HISTORY heart attack: stent placement OTHER SURGICAL HISTORY 11/13/1969 - 11/12/1970 : vaginal forceps OTHER SURGICAL HISTORY 11/13/1970 - 11/12/1971 : vaginal forceps OTHER SURGICAL HISTORY Size 4 cube pessary CHOLECYSTECTOMY APPENDECTOMY CARDIAC STENT PLACEMENT CYSTOCELE REPAIR 11/13/2022 - 11/12/2023 Medical History Medical History Date Comments Hx [...] on file Legal Sex Female 8:44 AM MANAGER LIFE INSURANCE Gender Identity Not on file Sexual Orientation Not on file Obstetrics History Para Term AB IAB SAB Ectopic Multiple Livin g Live Births 2 2 2 2 2 Date Outcome GA Total Labor Labor/2nd/3rd Weight Sex Type Anes PTL Omaira A1 A5 Name Clin 1970 Term Vag-S pont Living 1971 Term Vag-S pont Living Last Filed Vital Signs Vital Sign Reading Time Taken Comments Blood Pressure 138/72 07/31/2025 1:15 PM CDT Pulse 107 11/26/2021 9:38 AM MANAGER LIFE INSURANCE Temperature 36.8 C (98.3 F) 11/26/2021 9:38 AM MANAGER LIFE INSURANCE Respiratory Rate 20 11/26/2021 9:38 AM MANAGER LIFE INSURANCE Oxygen Saturation 98% 11/26/2021 9:38 AM MANAGER LIFE INSURANCE Inhaled Oxygen Concentration - - Weight 71.2 kg (157 lb) 07/31/2025 1:15 PM CDT Height 152.4 cm (5') 07/31/2025 1:15 PM CDT Body Mass Index 30.66 07/31/2025 1:15 PM CDT Plan of Treatment Health Maintenance Due Date Last Done Comments Depression Screening 1941 Fall Risk Assessment 1941 DTaP/Tdap/Td Vaccine (1 - Tdap) 1952 Hepatitis B Screening 1959 Zoster Vaccine (1 of 2) 1991 Well Visit 65+ 2006 Covid-19 Vaccine (3 - 2024-2 6 season) 2025 07/07/2021, 06/09/2021 Influenza Vaccine (#1) 2025 , 08/03/2022, 09/24/2021, Additional history exists Osteoporosis Screening-Bone Density Scan 05/01/2026 05/01/2024, 05/01/2024, 07/29/2021, Additional history exists Pneumococcal vaccine 65+ Completed [...] Body N/A Radiographic Miriam ging Jenn Kamara LEAD RETAIL SALES ASSOCIATE IMG DXA PROCEDURES Final Result from Last 3 Months or Most Recently Relevant to Health Maintenance Insurance MEDICARE [facility] SUPPLEMENT MEDICARE [facility] MCR SUPPLEMENT [facility] OPTIONS PPO Care Teams Incubator Operator Relationship Specialty Start Date End Date Mehran Bloom MD [address] [place] [address] PCP - General 08/17/11
--- OUTSIDE RECORDS SUMMARY | 2025-10-01 16:01 | XMS_ITS | Encounter Summary ---
Author Organization [facility] Address [address] [place] [address] Phone Care Team Providers Care Loan Underwriter Name Role Phone Mehran Bloom MD Primary Care Provider [phone] Salvador Harmon MD Unavailable Reji Donald MD Unavailable [phone] Reason for Visit * Reason Comments Medication Refill Encounter Details Date Type Department Care Team (Late st Contact Info) Description 02/11/2021 Refill [facility] [address] [place] [address] Mehran Bloom MD [address] [place] [address] Medication Refill Social History Tobacco Use Types [...] st Contact Info) Description 10/30/2025 10:00 AM CARPET INSTALLER [facility] [address] [place] [phone] Salvador Harmon MD [address] [place] [address] 02/26/2026 9:40 AM CDT Office Visit [facility] Primary Care - [place] [address] [place] [phone] Mehran Bloom MD [address] [place], [place] [phone] documented as of this encounter Visit Diagnoses Not on filedocumented in this encounter Additional Health Concerns Assessment Noted Time PHQ-9 Depression Total Score: 0 11/24/19 21 3:00 PM CARPET INSTALLER documented as of this encounter Care Teams Loan Underwriter Relationship Specialty Start Date End Date Mehran Bloom MD PCP - General Internal Medicine 09/24/15 Salvador Harmon MD [address] [place] [address] Consulting Physician Pulmonary Disease 01/14/25 Reji Donald MD [address] [place] [address] Consulting Physician Neurology 04/24/25 documented as of this encounter
--- OUTSIDE RECORDS SUMMARY | 2025-10-01 16:01 | XMS_ITS | Encounter Summary ---
Author Organization [facility] Address [address] [place] [address] Phone Care Team Providers Care Diesel Mechanic Helper Name Role Phone Mehran Bloom MD Primary Care Provider [phone] Salvador Harmon MD Unavailable Reji Donald MD Unavailable [phone] Reason for Visit * Reason Comments Medication Refill Encounter Details Date Type Department Care Team (Late st Contact Info) Description 02/24/2021 Refill [facility] - Internal [facility] [address] [place] [address] Jane Holliday, [facility] [address] [place] [address] Medication Refill Social History Tobacco Use Types [...] st Contact Info) Description 10/30/2025 10:00 AM ANDROID DEVELOPER [facility] [address] [place] [address] Salvador Haromn MD [address] [place] [address] 02/26/2026 9:40 AM CDT Office Visit [facility] - Primary Care - [place] [address] [place] [phone] Mehran Bloom MD [address] [place], [place] [phone] documented as of this encounter Visit Diagnoses Not on filedocumented in this encounter Additional Health Concerns Assessment Noted Time PHQ-9 Depression Total Score: 0 11/24/19 21 3:00 PM ANDROID DEVELOPER documented as of this encounter Care Teams Diesel Mechanic Helper Relationship Specialty Start Date End Date Mehran Bloom MD PCP - General Internal Medicine 09/24/15 Salvador Harmon MD [address] [place] [address] Consulting Physician Pulmonary Disease 01/14/25 Reji Donald MD [address] [place] [address] Consulting Physician Neurology 04/24/25 documented as of this encounter
--- OUTSIDE RECORDS SUMMARY | 2025-10-01 16:01 | XMS_ITS | Encounter Summary ---
Author Organization [facility] Address [address] [place] [address] Phone Care Team Providers Care Strickler Attendant Name Role Phone Mehran Bloom MD Primary Care Provider [phone] Salvador Harmno MD Unavailable Reji Donald MD Unavailable [phone] Reason for Visit * Reason Comments Medication Refill Encounter Details Date Type Department Care Team (Late st Contact Info) Description 09/21/2021 Refill [facility] - Internal Medicine - [place] [address] [place] [address] Mehran Bloom MD [address] [place] [address] Medication Refill Social History Tobacco Use Types [...] COVID-19? No / Unsure 09/24/2021 3:21 PM INSIDE ACCOUNT EXECUTIVE documented as of this encounter Functional Status * Question Answer Date of Assessment Author BP 140/80 09/24/2021 3:26 PM INSIDE ACCOUNT EXECUTIVE JavierJose G salgadoa M, WEIGHT LOSS COUNSELOR Temp 98.5 09/24/2021 3:26 PM INSIDE ACCOUNT EXECUTIVE JavierJose G salgadoa M, WEIGHT LOSS COUNSELOR Temp src Temporal 09/24/2021 3:26 PM INSIDE ACCOUNT EXECUTIVE JavierMaritza salgadocia M, WEIGHT LOSS COUNSELOR Pulse 70 09/24/2021 3:26 PM INSIDE ACCOUNT EXECUTIVE JavierMaritza salgadocia M, WEIGHT LOSS COUNSELOR SpO2 98 09/24/2021 3:26 PM INSIDE ACCOUNT EXECUTIVE JavierMaritza salgadocia M, WEIGHT LOSS COUNSELOR Height 63 09/24/2021 3:26 PM INSIDE ACCOUNT EXECUTIVE JavierMaritza salgadocia M, WEIGHT LOSS COUNSELOR Weight 2400 09/24/2021 3:26 PM INSIDE ACCOUNT EXECUTIVE Maritza Muñozcia M, WEIGHT LOSS COUNSELOR * BSA (Calculated - sq m) Answer Date of Assessment Author 1.74 09/24/2021 3:26 PM INSIDE ACCOUNT EXECUTIVE Maritza Orrcia M, WEIGHT LOSS COUNSELOR * BMI (Calculated) Answer Date of Assessment Author 26.6 09/24/2021 3:26 PM INSIDE ACCOUNT EXECUTIVE Maritza Orrcia M, WEIGHT LOSS COUNSELOR * BMI (Calculated) Answer Date of Assessment Author 26.6 09/24/2021 3:26 PM INSIDE ACCOUNT EXECUTIVE Kirby Jazmin M, WEIGHT LOSS COUNSELOR documented as of this encounter Mental Status * Question Answer Entry Date Author BP 140/80 09/24/2021 3:26 PM INSIDE ACCOUNT EXECUTIVE Jose G Muñoza M, WEIGHT LOSS COUNSELOR Temp 98.5 09/24/2021 3:26 PM INSIDE ACCOUNT EXECUTIVE JavierMaritza salgadocia M, WEIGHT LOSS COUNSELOR Pulse 70 09/24/2021 3:26 PM INSIDE ACCOUNT EXECUTIVE JavierMaritza salgadocia M, WEIGHT LOSS COUNSELOR SpO2 98 09/24/2021 3:26 PM INSIDE ACCOUNT EXECUTIVE JavierMaritza salgadocia M, WEIGHT LOSS COUNSELOR Weight 2400 09/24/2021 3:26 PM INSIDE ACCOUNT EXECUTIVE Javiermiles figueroa Jazmin M, WEIGHT LOSS COUNSELOR documented in this encounter Plan of Treatment Upcoming Encounters Date Type Department Care Team (Late st Contact Info) Description 10/30/2025 10:00 AM INSIDE ACCOUNT EXECUTIVE [facility] [place] [address] [place] [phone] Salvador Harmon MD [address] [place] [address] 02/26/2026 9:40 AM CDT Office Visit [facility] - Primary Care - [place] [address] [place] [address] Mehran Bloom MD [address] [place] [address] documented as of this encounter Visit Diagnoses Not on filedocumented in this encounter Additional Health Concerns Assessment Noted Time PHQ-9 Depression Total Score: 1 07/02/20 21 9:00 AM CDT documented as of this encounter Care Teams Strickler Attendant Relationship Specialty Start Date End Date Mehran Bloom MD PCP - General Internal Medicine 09/24/15 Salvador Harmon MD [address] [place] [address] Consulting Physician Pulmonary Disease 01/14/25 Reji Donald MD [address] [place] [address] Consulting Physician Neurology 04/24/25 documented as of this encounter
--- OUTSIDE RECORDS SUMMARY | 2025-10-01 16:01 | XMS_ITS | Encounter Summary ---
Author Organization [facility] Address [address] [place] [address] Phone Care Team Providers Care Trash Man Name Role Phone Mehran Bloom MD Primary Care Provider [phone] Salvador Harmon MD Unavailable Reji Donald MD Unavailable [phone] Reason for Visit * Reason Comments Medication Refill Encounter Details Date Type Department Care Team (Late st Contact Info) Description 01/11/2024 Refill [facility] - Internal [facility] [address] [place] [address] Mehran Bloom MD [address] [place] [address] Medication Refill Social History Tobacco Use Types [...] Provider Dept 08/14/23 Telemedicine Mehran Bloom MD [facility] [place] 08/07/23 Office Visit Mehran Bloom MD [facility] 05/04/23 Office Visit Mehran Bloom MD [facility] 03/30/23 Office Visit Mehran Bloom MD [facility] 03/17/23 Office Visit Jane Holliday PAC [facility] Showing recent visits within past 365 days and meeting all other requirements Future Appointments Date Type Provider Dept 02/08/24 Appointment Mehran Bloom MD [facility] Showing future appointments within next 90 days and meeting all other requirements UNT COLLECTOR documented in this encounter Plan of Treatment Upcoming Encounters Date Type Department Care Team (Late st Contact Info) Description 10/30/2025 10:00 AM ACCOUNT COLLECTOR Office Visit [facility] - Pulmonology & Sleep Medicine [facility] [address] [place] [address] Salvador Harmon MD [address] [place] [address] 02/26/2026 9:40 AM CDT Office Visit [facility] - Primary Care - [place] [address] [place] [phone] Mehran Bloom MD [address] [address] documented as of this encounter Visit Diagnoses Not on filedocumented in this encounter Additional Health Concerns Assessment Noted Time PHQ-9 Depression Total Score: 1 07/02/20 21 9:00 AM CDT documented as of this encounter Care Teams Trash Man Relationship Specialty Start Date End Date Mehran Bloom MD PCP - General Internal Medicine 09/24/15 Salvador Harmon MD [address] [place] [address] Consulting Physician Pulmonary Disease 01/14/25 Reji Donald MD [address] [place] [address] Consulting Physician Neurology 04/24/25 documented as of this encounter
--- OUTSIDE RECORDS SUMMARY | 2025-10-01 16:01 | XMS_ITS | Encounter Summary ---
Author Organization [facility] Address [address] [place] [id number] Phone Care Team Providers Care Human Performance Consultant Name Role Phone Mehran Bloom MD Primary Care Provider [phone] Salvador Harmon MD Unavailable Reji Donald MD Unavailable [phone] Reason for Visit * Reason Comments Medication Refill Encounter Details Date Type Department Care Team (Late st Contact Info) Description 04/16/2024 Refill [facility] - Internal Medicine [facility] [address] [place] [phone] Mehran Bloom MD [address] [place] [address] Medication Refill Social History Tobacco Use Types Packs/Day Years Used Date Smoking Tobacco: Never Passive Smoke Exposure: Never Smokeless Tobacco: Never Alcohol Use Standard Drinks/Week Comments Not Currently 0 (1 standard drink = 0.6 oz pur e alcohol) glass of wine rarely [facility] Utilities Answer Date Recorded In the past 12 months has [employer] electric, gas, oil, or water company threatened [...] often do you attend chur ch or voodoo services? More than 4 times per year 02/08/2024 Do you belong to any clubs o r organizations such as presybeterian groups, unions, fraternal or athletic groups, or [...] Total Score - Questions 1-9 1 01/12 [facility] - Occupational Stress Questionnaire Answer Date Recorded [...] PM CDT Medication(s) refilled and signed per [facility] Chronic Medication Refill Standing Order for Pediatricand [...] Dept 03/12/24 Office Visit Mehran Bloom MD [facility] [place] 02/27/24 Office Visit Mehran Bloom MD [facility] [place] 02/08/24 Office Visit Mehran Bloom MD [facility] [place] 08/14/23 Telemedicine Mehran Bloom MD [facility] [place] 08/07/23 Office Visit Mehran Bloom MD [facility] [place] 05/04/23 Office Visit Mehran Bloom MD [facility] [place] Showing recent visits within past 365 days and meeting all other requirements Future Appointments Date Type Provider Dept 05/14/24 Appointment Mehran Bloom MD [facility] [place] Showing future appointments within next 90 days and meeting all other requirements documented in this encounter Plan of Treatment Upcoming Encounters Date Type Department Care Team (Late st Contact Info) Description 10/30/2025 10:00 AM MANAGER BENCH Office Visit [facility] - Pulmonology & Sleep Medicine [facility] [address] [place] [phone] Salvador Harmon MD [address] [place] [phone] 02/26/2026 9:40 AM CDT Office Visit [facility] [place] [address] [place] [address] Mehran Bloom MD [address] [place] [address] documented as of this encounter Visit Diagnoses Not on filedocumented in this encounter Additional Health Concerns Assessment Noted Time PHQ-9 Depression Total Score: 1 02/08/20 24 8:58 AM CDT documented as of this encounter Care Teams Human Performance Consultant Relationship Specialty Start Date End Date Mehran Bloom MD PCP - General Internal Medicine 09/24/15 Salvador Harmon MD [address] [place] [address] Consulting Physician Pulmonary Disease 01/14/25 Reji Donald MD [address] [place] [address] Consulting Physician Neurology 04/24/25 documented as of this encounter
--- OUTSIDE RECORDS SUMMARY | 2025-10-01 16:01 | XMS_ITS | Encounter Summary ---
Author Organization [facility] Address [address] [place] [id number] Phone Care Team Providers Care Hr Manager Name Role Phone Mehran Bloom MD Primary Care Provider [phone] Salvador Harmon MD Unavailable Reji Donald MD Unavailable [phone] Reason for Visit * Reason Comments Medication Refill Encounter Details Date Type Department Care Team (Late st Contact Info) Description 03/30/2021 [facility]ill [facility] [address] [place] [phone] Mehran Bloom MD [address] [place] [address] Medication Refill Social History Tobacco Use Types [...] st Contact Info) Description 10/30/2025 10:00 AM MACHINIST SET UP Office [facility] [address] [place] [phone] Salvador Harmon MD [address] [place] [phone] 02/26/2026 9:40 AM CDT Office Visit [facility] - [facility] Care - [place] [address] [place] [phone] Mehran Bloom MD [address] [place], [place] [id number] documented as of this encounter Visit Diagnoses Not on filedocumented in this encounter Additional Health Concerns Assessment Noted Time PHQ-9 Depression Total Score: 0 11/24/19 21 3:00 PM MACHINIST SET UP documented as of this encounter Care Teams Hr Manager Relationship Specialty Start Date End Date Mehran Bloom MD PCP - General Internal Medicine 09/24/15 Salvador Harmon MD [address] [place] [phone] Consulting Physician Pulmonary Disease 01/14/25 Reji Donald MD [address] [place] [address] Consulting Physician Neurology 04/24/25 documented as of this encounter
--- OUTSIDE RECORDS SUMMARY | 2025-10-01 16:02 | XMS_ITS ---
Author Organization [facility] Address [address] [place] [address] Phone Care Team Providers Care Movie Actor Name Role Phone Mehran Bloom MD Primary Care Provider [phone] Salvador Harmon MD Unavailable Reji Donald MD Unavailable [phone] [facility] Chronic Care Management Status:Identified (Enrolling) Start date:06/25/2025 Enrollment reason:Identified using claims or encounter data Related social drivers of health:Intimate Partner Violence, Social Connections, Alcohol Use, Tobacco Use, Financial Resource Strain,Depression, Stress, Physical Activity, Food Insecurity, Transportation Needs, Housing Stability, Utilities Continued Care and Services Coordination
== END 2025-10-01 12:04 | disposition home or self-care (01) ==
PROVIDERS: Emergency Provider Nurse Practitioner; PCP Internal Medicine
DX: J18.9 Pneumonia, unspecified organism (principal); I25.10 Atherosclerotic heart disease of native coronary artery without angina pectoris; I10 Essential (primary) hypertension; E78.00 Pure hypercholesterolemia, unspecified; Z95.5 Presence of coronary angioplasty implant and graft; Z79.82 Long term (current) use of aspirin
CPT/HCPCS: 71046; 99213; G0463